=== PATIENT | male | born 1965 | race Caucasian/White ===

== ENCOUNTER → 2016-12-04 | Outpatient (CLI) | payer OTHER ==
[~2016-12-04] MED LIST: ADVA100A INH; ALBUAER3 INH; CIPR-9 PO; METR-1 PO; PERC5TAB12 PO
[2016-12-04 12:06] LABS: AUTOMATED NEUTROPHIL # 15.4 TH/MM3 (1.8-7.7); BASOPHIL % 0.2 % (0.0-2.0); EOSINOPHIL # 0.1 TH/MM3 (0-0.4); EOSINOPHIL % 0.8 % (0.0-4.0); HEMATOCRIT 45.1 % (39.0-51.0); HEMO FLAGS DIFF FINAL; LYMPH % 9.8 % (9.0-44.0); LYMPHOCYTE # 1.9 TH/MM3 (1.0-4.8); MEAN CELL VOLUME 95.3 FL (80.0-100.0); MEAN CORPUSCULAR HEMOGLOBIN 31.6 PG (27.0-34.0); MEAN CORPUSCULAR HGB CONC 33.1 % (32.0-36.0); MONO % 9.5 % (0.0-8.0); NEUT % 79.7 % (16.0-70.0); PLATELET COUNT 210 TH/MM3 (150-450); RED BLOOD COUNT 4.73 MIL/MM3 (4.50-5.90); RED CELL DISTRIBUTION WIDTH 13.2 % (11.6-17.2); WHITE BLOOD COUNT 19.3 TH/MM3 (4.0-11.0)
[2016-12-04 12:26] LABS: ALT (GPT) 22 U/L (12-78); ANION GAP 8 MEQ/L (5-15); AST (GOT) 12 U/L (15-37); BICARBONATE 26.6 MEQ/L (21.0-32.0); BLOOD UREA NITROGEN 10 MG/DL (7-18); CHLORIDE 103 MEQ/L (98-107); GLOMERULAR FILTRATION RATE 75 ML/MIN (>89); GLUCOSE,FASTING 88 MG/DL (74-99); POTASSIUM 4.5 MEQ/L (3.5-5.1); SODIUM (NA) 138 MEQ/L (136-145)
[2016-12-04 12:36] LABS: ALKALINE PHOSPHATASE 85 U/L (45-117); HDL CHOLESTEROL 53.9 MG/DL (40.0-60.0); LDL CHOLESTEROL 110 MG/DL (0-99); TOTAL BILIRUBIN ADULT 1.2 MG/DL (0.2-1.0)
== END ==
LOC: CLAB 11:47
PROVIDERS: ATTEND Family Medicine
DX: J45.909 Unspecified asthma, uncomplicated (principal); R10.30 Lower abdominal pain, unspecified
CPT/HCPCS: 36415; 80053; 80061; 84443; 85025

== ENCOUNTER → 2016-12-04 | Outpatient (CLI) | payer OTHER ==
--- NOTE | 2016-12-04 12:50 | RADRPT ---
EXAM DATE/TIME: 12/04/2016 12:18 [facility] COMPARISON: CHEST PA & LAT, July 28, 2015, 21:42. INDICATIONS : Pain all over abdomen, especially on left side for several months, some nausea and diarrhea, family h istory of diverticulosis, no abdominal surgery MEDICAL HISTORY : None. SURGICAL HISTORY : None. ENCOUNTER: Initial ACUITY: 3 months PAIN SCORE: 5/10 LOCATION: Bilateral abdomen FINDINGS: Supine and upright views of the abdomen were performed. The abdominal bowel gas pattern is normal. No air fluid levels are seen. No abnormal masses, calcifications, or organomegaly is seen. The visu alized lower lungs are clear. No evidence of free intraperitoneal gas. There is some compression of the T12 vertebral body. This was present on a prior chest x-ray from 07/28/15. There is some degenera tive change in the lower lumbar spine. CONCLUSION: Negative abdominal series. Abdiaziz Hope MD on December 04, 2016 at 12:42 Board Certified Radiologist. This report was verified electronically.
== END ==
LOC: HRAD 12:07
PROVIDERS: ATTEND Family Medicine
DX: J45.909 Unspecified asthma, uncomplicated (principal); R10.30 Lower abdominal pain, unspecified
CPT/HCPCS: 74020

== ENCOUNTER 2017-01-11 17:24 | Inpatient (IN) | payer OTHER ==
[~2017-01-11] VITALS: Ht 175.3 cm; Wt 85.0 kg
[~2017-01-11 17:24] MED LIST changes: -CIPR-9 PO; -METR-1 PO; -PERC5TAB12 PO
[2017-01-11 17:25] VITALS: BP 130/84; PULSE 97; RESP 20; TEMP 98.5; O2SAT 97
[2017-01-11] MEDS ORDERED: SODIUM CHLORIDE 0.9% FLUSH 10 ML FLUSH IV FLUSH PRN ×2 (17:45→22:45)
--- NOTE | 2017-01-11 18:05 | PD ---
HPI Chief Complaint: GI Complaint Time Seen by Provider: 18:03 Travel History International Travel<30 days: No Contact w/Intl Traveler<30days: No Traveled to known affect area: No History of Present Illness HPI Patient 51-year-old male presents to emergency department for what feels like a "blockage" in his abdomen. Patient states he's never had an obstruction before. He states his been having nausea for the past few days has been unable tolerate by mouth liquids. Denies any fevers. He states he started to feel very weak because he can't get any nutrients into his system. He also states she's been having some nonbloody diarrhea. States his abdomen may be a little bit more distended than previous. Denies any dysuria denies any heavy alcohol use in the past. PFSH Past Medical History Asthma: Yes Blood Disorders: No Cancer: No Cardiovascular Problems: No Endocrine: No Genitourinary: No Immune Disorder: No Musculoskeletal: Yes Neurologic: No Psychiatric: No Reproductive: No Respiratory: Yes (ASTHMA) Past Surgical History Body Medical Devices: ROBSON LEFT LEG Other Surgery: Yes Social History Alcohol Use: No Tobacco Use: No Substance Use: No Allergies-Medications (Allergen,Severity, Reaction): Coded Allergies: No Known Allergies (Unverified , 01/11/17) Reported Meds & Prescriptions Reported Meds & Active Scripts Active Advair Diskus Inh (Fluticasone-Salmeterol Inh) 100-50 Mcg/Blist Aer 1 Puff INH BID Rinse mouth after use. Proair Hfa 8.5 GM Inh (Albuterol Sulfate) 90 Mcg/Act Aer 2 Puff INH Q6H PRN 108 mcg/actuation Review of Systems Except as stated in HPI: all other systems reviewed are Neg Physical Exam Narrative GENERAL: [Well-developed well-nourished, appears minimally uncomfortable. SKIN: Focused skin assessment warm/dry. HEAD: Atraumatic. Normocephalic. EYES: Pupils equal and round. No scleral icterus. No injection or drainage. ENT: No nasal bleeding or discharge. Mucous membranes pink and moist. NECK: Trachea midline. No JVD. CARDIOVASCULAR: Regular rate and rhythm. No murmur appreciated. RESPIRATORY: No accessory muscle use. Clear to auscultation. Breath sounds equal bilaterally. GASTROINTESTINAL: Abdomen soft, non-tender, possibly minimally distended. Hepatic and splenic margins not palpable. Bowel sounds are hypoactive. Diffusely minimally tender without any rebound or percussive tenderness. MUSCULOSKELETAL: No obvious deformities. No clubbing. No cyanosis. No edema. NEUROLOGICAL: Awake and alert. No obvious cranial nerve deficits. Motor grossly within normal limits. Normal speech. PSYCHIATRIC: Appropriate mood and affect; insight and judgment normal. Data Data Last Documented VS Vital Signs Date Time Temp Pulse Resp B/P Pulse Ox O2 Delivery O2 Flow Rate FiO2 01/11/17 18:13 Room Air 01/11/17 17:25 98.5 97 20 130/84 97 Orders Complete Blood Count With Diff (01/11/17 17:41) Comprehensive Metabolic Panel (01/11/17 17:41) Lipase (01/11/17 17:41) Urinalysis - C+S If Indicated (01/11/17 17:41) Iv Access Insert/Monitor (01/11/17 17:41) Ecg Monitoring (01/11/17 17:41) Oximetry (01/11/17 17:41) Sodium Chloride 0.9% Flush (Ns Flush) (01/11/17 17:45) Ct Abd/Pel W Iv Contrast(Rout) (01/11/17 ) Iohexol 350 Inj (Omnipaque 350 Inj) (01/11/17 18:54) NPO (01/11/17 19:18) Insert Ng Tube (01/11/17 19:18) Lactic Acid (01/11/17 19:18) Blood Culture (01/11/17 19:23) Ampicillin-Sulbactam Inj (Unasyn Inj) (01/11/17 19:30) Consult General Surgery (01/11/17 ) (Hub Use Only)Inp Phy Cons/Ref (01/11/17 ) Consult Donovan Nfs (01/11/17 ) Lorazepam Inj (Ativan Inj) (01/11/17 21:15) Lidocaine 2% Jelly (Xylocaine 2% Jelly) (01/11/17 21:15) Sodium Chlor 0.9% 1000 Ml Inj (Ns 1000 M (01/11/17 21:30) Diet Npo (01/12/17 Breakfast) Admit Order (Ed Use Only) (01/11/17 ) Labs Laboratory Tests Test 01/11/17 01/11/1701/11/17 18:10 18:25 18:49 White Blood Count 28.4 TH/MM3 Red Blood Count 5.17 MIL/MM3 Hemoglobin 16.2 GM/DL Hematocrit 49.5 % Mean Corpuscular Volume 95.9 FL Mean Corpuscular Hemoglobin 31.4 PG Mean Corpuscular Hemoglobin 32.7 % Concent Red Cell Distribution Width 13.9 % Platelet Count 243 TH/MM3 Mean Platelet Volume 11.4 FL Neutrophils (%) (Auto) 90.5 % Lymphocytes (%) (Auto) 3.2 % Monocytes (%) (Auto) 6.1 % Eosinophils (%) (Auto) 0.0 % Basophils (%) (Auto) 0.2 % Neutrophils # (Auto) 25.7 TH/MM3 Lymphocytes # (Auto) 0.9 TH/MM3 Monocytes # (Auto) 1.7 TH/MM3 Eosinophils # (Auto) 0.0 TH/MM3 Basophils # (Auto) 0.0 TH/MM3 CBC Comment DIFF FINAL Differential Comment Sodium Level 135 MEQ/L Potassium Level 4.1 MEQ/L Chloride Level 97 MEQ/L Carbon Dioxide Level 27.6 MEQ/L Anion Gap 10 MEQ/L Blood Urea Nitrogen 19 MG/DL Creatinine 1.17 MG/DL Estimat Glomerular Filtration 66 ML/MIN Rate Random Glucose 118 MG/DL Calcium Level 9.6 MG/DL Total Bilirubin 0.6 MG/DL Aspartate Amino Transf 13 U/L (AST/SGOT) Alanine Aminotransferase 17 U/L (ALT/SGPT) Alkaline Phosphatase 98 U/L Total Protein 8.6 GM/DL Albumin 3.4 GM/DL Lipase 67 U/L Urine Color YELLOW Urine Turbidity HAZY Urine pH 6.0 Urine Specific [place] 1.043 Urine Protein 300 mg/dL Urine Glucose (UA) NEG mg/dL Urine Ketones 40 mg/dL Urine Occult Blood MOD Urine Nitrite NEG Urine Bilirubin NEG Urine Urobilinogen 2.0 MG/DL Urine Leukocyte Esterase NEG Urine RBC 3 /hpf Urine WBC 5 /hpf Urine Squamous Epithelial 1 /hpf Cells Urine Mucus MANY /lpf Microscopic Urinalysis Comment CULT NOT INDICATED Lactic Acid Level 1.6 mmol/L MDM Medical Decision Making Medical Screen Exam Complete: Yes Emergency Medical Condition: Yes Differential Diagnosis Small bowel obstruction, diverticular abscess, acute abdomen, electro-light abnormality, sepsis. Narrative Course Patient roomed in the emergency department, does have a distended abdomen and my concern is for obstruction versus ileus. CAT scan was indicated and does show that the patient apparently has small bowel obstruction with an intra- abdominal abscess. At 2044 Dr. Serrano is at the bedside to examine patient. He was started on Unasyn and a fluid bolus was given. His vital signs are stable at this time. The remainder of the patient's labs do not indicate severe sepsis or septic shock. Dr. Serrano has requested medicine admission for management of sepsis and he will follow for surgical options. An NG tube was ultimately placed after Dr. Serrano remained recommendation and confirmed by KUB. Dose of Ativan was ordered prior to placement of NG tube. Report was given to who will admit. Critical Care Narrative Aggregate critical care time was 35 minutes. Time to perform other separately billable procedures was not included in the critical care time. My time did not include minutes spent treating any other patients simultaneously or on activities that did not directly contribute to the patient's treatment. The services I provided to this patient were to treat and/or prevent clinically significant deterioration that could result in: , Disability, organ failure, need for surgery, bowel perforation. I provided critical care services requiring my management, as noted below: Chart data review, documentation time, medication orders and management, vital sign assessments/reviewing monitor data, ordering and reviewing lab tests, ordering and interpreting/reviewing x-rays and diagnostic studies, care of the patient and discussion of the patient with the admitting physicians. Extensive time spent counseling patient about the need for admission and NG tube Diagnosis Primary Impression: Small bowel obstruction Additional Impressions: Intestinal diverticular abscess Sepsis Qualified Code: A41.9 - Sepsis, due to unspecified organism Admitting Information Admitting Physician Requests: Admit Condition: Stable Jett Garcia MD Jan 11, 2017 18:05
[2017-01-11 18:38] LABS: AUTOMATED NEUTROPHIL # 25.7 TH/MM3 (1.8-7.7); BASOPHIL % 0.2 % (0.0-2.0); HEMATOCRIT 49.5 % (39.0-51.0); HEMO FLAGS DIFF FINAL; LYMPH % 3.2 % (9.0-44.0); LYMPHOCYTE # 0.9 TH/MM3 (1.0-4.8); MEAN CELL VOLUME 95.9 FL (80.0-100.0); MEAN CORPUSCULAR HEMOGLOBIN 31.4 PG (27.0-34.0); MEAN CORPUSCULAR HGB CONC 32.7 % (32.0-36.0); MONO % 6.1 % (0.0-8.0); NEUT % 90.5 % (16.0-70.0); PLATELET COUNT 243 TH/MM3 (150-450); RED BLOOD COUNT 5.17 MIL/MM3 (4.50-5.90); RED CELL DISTRIBUTION WIDTH 13.9 % (11.6-17.2); WHITE BLOOD COUNT 28.4 TH/MM3 (4.0-11.0)
[2017-01-11 18:43] LABS: BLOOD, URINE MOD (NEG); COMMENT (UR) CULT NOT INDICATED; CULTURE IF INDICATED CULT NOT INDICATED; GLUCOSE,URINE NEG (NEG); KETONE, URINE 40 mg/dL (NEG); MUCUS URINE MANY /lpf (OCC); NITRITE,URINE NEG (NEG); SQUAMOUS EPITHELIAL CELL URINE 1 /hpf (0-5); URINE COLOR YELLOW (YELLW/STRAW)
[2017-01-11] MEDS ORDERED: IOHEXOL 350 MG/ML 10 ML VIAL (for RAD DIAG) IV ONE (18:54)
--- NOTE | 2017-01-11 19:18 | RADRPT ---
EXAM DATE/TIME: 01/11/2017 18:32 [facility] COMPARISON: ABDOMEN FLAT & UPRIGHT, December 04, 2016, 12:18. INDICATIONS : Diffuse abdomen pain with nausea, vomiting and diarrhea for four days. IV CONTRAST: 90 cc Omnipaque 350 (iohexol) IV ORAL CONTRAST: No oral contrast ingested. RADIATION DOSE: 9.96 CTDIvol (mGy) MEDICAL HISTORY : None SURGICAL HISTORY : None. ENCOUNTER: Initial ACUITY: 4 - 6 days PAIN SCALE: 6/10 LOCATION: Bilateral abdomen TECHNIQUE: Volumetric scanning of the abdomen and pelvis was performed. Using automated exposure control and ad justment of the mA and/or kV according to patient size, radiation dose was kept as low as reasonably achievable to obtain optimal diagnostic quality images. FINDINGS: The examination is abnormal demonstrating multiple dilated loops of small bowel with air fluid levels and small bowel loops measuring up to 4 cm in diameter. There is a transition point which is seen i n the lower midline abdomen, best seen on image #51. At this transition point there is a thin-walled lesion with air-fluid level that measures 3.8 cm. A portion of the sigmoid colon is present close t o this area and there is induration of of the fat between the sigmoid colon and this air-fluid level. There also multiple small diverticula throughout the sigmoid colon. No evidence of free fluid in t he pelvis. The liver, gallbladder, spleen, kidneys, adrenal glands, aorta, and pancreas are normal in appearance . The intra-abdominal wall is intact. No evidence of inguinal hernia. Urinary bladder has smooth m argins. There is some thickening along the inferior pulmonary ligament on the left side with possibl e air bronchograms suggesting a small infiltrate or atelectasis. No evidence of pleural effusion. T he right lower lung is clear. Osseous structures are intact. CONCLUSION: Small bowel obstruction with a transition point in the lower midline abdomen and with some induration of the fat about what appears to be a thin-walled abscess, possibly related to mid sigmoid diverticu litis. Filemon Ladd MD on January 11, 2017 at 19:08 Board Certified Radiologist. This report was verified electronically.
[2017-01-11 19:26] LABS: ALKALINE PHOSPHATASE 98 U/L (45-117); ALT (GPT) 17 U/L (12-78); ANION GAP 10 MEQ/L (5-15); AST (GOT) 13 U/L (15-37); BICARBONATE 27.6 MEQ/L (21.0-32.0); BLOOD UREA NITROGEN 19 MG/DL (7-18); CHLORIDE 97 MEQ/L (98-107); GLOMERULAR FILTRATION RATE 66 ML/MIN (>89); POTASSIUM 4.1 MEQ/L (3.5-5.1); SODIUM (NA) 135 MEQ/L (136-145); TOTAL BILIRUBIN ADULT 0.6 MG/DL (0.2-1.0)
[2017-01-11] MEDS ORDERED: AMPICILLIN-SULBACTAM INJ 3 GM in SODIUM CHLORIDE 0.9% INJ 100 ML IV ONE (19:30)
[2017-01-11] MEDS ORDERED: LORazepam 2 MG/ML VIAL IV PUSH ONE (21:15)
[2017-01-11] MEDS ORDERED: LIDOCAINE 2% JELLY 30 ML TUBE TOPICAL ONE (21:15)
[2017-01-11] MEDS ORDERED: SODIUM CHLOR 0.9% 1000 ML INJ 1,000 ML IV ONE (21:30)
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
[2017-01-11 22:43] VITALS: BP 145/77; PULSE 100; RESP 20; O2SAT 96
[2017-01-11] MEDS ORDERED: ACETAMINOPHEN 325 MG TAB PO PRN ×2 (22:45)
[2017-01-11] MEDS ORDERED: NALOXONE HCL 0.4 MG/ML AMP IV PRN (22:45)
[2017-01-11] MEDS ORDERED: RESP: ALBUTEROL 2.5 MG/IPRATROPIUM 0.5 MG NEB (PRN) NEB (22:45)
--- NOTE | 2017-01-11 22:55 | HHI.HP ---
[facility] Adela Todd MD Admission Diagnosis SEPSIS, abdominal abscess, SBO. Diagnoses: (1) Intestinal diverticular abscess (2) Sepsis (3) Small bowel obstruction (4) COPD (chronic obstructive pulmonary disease) (5) Perforated diverticulum (6) Leukocytosis (7) Asthma Chief Complaint: Abdominal pain Travel History International Travel<30 Days: No Contact w/Intl Traveler <30 Da: No Traveled to Known Affected Are: No Sepsis Criteria SIRS Criteria (2 or more): Heart rate over 90, WBC > 51103, < 4000 or > 10% bands Sepsis Criteria (SIRS+source): Infect source susp/known Criteria Outcome: Meets sepsis criteria History of Present Illness 51-year-old male with a history of asthma presented to the ED for evaluation of worsening symptoms abdominal pain 4 days rated and 8/10 in intensity associated with emesis and nausea. The pain is sharp and patient denies any traumatic event, prior surgical history. He reports, the pain to have started as an acute and sudden onset without any warning. He has had significant decrease by mouth intake CT abdomen in ED revealed perforated diverticulitis along with small bowel obstruction with WBC of 28,000. He reports some shortness of breath however no chest pain or GI bleed Review of Systems Other 12 systems reviewed and are negative except for the one mentioned in history of present illness Past Family Social History Past Medical History Asthma: Yes Past Surgical History ROBSON LEFT LEG Reported Medications Advair Diskus Inh (Fluticasone-Salmeterol Inh) 100-50 Mcg/Blist Aer 1 Puff INH BID Rinse mouth after use. Proair Hfa 8.5 GM Inh (Albuterol Sulfate) 90 Mcg/Act Aer 2 Puff INH Q6H PRN 108 mcg/actuation Allergies: Coded Allergies: No Known Allergies (Unverified , 01/11/17) Family History Family history positive for diverticular disease Father had a history of asthma, CAD Social History Alcohol Use: No Tobacco Use: No Substance Use: No Physical Exam Vital Signs Vital Signs Date Time Temp Pulse Resp B/P Pulse Ox O2 Delivery O2 Flow Rate FiO2 01/11/17 22:43 100 20 145/77 96 Room Air 01/11/17 18:13 Room Air 01/11/17 17:25 98.5 97 20 130/84 97 Room Air Physical Exam GENERAL: This is a well-nourished, well-developed patient, in no apparent distress. SKIN: No rashes, ecchymoses or lesions. Cool and dry. HEAD: Atraumatic. Normocephalic. No temporal or scalp tenderness. EYES: Pupils equal round and reactive. Extraocular motions intact. No scleral icterus. No injection or drainage. ENT: Nose without bleeding, purulent drainage or septal hematoma. Throat without erythema, tonsillar hypertrophy or exudate. Uvula midline. Airway patent. NECK: Trachea midline. No JVD or lymphadenopathy. Supple, nontender, no meningeal signs. CARDIOVASCULAR: Regular rate and rhythm without murmurs, gallops, or rubs. RESPIRATORY: Clear to auscultation. Breath sounds equal bilaterally. No wheezes , rales, or rhonchi. GASTROINTESTINAL: Abdomen soft, mildly tender, nondistended. No hepato- splenomegaly, or palpable masses. Hypoactive bowel sounds MUSCULOSKELETAL: Extremities without clubbing, cyanosis, or edema. No joint tenderness, effusion, or edema noted. No calf tenderness. Negative Homans sign bilaterally. NEUROLOGICAL: Awake and alert. Cranial nerves II through XII intact. Motor and sensory grossly within normal limits. Five out of 5 muscle strength in all muscle groups. Normal speech. Laboratory Laboratory Tests Test 01/11/17 01/11/17 01/11/17 18:10 18:25 18:49 White Blood Count 28.4 Red Blood Count 5.17 Hemoglobin 16.2 Hematocrit 49.5 Mean Corpuscular Volume 95.9 Mean Corpuscular Hemoglobin 31.4 Mean Corpuscular Hemoglobin 32.7 Concent Red Cell Distribution Width 13.9 Platelet Count 243 Mean Platelet Volume 11.4 Neutrophils (%) (Auto) 90.5 Lymphocytes (%) (Auto) 3.2 Monocytes (%) (Auto) 6.1 Eosinophils (%) (Auto) 0.0 Basophils (%) (Auto) 0.2 Neutrophils # (Auto) 25.7 Lymphocytes # (Auto) 0.9 Monocytes # (Auto) 1.7 Eosinophils # (Auto) 0.0 Basophils # (Auto) 0.0 CBC Comment DIFF FINAL Differential Comment Sodium Level 135 Potassium Level 4.1 Chloride Level 97 Carbon Dioxide Level 27.6 Anion Gap 10 Blood Urea Nitrogen 19 Creatinine 1.17 Estimat Glomerular Filtration 66 Rate Random Glucose 118 Calcium Level 9.6 Total Bilirubin 0.6 Aspartate Amino Transf 13 (AST/SGOT) Alanine Aminotransferase 17 (ALT/SGPT) Alkaline Phosphatase 98 Total Protein 8.6 Albumin 3.4 Lipase 67 Urine Color YELLOW Urine Turbidity HAZY Urine pH 6.0 Urine Specific [place] 1.043 Urine Protein 300 Urine Glucose (UA) NEG Urine Ketones 40 Urine Occult Blood MOD Urine Nitrite NEG Urine Bilirubin NEG Urine Urobilinogen 2.0 Urine Leukocyte Esterase NEG Urine RBC 3 Urine WBC 5 Urine Squamous Epithelial 1 Cells Urine Mucus MANY Microscopic Urinalysis Comment CULT NOT INDICATED Lactic Acid Level 1.6 Date/Time Procedure Status Source Growth 01/11/17 19:40 Aerobic Blood Culture Received Blood Peripheral Pending 01/11/17 19:40 Anaerobic Blood Culture Received Blood Peripheral Pending Result Diagram: 01/11/17 1810 01/11/17 1810 Imaging Last Impressions Abdomen/Pelvis CT 01/11/17 0000 Signed Impressions: Service Date/Time: Wednesday, January 11, 2017 18:32 - CONCLUSION: Small bowel obstruction with a transition point in the lower midline abdomen and with some induration of the fat about what appears to be a thin-walled abscess, possibly related to mid sigmoid diverticulitis. Filemon Ladd MD Assessment and Plan Problem List: (1) Sepsis ICD Code: A41.9 Status: Acute (2) Intestinal diverticular abscess ICD Code: K63.0 Status: Acute (3) Small bowel obstruction ICD Code: K56.69 Status: Acute (4) COPD (chronic obstructive pulmonary disease) ICD Code: J44.9 Status: Acute (5) Asthma ICD Code: J45.909 Status: Acute (6) Leukocytosis ICD Code: D72.829 Status: Acute (7) Perforated diverticulum ICD Code: K57.80 Status: Acute Assessment and Plan 51-year-old man with Sepsis : Meets sepsis criteria; Heart rate over 90, WBC > 91189, < 4000 or > 10 % bands, Infect source susp/known (abdominal wall abscess/diverticulitis), treatment with Unasyn IV in ED 1, however will start Rocephin 1 g IV every 24 and Flagyl 500 mg IV every 8H pending culture Abdominal wall abscess/sigmoid diverticulitis Perforated diverticulitis -CT abdomen noted and review by me with finding of Small bowel obstruction with a transition point in the lower midline abdomen and with some induration of the fat about what appears to be a thin-walled abscess, possibly related to mid sigmoid diverticulitis -Treatment with Rocephin 1 g IV every 24 hours and Flagyl 500 mg every 8 hour pending culture report -Consult interventional radiology for evaluation for possible drainage of abscess Small Bowel obstruction Appreciate input from general surgery Continue with above antibiotics Nothing by mouth, NG tube placement, IV fluid hydration , pain management accordingly Asthma/COPD No exacerbation DuoNeb when necessary DVT prophylaxis: Bilateral SCDs GI prophylaxis: PPI Code Status Full code Discussed Condition With Patient, mother, ED physician, Physician Certification 2 Midnight Certification Type: Admission for Inpatient Services Order for Inpatient Services The services are ordered in accordance with Medicare regulations or non- Medicare payer requirements, as applicable. In the case of services not specified as inpatient-only, they are appropriately provided as inpatient services in accordance with the 2-midnight benchmark. Estimated LOS (days): 2 days is the estimated time the patient will need to remain in the hospital, assuming treatment plan goals are met and no additional complications. Post-Hospital Plan: Not yet determined Juan Pablo Hawkins MD Jan 11, 2017 22:55
[2017-01-11 23:25] VITALS: BP 138/78; PULSE 81; RESP 17; TEMP 97.9; O2SAT 96
[2017-01-11] MEDS: SODIUM CHLOR 0.9% 1000 ML INJ 1,000 ML IV SCH (23:28)
[2017-01-12] MEDS: MORPHINE SULFATE 4 MG/ML INJ IV PRN ×2 (00:04→05:27)
[2017-01-12] MEDS ORDERED: PATIENT OWN MEDICATION INH SCH (00:45)
[2017-01-12] MEDS: PHENOL 1.4% SOLN 180 ML BTL OROPHARYNG PRN ×2 (00:53→05:28)
--- NOTE | 2017-01-12 00:57 | RADRPT ---
EXAM DATE/TIME: 01/12/2017 00:34 [facility] COMPARISON: ABDOMEN FLAT & UPRIGHT, December 04, 2016, 12:18. CT ABDOMEN & PELVIS W CONTRAST, January 11, 2017, 18:32 . INDICATIONS : NG tube placement. MEDICAL HISTORY : None. SURGICAL HISTORY : None. ENCOUNTER: Subsequent ACUITY: 2 days PAIN SCORE: 0/10 LOCATION: upper quadrant abdomen FINDINGS: There is an NG tube in the stomach. There continues to be dilated loops of small bowel in the midabdo men. CONCLUSION: NG tube in the stomach. Timbo He MD on January 12, 2017 at 0:54 Board Certified Radiologist. This report was verified electronically.
[2017-01-12 06:24] LABS: AUTOMATED NEUTROPHIL # 18.8 TH/MM3 (1.8-7.7); BASOPHIL % 0.2 % (0.0-2.0); EOSINOPHIL % 0.1 % (0.0-4.0); HEMATOCRIT 44.2 % (39.0-51.0); HEMO FLAGS DIFF FINAL; LYMPH % 6.6 % (9.0-44.0); LYMPHOCYTE # 1.5 TH/MM3 (1.0-4.8); MEAN CELL VOLUME 95.6 FL (80.0-100.0); MEAN CORPUSCULAR HEMOGLOBIN 31.3 PG (27.0-34.0); MEAN CORPUSCULAR HGB CONC 32.7 % (32.0-36.0); NEUT % 84.1 % (16.0-70.0); PLATELET COUNT 223 TH/MM3 (150-450); RED BLOOD COUNT 4.62 MIL/MM3 (4.50-5.90); RED CELL DISTRIBUTION WIDTH 13.8 % (11.6-17.2); WHITE BLOOD COUNT 22.3 TH/MM3 (4.0-11.0)
[2017-01-12 06:58] LABS: ALKALINE PHOSPHATASE 77 U/L (45-117); ALT (GPT) 12 U/L (12-78); ANION GAP 8 MEQ/L (5-15); AST (GOT) 9 U/L (15-37); BICARBONATE 28.5 MEQ/L (21.0-32.0); BLOOD UREA NITROGEN 17 MG/DL (7-18); CHLORIDE 106 MEQ/L (98-107); GLOMERULAR FILTRATION RATE 81 ML/MIN (>89); POTASSIUM 4.2 MEQ/L (3.5-5.1); SODIUM (NA) 142 MEQ/L (136-145); TOTAL BILIRUBIN ADULT 0.6 MG/DL (0.2-1.0)
[2017-01-12 08:00] VITALS: BP 138/78; PULSE 68; RESP 18; TEMP 97; O2SAT 95
[2017-01-12] MEDS: PANTOPRAZOLE SODIUM 40 MG VIAL IV PUSH SCH (08:27)
[2017-01-12] MEDS: SODIUM CHLOR 0.9% 1000 ML INJ 1,000 ML IV SCH ×2 (08:34→19:57)
[2017-01-12] MEDS: BUDESONIDE-FORMOTEROL 80/4.5 MCG INHALER INH SCH ×2 (09:00→19:57)
[2017-01-12] MEDS: SODIUM CHLORIDE 0.9% FLUSH 10 ML FLUSH IV FLUSH SCH ×2 (09:00→19:57)
[2017-01-12] MEDS ORDERED: INFLUENZA VIRUS VACCINE (QUADRIVALENT) 0.5 ML SYR IM ONE (09:00)
[2017-01-12] MEDS ORDERED: PNEUMOCOCCAL POLYVALENT INJ 25 MCG/0.5 ML SYR IM ONE (09:00)
--- NOTE | 2017-01-12 09:47 | RADRPT ---
EXAM DATE/TIME: 01/12/2017 00:00 [facility] COMPARISON: CT ABDOMEN & PELVIS W CONTRAST, January 11, 2017, 18:32. INDICATIONS : Diverticular abscess. FINDINGS: Abscess noted centrally. Multiple dilated bowel loops surrounding this small abscess. CONCLUSION: Abscess seen centrally is not amenable to percutaneous CT-guided drainage. Juan Pablo Pearl MD on January 12, 2017 at 9:43 Board Certified Radiologist. This report was verified electronically.
[2017-01-12 12:00] VITALS: BP 137/75; PULSE 73; RESP 17; TEMP 98.1; O2SAT 95
--- NOTE | 2017-01-12 14:34 | HHI.PR ---
Subjective Remarks Follow up SBO and abscess. Patient seen and examined while laying in bed. NGT noted to drain 800cc so far. He denies any severe pain, but states he is having less discomfort in his abdomen with the NGT in place. Still not passing any gas. IR was consulted for but they stated the abscess is centrally located and can not be drained. Explained this to the patient and told him we will wait for surgery to decide the next course of action. He has no other complaints at this time. Objective Vitals Vital Signs Date Time Temp Pulse Resp B/P Pulse Ox O2 Delivery O2 Flow Rate FiO2 01/12/17 12:00 98.1 73 17 137/75 95 01/12/17 08:00 97.0 68 18 138/78 95 01/11/17 23:25 97.9 81 17 138/78 96 01/11/17 22:43 100 20 145/77 96 Room Air 01/11/17 18:13 Room Air 01/11/17 17:25 98.5 97 20 130/84 97 Room Air I/O 01/11/17 01/11/17 01/11/17 01/12/17 01/12/17 01/12/17 07:00 15:00 23:00 07:00 15:00 23:00 Intake Total 585 ml Output Total 800 ml Balance -215 ml Intake Oral 0 ml IV Total 585 ml Output Urine Total 600 ml Gastric Drainage Total 200 ml Result Diagram: 01/12/17 0522 01/12/17 0522 Imaging Last Impressions Consultation 01/12/17 0000 Signed Impressions: Service Date/Time: Thursday, January 12, 2017 00:00 - CONCLUSION: Abscess seen centrally is not amenable to percutaneous CT-guided drainage. Juan Pablo Pearl MD Abdomen X-Ray 01/12/17 0000 Signed Impressions: Service Date/Time: Thursday, January 12, 2017 00:34 - CONCLUSION: NG tube in the stomach. Timbo He MD Abdomen/Pelvis CT 01/11/17 0000 Signed Impressions: Service Date/Time: Wednesday, January 11, 2017 18:32 - CONCLUSION: Small bowel obstruction with a transition point in the lower midline abdomen and with some induration of the fat about what appears to be a thin-walled abscess, possibly related to mid sigmoid diverticulitis. Filemon Ladd MD Objective Remarks GENERAL: This is a well-nourished, well-developed patient, in no apparent distress. SKIN: No rashes, ecchymoses or lesions. Cool and dry. HEAD: Atraumatic. Normocephalic. ENT: Nose without bleeding, purulent drainage or septal hematoma. Airway patent. NGT in place NECK: Trachea midline. No JVD or lymphadenopathy. CARDIOVASCULAR: Regular rate and rhythm without murmurs, gallops, or rubs. RESPIRATORY: Clear to auscultation. Breath sounds equal bilaterally. No wheezes , rales, or rhonchi. GASTROINTESTINAL: Abdomen soft, mildly tender with palpitation, distended but improving. No hepato-splenomegaly, or palpable masses. Hypoactive bowel sounds MUSCULOSKELETAL: Extremities without clubbing, cyanosis, or edema. No calf tenderness. NEUROLOGICAL: Awake and alert. Motor and sensory grossly within normal limits. Five out of 5 muscle strength in all muscle groups. Normal speech. Medications and IVs Current Medications Medications (Trade) Dose Ordered Sig/Cleve Route Start Time Stop Time Status Last Admin (NS 1000 ml Inj) 1,000 ml @ 100 mls/hr Q10H IV 01/11/17 22:34 01/11/17 23:28 (NS Flush) 2 ml UNSCH PRN IV FLUSH 01/11/17 22:45 (NS Flush) 2 ml BID IV FLUSH 01/12/17 09:00 (Tylenol) 650 mg Q4H PRN PO 01/11/17 22:45 (Zofran Inj) 4 mg Q6H PRN IVP 01/11/17 22:45 (Tylenol) 650 mg Q6H PRN PO 01/11/17 22:45 (Morphine Inj) 2 mg Q1H PRN IV 01/11/17 22:45 01/12/17 05:27 (Narcan Inj) 0.4 mg UNSCH PRN IV 01/11/17 22:45 (Protonix Inj) 40 mg Q24H IV PUSH 01/12/17 09:00 01/12/17 08:27 (Chloraseptic [place]) 2 spray Q2H PRN OROPHARYNG 01/12/17 00:30 01/12/17 05:28 (Symbicort 80-4.5 Mcg Inh) 2 puff BID INH 01/12/17 09:00 A/P Problem List: (1) Sepsis ICD Code: A41.9 Status: Acute (2) Intestinal diverticular abscess ICD Code: K63.0 Status: Acute (3) Small bowel obstruction ICD Code: K56.69 Status: Acute (4) COPD (chronic obstructive pulmonary disease) ICD Code: J44.9 Status: Acute (5) Asthma ICD Code: J45.909 Status: Acute (6) Leukocytosis ICD Code: D72.829 Status: Acute (7) Perforated diverticulum ICD Code: K57.80 Status: Acute Assessment and Plan 51-year-old man with Sepsis,Meets sepsis criteria; Heart rate over 90, WBC > 87828, < 4000 or > 10% bands, Infect source susp/known (abdominal wall abscess/diverticulitis), treatment with Unasyn IV in ED 1. -Cont Rocephin 1 g IV every 24 and Flagyl 500 mg IV every 8H -Blood culture pending, no growth in 1 day Abdominal wall abscess/sigmoid diverticulitis Perforated diverticulitis -CT abdomen noted . Small bowel obstruction with a transition point in the lower midline abdomen and with some induration of the fat about what appears to be a thin-walled abscess, possibly related to mid sigmoid diverticulitis -Treatment with Rocephin 1 g IV every 24 hours and Flagyl 500 mg every 8 hour pending culture report -Consult interventional radiology, who states they are unable to drain it. Awaiting surgery recommendations. Small Bowel obstruction -General surgery consult, who recommends IV hydration and npo at this time -Cont NGT -NPO with IV hydration Asthma/COPD, chronic -DuoNeb when necessary DVT prophylaxis: Bilateral SCDs GI prophylaxis: PPI Written by ERIKA Castellanos acting as scribe for Dr. Haji] on 01/12/17 at 12:40. This note was transcribed by scribe [ERIKA Castellanos]. I, Dr. Lauryn Paiz personally performed the history, physical exam, and medical decision making; and confirmed the accuracy of the information in the transcribed note. Authenticated by Dr. Lauryn Paiz on 01/12/17 at 1300. Michela Villareal Jan 12, 2017 14:34 Lauryn Paiz MD Jan 12, 2017 14:40
[2017-01-12 16:00] VITALS: BP 127/69; PULSE 73; RESP 17; TEMP 96.4; O2SAT 96
[2017-01-12] MEDS ORDERED: metroNIDAZOLE 500 MG INJ 100 ML IV SCH (17:00)
--- NOTE | 2017-01-12 17:20 | HHI.PR ---
Subjective Subjective Notes Resting in bed Asking for ice chips Family at bedside Objective Vitals/I&O Vital Signs Date Time Temp Pulse Resp B/P Pulse Ox O2 Delivery O2 Flow Rate FiO2 01/12/17 16:00 96.4 73 17 127/69 96 01/11/17 22:43 Room Air Labs Laboratory Tests Test 01/11/17 01/11/17 01/11/17 01/12/17 18:10 18:25 18:49 05:22 White Blood Count 28.4 22.3 Red Blood Count 5.17 4.62 Hemoglobin 16.2 14.4 Hematocrit 49.5 44.2 Mean Corpuscular Volume 95.9 95.6 Mean Corpuscular Hemoglobin 31.4 31.3 Mean Corpuscular Hemoglobin 32.7 32.7 Concent Red Cell Distribution Width 13.9 13.8 Platelet Count 243 223 Mean Platelet Volume 11.4 11.4 Neutrophils (%) (Auto) 90.5 84.1 Lymphocytes (%) (Auto) 3.2 6.6 Monocytes (%) (Auto) 6.1 9.0 Eosinophils (%) (Auto) 0.0 0.1 Basophils (%) (Auto) 0.2 0.2 Neutrophils # (Auto) 25.7 18.8 Lymphocytes # (Auto) 0.9 1.5 Monocytes # (Auto) 1.7 2.0 Eosinophils # (Auto) 0.0 0.0 Basophils # (Auto) 0.0 0.0 CBC Comment DIFF FINAL DIFF FINAL Differential Comment Sodium Level 135 142 Potassium Level 4.1 4.2 Chloride Level 97 106 Carbon Dioxide Level 27.6 28.5 Anion Gap 10 8 Blood Urea Nitrogen 19 17 Creatinine 1.17 0.98 Estimat Glomerular Filtration 66 81 Rate Random Glucose 118 92 Calcium Level 9.6 8.9 Total Bilirubin 0.6 0.6 Aspartate Amino Transf 13 9 (AST/SGOT) Alanine Aminotransferase 17 12 (ALT/SGPT) Alkaline Phosphatase 98 77 Total Protein 8.6 7.1 Albumin 3.4 3.0 Lipase 67 Urine Color YELLOW Urine Turbidity HAZY Urine pH 6.0 Urine Specific [place] 1.043 Urine Protein 300 Urine Glucose (UA) NEG Urine Ketones 40 Urine Occult Blood MOD Urine Nitrite NEG Urine Bilirubin NEG Urine Urobilinogen 2.0 Urine Leukocyte Esterase NEG Urine RBC 3 Urine WBC 5 Urine Squamous Epithelial 1 Cells Urine Mucus MANY Microscopic Urinalysis Comment CULT NOT INDICATED Lactic Acid Level 1.6 Date/Time Procedure Status Source Growth 01/11/17 19:40 Aerobic Blood Culture - Preliminary Resulted Blood Peripheral NO GROWTH IN 1 DAY 01/11/17 19:40 Anaerobic Blood Culture - Preliminary Resulted Blood Peripheral NO GROWTH IN 1 DAY Cardiovascular: Regular Lungs: Clear Abdomen: Other (mildly distended; mildly tender ) Extremities: No edema Narrative Exam NGT in place A/P Assessment and Plan 51 year old male with acute diverticulitis with perforation -Increase IVF to 125 cc/hr -Cipro/Flagyl -NPO---okay for a few ice chips -Okay to clamp NGT while OOB -Encouraged mobilization -IR unable to place drain Attending Statement patient seen at bedside clamp ng increase ivf Attestation The exam, history, and the medical decision-making described in the above note were completed with the assistance of the mid-level provider. I reviewed and agree with the findings presented. I attest that I had a [id number] encounter with the patient on the same day, and personally performed and documented my assessment and findings in the medical record. Sandra Null Jan 12, 2017 17:20 Jam Serrano MD January 25, 2017 23:55
[2017-01-12] MEDS: CIPROFLOXACIN 400 MG PREMIX 200 ML IV SCH (19:56)
[2017-01-12 20:06] VITALS: BP 140/81; PULSE 69; RESP 17; TEMP 99.3; O2SAT 99
[2017-01-12] MEDS ORDERED: diphenhydrAMINE HCL 50 MG/ML VIAL IV PUSH ONE (21:00)
[2017-01-13 00:09] VITALS: BP 146/82; PULSE 60; RESP 17; TEMP 98.6; O2SAT 96
[2017-01-13] MEDS: metroNIDAZOLE 500 MG INJ 100 ML IV SCH ×4 (01:09→22:30)
[2017-01-13] MEDS: SODIUM CHLOR 0.9% 1000 ML INJ 1,000 ML IV SCH ×2 (02:19→07:43)
[2017-01-13 05:22] LABS: HEMATOCRIT 41.6 % (39.0-51.0); MEAN CELL VOLUME 93.8 FL (80.0-100.0); MEAN CORPUSCULAR HEMOGLOBIN 31.7 PG (27.0-34.0); MEAN CORPUSCULAR HGB CONC 33.7 % (32.0-36.0); PLATELET COUNT 231 TH/MM3 (150-450); RED BLOOD COUNT 4.43 MIL/MM3 (4.50-5.90); RED CELL DISTRIBUTION WIDTH 13.8 % (11.6-17.2); REVIEW FLAG FINAL; WHITE BLOOD COUNT 13.8 TH/MM3 (4.0-11.0)
[2017-01-13 05:34] LABS: BICARBONATE 26.6 MEQ/L (21.0-32.0); POTASSIUM 3.4 MEQ/L (3.5-5.1)
[2017-01-13] MEDS: CIPROFLOXACIN 400 MG PREMIX 200 ML IV SCH ×2 (07:39→19:18)
[2017-01-13] MEDS: SODIUM CHLORIDE 0.9% FLUSH 10 ML FLUSH IV FLUSH SCH ×2 (07:39→19:17)
[2017-01-13] MEDS: BUDESONIDE-FORMOTEROL 80/4.5 MCG INHALER INH SCH ×2 (07:39→19:18)
[2017-01-13] MEDS: PANTOPRAZOLE SODIUM 40 MG VIAL IV PUSH SCH (07:40)
[2017-01-13 08:00] VITALS: BP 153/78; PULSE 58; RESP 17; TEMP 98.9; O2SAT 94
[2017-01-13] MEDS: ONDANSETRON HCL 4 MG/2 ML VIAL IVP PRN (08:17)
--- NOTE | 2017-01-13 08:51 | RADRPT ---
EXAM DATE/TIME: 01/13/2017 08:01 [facility] COMPARISON: CT ABDOMEN & PELVIS W CONTRAST, January 11, 2017, 18:32. ABDOMEN SINGLE VIEW, January 12, 2017, 0:34. INDICATIONS : Nausea. MEDICAL HISTORY : None. SURGICAL HISTORY : None. ENCOUNTER: Subsequent ACUITY: 3 days PAIN SCORE: 0/10 LOCATION: Bilateral abdomen FINDINGS: 2 supine frontal views of the abdomen demonstrate abnormally dilated small bowel in the central abdom en measuring up to 5.5 cm in diameter. There is increased dilatation and number of air-filled dilated loops of small bowel since yesterday's examination. The nasogastric tube is looped in the stomach. T here is no definite colon or rectal gas visualized. No organomegaly or abnormal calcifications are se en. There are degenerative changes of the lumbar spine. CONCLUSION: Abnormally dilated small bowel, increased from the prior examination. Findings are suspicious for sma ll bowel obstruction. Abdiaziz Bailey MD on January 13, 2017 at 8:47 Board Certified Radiologist. This report was verified electronically.
--- NOTE | 2017-01-13 09:42 | HHI.PR ---
Subjective Remarks Patient reports he feels a little better today. KUB this morning is worse with suspicion of small bowel obstruction. Had nausea this morning. NG tube in place and draining. Not passing gas below. Abdominal pain is controlled with the pain medication. Objective Vitals Vital Signs Date Time Temp Pulse Resp B/P Pulse Ox O2 Delivery O2 Flow Rate FiO2 01/13/17 08:00 98.9 58 17 153/78 94 01/13/17 00:09 98.6 60 17 146/82 96 01/12/17 20:06 99.3 69 17 140/81 99 01/12/17 16:00 96.4 73 17 127/69 96 01/12/17 12:00 98.1 73 17 137/75 95 I/O 01/12/17 01/12/17 01/12/17 01/13/17 01/13/17 01/13/17 06:59 14:59 22:59 06:59 14:59 22:59 Intake Total 585 ml 1084 ml 439 ml 1107 ml Output Total 800 ml 400 ml 735 ml 1400 ml Balance -215 ml 684 ml -296 ml -293 ml Intake Oral 0 ml 0 ml IV Total 585 ml 1084 ml 439 ml 1107 ml Output Urine Total 600 ml 200 ml 360 ml 300 ml Gastric Drainage Total 200 ml 200 ml 375 ml 1100 ml # Bowel Movements 0 Result Diagram: 01/13/1741901/13/17419 Objective Remarks GENERAL: This is a well-nourished, well-developed patient, in no acute distress. SKIN: No rashes, ecchymoses or lesions. Cool and dry. HEAD: Atraumatic. Normocephalic. ENT: Nose without bleeding, purulent drainage or septal hematoma. Airway patent. NGT in place NECK: Trachea midline. No JVD or lymphadenopathy. CARDIOVASCULAR: Regular rate and rhythm without murmurs, gallops, or rubs. RESPIRATORY: Clear to auscultation. Breath sounds equal bilaterally. No wheezes , rales, or rhonchi. GASTROINTESTINAL: Abdomen soft, mildly tender with palpitation, distended. Hypoactive bowel sounds. MUSCULOSKELETAL: Extremities without clubbing, cyanosis, or edema. No calf tenderness. NEUROLOGICAL: Awake and alert. Motor and sensory grossly within normal limits. Five out of 5 muscle strength in all muscle groups. Normal speech. A/P Problem List: (1) Sepsis ICD Code: A41.9 Status: Acute (2) Intestinal diverticular abscess ICD Code: K63.0 Status: Acute (3) Small bowel obstruction ICD Code: K56.69 Status: Acute (4) COPD (chronic obstructive pulmonary disease) ICD Code: J44.9 Status: Acute (5) Asthma ICD Code: J45.909 Status: Acute (6) Leukocytosis ICD Code: D72.829 Status: Acute (7) Perforated diverticulum ICD Code: K57.80 Status: Acute Assessment and Plan 51-year-old man with Sepsis,Meets sepsis criteria on admission: Heart rate over 90, WBC > 56281, < 4000 or > 10% bands, Infect source susp/known (abdominal wall abscess/ diverticulitis), treatment with Unasyn IV in ED 1. -Cont Rocephin 1 g IV every 24 and Flagyl 500 mg IV every 8H -Blood culture pending, no growth to date Abdominal wall abscess/sigmoid diverticulitis Perforated diverticulitis -CT abdomen noted . Small bowel obstruction with a transition point in the lower midline abdomen and with some induration of the fat about what appears to be a thin-walled abscess, possibly related to mid sigmoid diverticulitis -Treatment with Rocephin 1 g IV every 24 hours and Flagyl 500 mg every 8 hour pending culture report - Interventional radiology unable to drain it. Awaiting surgery recommendations. Small Bowel obstruction -General surgery following, who recommends continuing conservative management with IV hydration and npo at this time -Cont NGT -NPO with IV hydration Hypokalemia: - Replace and monitor. Add K to IVF Asthma/COPD, chronic -DuoNeb when necessary DVT prophylaxis: Bilateral SCDs GI prophylaxis: PPI Discussed with general surgery, Dr. Serrano. Lauryn Paiz MD Jan 13, 2017 09:42
[2017-01-13] MEDS: D5-1/2 NS + KCL 20 MEQ INJ 1,000 ML IV SCH ×2 (11:00→14:43)
[2017-01-13 12:00] VITALS: BP 130/73; PULSE 55; RESP 16; TEMP 98.6; O2SAT 97
--- NOTE | 2017-01-13 13:58 | HHI.PR ---
Subjective Subjective Notes increased output from NG still soft distended, pain is the same, no flatus no bm Objective Vitals/I&O Vital Signs Date Time Temp Pulse Resp B/P Pulse Ox O2 Delivery O2 Flow Rate FiO2 01/13/17 12:00 98.6 55 16 130/73 97 01/11/17 22:43 Room Air Labs Laboratory Tests Test 01/13/17 04:20 White Blood Count 13.8 Red Blood Count 4.43 Hemoglobin 14.0 Hematocrit 41.6 Mean Corpuscular Volume 93.8 Mean Corpuscular Hemoglobin 31.7 Mean Corpuscular Hemoglobin 33.7 Concent Red Cell Distribution Width 13.8 Platelet Count 231 Mean Platelet Volume 11.2 Sodium Level 144 Potassium Level 3.4 Chloride Level 108 Carbon Dioxide Level 26.6 Anion Gap 9 Blood Urea Nitrogen 14 Creatinine 0.84 Estimat Glomerular Filtration 96 Rate Random Glucose 90 Calcium Level 8.4 Date/Time Procedure Status Source Growth 01/11/17 19:40 Aerobic Blood Culture - Preliminary Resulted Blood Peripheral NO GROWTH IN 2 DAYS 01/11/17 19:40 Anaerobic Blood Culture - Preliminary Resulted Blood Peripheral NO GROWTH IN 2 DAYS Cardiovascular: Regular Lungs: Clear Abdomen: Other (soft, +ttp mild, mild distension) A/P Assessment and Plan perforated diverticulitis SBO- AXR shows persistent obstruction, IR unable to drain abscess PLAN NG sxn abd exams IV abx continue attempt at non operative tx dvt ppx Jam Serrano MD Jan 13, 2017 13:58
[2017-01-13] MEDS: ENOXAPARIN SODIUM 40 MG/0.4 ML SYRINGE SQ SCH (14:43)
[2017-01-13 16:00] VITALS: BP 139/82; PULSE 68; RESP 18; TEMP 98.4; O2SAT 95
[2017-01-13 19:52] VITALS: BP 144/78; PULSE 76; RESP 17; TEMP 98.4; O2SAT 93
[2017-01-13] MEDS ORDERED: diphenhydrAMINE HCL 50 MG/ML VIAL IV PUSH ONE (20:00)
[2017-01-13 23:47] VITALS: BP 138/81; PULSE 59; RESP 17; TEMP 98.6; O2SAT 95
[2017-01-14 05:37] LABS: HEMATOCRIT 38.4 % (39.0-51.0); MEAN CELL VOLUME 94.2 FL (80.0-100.0); MEAN CORPUSCULAR HEMOGLOBIN 32.5 PG (27.0-34.0); MEAN CORPUSCULAR HGB CONC 34.5 % (32.0-36.0); PLATELET COUNT 226 TH/MM3 (150-450); RED BLOOD COUNT 4.08 MIL/MM3 (4.50-5.90); RED CELL DISTRIBUTION WIDTH 13.6 % (11.6-17.2); REVIEW FLAG FINAL; WHITE BLOOD COUNT 14.4 TH/MM3 (4.0-11.0)
[2017-01-14 05:52] LABS: BICARBONATE 29.7 MEQ/L (21.0-32.0); POTASSIUM 3.4 MEQ/L (3.5-5.1)
[2017-01-14] MEDS: metroNIDAZOLE 500 MG INJ 100 ML IV SCH ×3 (06:24→21:07)
[2017-01-14] MEDS: D5-1/2 NS + KCL 20 MEQ INJ 1,000 ML IV SCH ×3 (06:24→17:40)
[2017-01-14 08:00] VITALS: BP 134/70; PULSE 51; RESP 12; TEMP 99.3; O2SAT 93
[2017-01-14] MEDS: MORPHINE SULFATE 4 MG/ML INJ IV PRN (09:33)
[2017-01-14] MEDS: CIPROFLOXACIN 400 MG PREMIX 200 ML IV SCH ×2 (09:33→21:07)
[2017-01-14] MEDS: BUDESONIDE-FORMOTEROL 80/4.5 MCG INHALER INH SCH ×2 (09:34→21:09)
[2017-01-14] MEDS: SODIUM CHLORIDE 0.9% FLUSH 10 ML FLUSH IV FLUSH SCH ×2 (09:34→21:00)
[2017-01-14] MEDS: PANTOPRAZOLE SODIUM 40 MG VIAL IV PUSH SCH (09:34)
--- NOTE | 2017-01-14 09:42 | HHI.PR ---
Subjective Remarks Patient states that he feels slightly better today, however he states he is not passing gas, feels distended and queasy. Denies chest pain or shortness of breath. Afebrile Still having large output from NG tube. Objective Vitals Vital Signs Date Time Temp Pulse Resp B/P Pulse Ox O2 Delivery O2 Flow Rate FiO2 01/14/17 08:00 99.3 51 12 134/70 93 01/13/17 23:47 98.6 59 17 138/81 95 01/13/17 19:52 98.4 76 17 144/78 93 01/13/17 16:00 98.4 68 18 139/82 95 01/13/17 12:00 98.6 55 16 130/73 97 I/O 01/13/17 01/13/17 01/13/17 01/14/17 01/14/17 01/14/17 07:00 15:00 23:00 07:00 15:00 23:00 Intake Total 1107 ml 715 ml 530 ml Output Total 1400 ml 1050 ml 1280 ml 1150 ml Balance -293 ml -335 ml -750 ml -1150 ml Intake Oral 0 ml IV Total 1107 ml 715 ml 530 ml Output Urine Total 300 ml 250 ml 280 ml 400 ml Gastric Drainage Total 1100 ml 800 ml 1000 ml 750 ml # Bowel Movements 0 Result Diagram: 01/14/17 0459 01/14/17 0459 Imaging Last Impressions Abdomen X-Ray 01/13/17 0600 Signed Impressions: Service Date/Time: Friday, January 13, 2017 08:01 - CONCLUSION: Abnormally dilated small bowel, increased from the prior examination. Findings are suspicious for small bowel obstruction. Abdiaziz Bailey MD Consultation 01/12/17 0000 Signed Impressions: Service Date/Time: Thursday, January 12, 2017 00:00 - CONCLUSION: Abscess seen centrally is not amenable to percutaneous CT-guided drainage. Juan Pablo Pearl MD Abdomen/Pelvis CT 01/11/17 0000 Signed Impressions: Service Date/Time: Wednesday, January 11, 2017 18:32 - CONCLUSION: Small bowel obstruction with a transition point in the lower midline abdomen and with some induration of the fat about what appears to be a thin-walled abscess, possibly related to mid sigmoid diverticulitis. Filemon Ladd MD Objective Remarks GENERAL: This is a well-nourished, well-developed patient, in no acute distress. SKIN: No rashes, ecchymoses or lesions. Cool and dry. HEAD: Atraumatic. Normocephalic. ENT: Nose without bleeding, purulent drainage or septal hematoma. Airway patent. NGT in place NECK: Trachea midline. No JVD or lymphadenopathy. CARDIOVASCULAR: Regular rate and rhythm without murmurs, gallops, or rubs. RESPIRATORY: Clear to auscultation. Breath sounds equal bilaterally. No wheezes , rales, or rhonchi. GASTROINTESTINAL: Abdomen soft, mildly tender with palpitation, distended. Hypoactive bowel sounds. MUSCULOSKELETAL: Extremities without clubbing, cyanosis, or edema. No calf tenderness. NEUROLOGICAL: Awake and alert. Motor and sensory grossly within normal limits. Five out of 5 muscle strength in all muscle groups. Normal speech. Procedures None Medications and IVs Current Medications Medications (Trade) Dose Ordered Sig/Cleve Route Start Time Stop Time Status Last Admin (NS Flush) 2 ml UNSCH PRN IV FLUSH 01/11/17 22:45 (NS Flush) 2 ml BID IV FLUSH 01/12/17 09:00 01/14/17 09:34 (Tylenol) 650 mg Q4H PRN PO 01/11/17 22:45 (Zofran Inj) 4 mg Q6H PRN IVP 01/11/17 22:45 01/13/17 08:17 (Tylenol) 650 mg Q6H PRN PO 01/11/17 22:45 (Morphine Inj) 2 mg Q1H PRN IV 01/11/17 22:45 01/14/17 09:33 (Narcan Inj) 0.4 mg UNSCH PRN IV 01/11/17 22:45 (Protonix Inj) 40 mg Q24H IV PUSH 01/12/17 09:00 01/14/17 09:34 (Chloraseptic [place]) 2 spray Q2H PRN OROPHARYNG 01/12/17 00:30 01/12/17 05:28 Budesonide/ Formoterol Fumarate 2 puff 2 puff BID INH 01/12/17 09:00 01/14/17 09:34 Ciprofloxacin/ Dextrose 200 ml @ 200 mls/hr Q12HR IV 01/12/17 21:00 01/14/17 09:33 Metronidazole 100 ml @ 100 mls/hr Q8HR IV 01/13/17 01:00 01/14/17 06:24 (D5-1/2 NS + KCl 20 Meq Inj) 1,000 ml @ 125 mls/hr Q8H IV 01/13/17 10:00 01/14/17 06:24 Enoxaparin Sodium 40 mg 40 mg Q24H SQ 01/13/17 14:00 01/13/17 14:43 (KCl 20 Meq Premix Inj) 100 ml @ 50 mls/hr Q2H IV 01/14/17 10:00 01/14/17 13:59 Urinary Catheter: No Vascular Central Line Catheter: No A/P Problem List: (1) Sepsis ICD Code: A41.9 Status: Acute Plan: Present on admission. Patient been treated with IV antibiotics. Currently on IV ciprofloxacin and IV Flagyl. Blood cultures no growth to date. Continue IV fluids WBC still elevated at 14k (2) Intestinal diverticular abscess ICD Code: K63.0 Status: Acute Plan: CT abdomen and pelvis showed some small bowel obstruction with a transition point in the lower midline abdomen with some induration of the fat about what appears to be a thin walled abscess, possibly related to mid sigmoid diverticulitis. Interventional radiology and as per documentation not amenable to percutaneous CT guided drainage. Continue IV antibiotics as above. (3) Small bowel obstruction ICD Code: K56.69 Status: Acute Plan: General surgery consulted on following. General surgery recommends continuation of conservative management with IV hydration and continue the patient nothing by mouth at this time. Continue NG tube and IV fluids. Continue to follow general surgery recommendations. (4) COPD (chronic obstructive pulmonary disease) ICD Code: J44.9 Status: Chronic Plan: Seems to be stable. Tinea DuoNeb's as needed. (5) Asthma ICD Code: J45.909 Status: Chronic Plan: As above. (6) Leukocytosis ICD Code: D72.829 Status: Acute Plan: UVC still elevated. Likely secondary to sepsis. Continue to monitor CBC with differential. (7) Perforated diverticulum ICD Code: K57.80 Status: Acute Plan: Continue management as per general surgery recommendations. Assessment and Plan GI prophylaxis: Continue PPI. DVT plexus: Continue Lovenox subcutaneously. Problem Qualifiers (1) Sepsis: Qualified Code: A41.9 - Sepsis, due to unspecified organism (2) COPD (chronic obstructive pulmonary disease): Qualified Code: J42 - Chronic bronchitis, unspecified chronic bronchitis type Antonio Plummer MD Jan 14, 2017 09:42
[2017-01-14] MEDS ORDERED: POTASSIUM CHLORIDE 10 MEQ CONTROLLED RELEASE TAB PO ONE (09:45)
[2017-01-14 12:00] VITALS: BP 137/84; PULSE 62; RESP 12; TEMP 96.5; O2SAT 93
[2017-01-14] MEDS: POTASSIUM CHLOR 20 MEQ PREMIX 100 ML IV SCH ×2 (12:00→14:22)
[2017-01-14] MEDS: ENOXAPARIN SODIUM 40 MG/0.4 ML SYRINGE SQ SCH (14:22)
[2017-01-14 16:00] VITALS: BP 129/72; PULSE 56; RESP 12; TEMP 97.9; O2SAT 94
--- NOTE | 2017-01-14 16:04 | HHI.PR ---
Subjective Subjective Notes Resting in bed Reports not passing gas Feels less bloated Objective Vitals/I&O Vital Signs Date Time Temp Pulse Resp B/P Pulse Ox O2 Delivery O2 Flow Rate FiO2 01/14/17 12:00 96.5 62 12 137/84 93 01/11/17 22:43 Room Air Labs Laboratory Tests Test 01/14/17 04:59 White Blood Count 14.4 Red Blood Count 4.08 Hemoglobin 13.2 Hematocrit 38.4 Mean Corpuscular Volume 94.2 Mean Corpuscular Hemoglobin 32.5 Mean Corpuscular Hemoglobin 34.5 Concent Red Cell Distribution Width 13.6 Platelet Count 226 Mean Platelet Volume 10.5 Sodium Level 143 Potassium Level 3.4 Chloride Level 106 Carbon Dioxide Level 29.7 Anion Gap 7 Blood Urea Nitrogen 10 Creatinine 0.94 Estimat Glomerular Filtration 85 Rate Random Glucose 117 Calcium Level 8.7 Date/Time Procedure Status Source Growth 01/11/17 19:40 Aerobic Blood Culture - Preliminary Resulted Blood Peripheral NO GROWTH IN 3 DAYS 01/11/17 19:40 Anaerobic Blood Culture - Preliminary Resulted Blood Peripheral NO GROWTH IN 3 DAYS Cardiovascular: Regular Lungs: Clear Abdomen: Non-distended, Other (tender to palpation; mildly distended ) Extremities: No edema Narrative Exam NGT in place A/P Assessment and Plan 51 year old male with acute diverticulitis with perforation -Continue IVF -Cipro/Flagyl -NPO---okay for a few ice chips -Okay to clamp NGT while OOB -Encouraged mobilization -IR unable to place drain Attending Statement patient seen at bedside sbo with perf diverticuli surgical planning ir unable to drain Attestation The exam, history, and the medical decision-making described in the above note were completed with the assistance of the mid-level provider. I reviewed and agree with the findings presented. I attest that I had a [id number] encounter with the patient on the same day, and personally performed and documented my assessment and findings in the medical record. Sandra Null Jan 14, 2017 16:04 Jam Serrano MD January 27, 2017 13:23
[2017-01-14 16:45] VITALS: BP 93/67
[2017-01-14 20:00] VITALS: BP 146/81; PULSE 62; RESP 20; TEMP 98; O2SAT 96
[2017-01-15] VITALS: BP 141/78; PULSE 72; RESP 20; TEMP 97.6; O2SAT 95
[2017-01-15 04:00] VITALS: BP 133/68; PULSE 71; RESP 20; TEMP 97.8; O2SAT 95
[2017-01-15] MEDS: D5-1/2 NS + KCL 20 MEQ INJ 1,000 ML IV SCH ×3 (04:14→17:00)
[2017-01-15] MEDS: metroNIDAZOLE 500 MG INJ 100 ML IV SCH ×4 (05:18→23:32)
[2017-01-15 05:30] LABS: AUTOMATED NEUTROPHIL # 12.6 TH/MM3 (1.8-7.7); BASOPHIL % 0.3 % (0.0-2.0); EOSINOPHIL # 0.2 TH/MM3 (0-0.4); EOSINOPHIL % 1.2 % (0.0-4.0); HEMATOCRIT 41.3 % (39.0-51.0); HEMO FLAGS DIFF FINAL; LYMPH % 11.1 % (9.0-44.0); LYMPHOCYTE # 1.8 TH/MM3 (1.0-4.8); MEAN CELL VOLUME 95.7 FL (80.0-100.0); MEAN CORPUSCULAR HEMOGLOBIN 31.9 PG (27.0-34.0); MEAN CORPUSCULAR HGB CONC 33.3 % (32.0-36.0); MONO % 9.1 % (0.0-8.0); NEUT % 78.3 % (16.0-70.0); PLATELET COUNT 201 TH/MM3 (150-450); RED BLOOD COUNT 4.32 MIL/MM3 (4.50-5.90); RED CELL DISTRIBUTION WIDTH 13.6 % (11.6-17.2); WHITE BLOOD COUNT 16.1 TH/MM3 (4.0-11.0)
[2017-01-15 05:35] LABS: BICARBONATE 23.7 MEQ/L (21.0-32.0); POTASSIUM 3.7 MEQ/L (3.5-5.1)
--- NOTE | 2017-01-15 05:36 | RADRPT ---
EXAM DATE/TIME: 01/15/2017 04:36 [facility] COMPARISON: ABDOMEN KUB ONLY, January 13, 2017, 8:01. INDICATIONS : Obstruction. MEDICAL HISTORY : None. SURGICAL HISTORY : None. ENCOUNTER: Subsequent ACUITY: 4 - 6 days PAIN SCORE: Non-responsive. LOCATION: Bilateral chest FINDINGS: There is an NG tube in the stomach. There continue to be multiple dilated loops of small bowel mid ab domen. However the distention and number of bowel loops appears to be mildly improved compared to the prior study. No other significant changes are demonstrated. The colon remains non-dilated. CONCLUSION: Mild improvement in the bowel gas pattern compared to the prior study. There continue to be multiple dilated loops of small bowel mid abdomen. Timbo He MD on January 15, 2017 at 5:34 Board Certified Radiologist. This report was verified electronically.
[2017-01-15 08:00] VITALS: BP 148/74; PULSE 60; RESP 16; TEMP 98.1; O2SAT 95
[2017-01-15] MEDS: CIPROFLOXACIN 400 MG PREMIX 200 ML IV SCH ×2 (08:06→22:15)
[2017-01-15] MEDS: PANTOPRAZOLE SODIUM 40 MG VIAL IV PUSH SCH (08:06)
[2017-01-15] MEDS: SODIUM CHLORIDE 0.9% FLUSH 10 ML FLUSH IV FLUSH SCH ×2 (08:06→22:16)
[2017-01-15] MEDS: BUDESONIDE-FORMOTEROL 80/4.5 MCG INHALER INH SCH ×2 (08:13→22:15)
[2017-01-15] MEDS ORDERED: IOHEXOL 350 MG/ML 10 ML VIAL (for RAD DIAG) IV ONE (09:18)
--- NOTE | 2017-01-15 09:27 | RADRPT ---
EXAM DATE/TIME: 01/15/2017 09:06 [place] COMPARISON: CT ABDOMEN & PELVIS W CONTRAST, January 11, 2017, 18:32. INDICATIONS : Bowel obstruction, diffuse abdomen pain. Followup abscess. IV CONTRAST: 95 cc Omnipaque 350 (iohexol) IV ORAL CONTRAST: No oral contrast ingested. RADIATION DOSE: 12.60 CTDIvol (mGy) MEDICAL HISTORY : None SURGICAL HISTORY : None. ENCOUNTER: Initial ACUITY: 3 days PAIN SCALE: 4/10 LOCATION: diffuse abdomen pain TECHNIQUE: Volumetric scanning of the abdomen and pelvis was performed. Using automated exposure control and ad justment of the mA and/or kV according to patient size, radiation dose was kept as low as reasonably achievable to obtain optimal diagnostic quality images. FINDINGS: LOWER LUNGS: Atelectasis and/or scarring is noted in both lung bases. LIVER: Homogeneous density without lesion. There is no dilation of the biliary tree. No calcified gallston es. SPLEEN: Normal size without lesion. PANCREAS: Within normal limits. KIDNEYS: Normal in size and shape. There is no mass, stone or hydronephrosis. ADRENAL GLANDS: Within normal limits. VASCULAR: There is no aortic aneurysm. BOWEL/MESENTERY: There has been interval placement of a nasogastric tube which is coiled in the stomach with the tip a t the level of the distal stomach and pylorus. The stomach is decompressed. There are multiple loops of dilated small bowel again noted with air-fluid levels. Several these are slightly more prominent. There is a transition point again noted in the upper central abdomen with surrounding inflammatory ch ailin. The distal small bowel is decompressed as is the colon. There are scattered diverticuli. The fo esdras abscess in the posterior central abdomen has increased in size and now measures approximate 5.2 x 4.4 cm in greatest transverse and AP diameter. On the prior study this measured 3.8 x 2.8 cm. An air -fluid level is again noted. There is no free air. ABDOMINAL WALL: Within normal limits. RETROPERITONEUM: There is no lymphadenopathy. BLADDER: No wall thickening or mass. REPRODUCTIVE: Within normal limits. INGUINAL: There is no lymphadenopathy or hernia. MUSCULOSKELETAL: Within normal limits for patient age. CONCLUSION: 1. Interval increase in the size of the abscess in the upper pelvis. There is surrounding inflammator y change. 2. Findings consistent with a small bowel obstruction with transition point in the pelvis. The distal small bowel is decompressed. Several loops are slightly more prominent. There is no free air. 3. Interval placement of a nasogastric tube with the tip in the distal stomach or pylorus. Valentino Davis MD on January 15, 2017 at 9:18 Board Certified Radiologist. This report was verified electronically.
[2017-01-15] MEDS ORDERED: MIDAZOLAM HCL 2 MG/2 ML VIAL ONE (11:23)
[2017-01-15] MEDS ORDERED: FAMOTIDINE 20 MG/2 ML VIAL ONE (11:24)
[2017-01-15] MEDS ORDERED: BUPIVACAINE/EPINEPHRINE 0.25% PF 30 ML VIAL ONE (11:42)
[2017-01-15] MEDS ORDERED: PROPOFOL 200 MG/20 ML AMP IV ONE (12:00)
[2017-01-15] MEDS ORDERED: DEXTROSE 5% IN WATE 500 ML INJ 500 ML IV ONE (12:00)
[2017-01-15] MEDS ORDERED: ONDANSETRON HCL 4 MG/2 ML VIAL IV PUSH ONE (12:00)
[2017-01-15] MEDS ORDERED: LACTATED RINGER'S 1000 ML INJ 2,000 ML IV ONE (12:00)
[2017-01-15] MEDS ORDERED: DO NOT ADM ANY ANTICOAGULANT DRUGS PRN (13:44)
--- NOTE | 2017-01-15 13:46 | EKG ---
Date Performed: 01/15/2017 Time Performed: 11:28:57 PTAGE: 51 years EKG: Sinus rhythm NORMAL ECG COMPARED TO PRIOR ELECTROCARDIOGRAM, [place] has rotated leftward. PREVIOUS TRACING : 07/28/2015 21.58 DOCTOR: Rodolfo Walsh Interpretating Date/Time 01/15/2017 13:42:30
[2017-01-15] MEDS: ENOXAPARIN SODIUM 40 MG/0.4 ML SYRINGE SQ SCH (14:00)
[2017-01-15] MEDS ORDERED: fentaNYL CITRATE 250 MCG/5 ML AMP ONE (14:03)
--- NOTE | 2017-01-15 14:37 | HHI.PR ---
Immediate Post Op Note Procedure Date: Jan 15, 2017 Pre Op Diagnosis: intraabdominal abscess, possible perforated appendicitis vs diverticular disease , small bowel obstruction Post Op Diagnosis: same Surgeon: Jam Serrano MD Lunchroom Attendant(s): see or sheet Procedure: diagnostic laparoscopy, lap appy, laparoscopic drainage of abscess Findings: large intraabdominal abscess, inflamed distal appendix, diverticular disease of colon Complications: none Specimen(s) removed: abscess, appendix Estimated blood loss: 15cc Anesthesia: General Drains: MEG IVF (3000) Patient to: PACU Patient Condition: Good Jam Serrano MD Jan 15, 2017 14:37
[2017-01-15] MEDS: MORPHINE SULFATE 4 MG/ML INJ IV PRN ×3 (15:24→22:17)
[2017-01-15 16:00] VITALS: BP 126/69; PULSE 78; RESP 16; TEMP 96.5; O2SAT 93
--- NOTE | 2017-01-15 17:22 | HHI.PR ---
Subjective Remarks patient c/o abdominal pain not passing gas c/o abdominal distension. sp laparospopic exploration Objective Vitals Vital Signs Date Time Temp Pulse Resp B/P Pulse Ox O2 Delivery O2 Flow Rate FiO2 01/15/17 16:00 96.5 78 16 126/69 93 01/15/17 14:30 75 13 150/85 94 Nasal Cannula 4 01/15/17 14:15 80 16 153/86 94 Nasal Cannula 4 01/15/17 14:00 80 20 153/81 94 Nasal Cannula 4 01/15/17 13:45 98.1 89 20 172/90 99 Nasal Cannula 4 01/15/17 08:00 98.1 60 16 148/74 95 01/15/17 04:00 97.8 71 20 133/68 95 01/15/17 00:00 97.6 72 20 141/78 95 01/14/17 20:00 98.0 62 20 146/81 96 I/O 01/14/17 01/14/17 01/14/17 01/15/17 01/15/17 01/15/17 07:00 15:00 23:00 07:00 15:00 23:00 Intake Total 1336 ml 1000 ml 1000 ml 3300 ml Output Total 1150 ml 725 ml 1250 ml 400 ml 490 ml 90 ml Balance -1150 ml 611 ml -250 ml 600 ml 2810 ml -90 ml Intake Oral 0 ml 0 ml IV Total 1336 ml 1000 ml 1000 ml Other 3300 ml Output Urine Total 400 ml 325 ml 300 ml 100 ml 200 ml Gastric Drainage Total 750 ml 400 ml 950 ml 300 ml 275 ml Drainage Total 90 ml Estimated Blood Loss 15 ml # Voids 1 2 # Bowel Movements 0 0 0 Result Diagram: 01/15/17 0422 01/15/17 0422 Imaging Last Impressions Abdomen/Pelvis CT 01/15/17 0000 Signed Impressions: Service Date/Time: December 09:06 - CONCLUSION: 1. Interval increase in the size of the abscess in the upper pelvis. There is surrounding inflammatory change. 2. Findings consistent with a small bowel obstruction with transition point in the pelvis. The distal small bowel is decompressed. Several loops are slightly more prominent. There is no free air. 3. Interval placement of a nasogastric tube with the tip in the distal stomach or pylorus. Valentino Davis MD Abdomen X-Ray 01/15/17 0000 Signed Impressions: Service Date/Time: December 04:36 - CONCLUSION: Mild improvement in the bowel gas pattern compared to the prior study. There continue to be multiple dilated loops of small bowel mid abdomen. Timbo He MD Consultation 01/12/17 0000 Signed Impressions: Service Date/Time: Thursday, January 12, 2017 00:00 - CONCLUSION: Abscess seen centrally is not amenable to percutaneous CT-guided drainage. Juan Pablo Pearl MD Objective Remarks GENERAL: This is a well-nourished, well-developed patient, in no acute distress. SKIN: No rashes, ecchymoses or lesions. Cool and dry. HEAD: Atraumatic. Normocephalic. ENT: Nose without bleeding, purulent drainage or septal hematoma. Airway patent. NGT in place NECK: Trachea midline. No JVD or lymphadenopathy. CARDIOVASCULAR: Regular rate and rhythm without murmurs, gallops, or rubs. RESPIRATORY: Clear to auscultation. Breath sounds equal bilaterally. No wheezes , rales, or rhonchi. GASTROINTESTINAL: Abdomen soft, mildly tender with palpitation, distended. Hypoactive bowel sounds. MUSCULOSKELETAL: Extremities without clubbing, cyanosis, or edema. No calf tenderness. NEUROLOGICAL: Awake and alert. Motor and sensory grossly within normal limits. Five out of 5 muscle strength in all muscle groups. Normal speech. Medications and IVs Current Medications Medications (Trade) Dose Ordered Sig/Cleve Route Start Time Stop Time Status Last Admin (NS Flush) 2 ml UNSCH PRN IV FLUSH 01/11/17 22:45 (NS Flush) 2 ml BID IV FLUSH 01/12/17 09:00 01/15/17 22:16 (Tylenol) 650 mg Q4H PRN PO 01/11/17 22:45 (Zofran Inj) 4 mg Q6H PRN IVP 01/11/17 22:45 01/15/17 22:28 (Tylenol) 650 mg Q6H PRN PO 01/11/17 22:45 (Morphine Inj) 2 mg Q1H PRN IV 01/11/17 22:45 01/15/17 22:17 (Narcan Inj) 0.4 mg UNSCH PRN IV 01/11/17 22:45 (Protonix Inj) 40 mg Q24H IV PUSH 01/12/17 09:00 01/15/17 08:06 (Chloraseptic [place]) 2 spray Q2H PRN OROPHARYNG 01/12/17 00:30 01/12/17 05:28 Budesonide/ Formoterol Fumarate 2 puff 2 puff BID INH 01/12/17 09:00 01/15/17 22:15 Ciprofloxacin/ Dextrose 200 ml @ 200 mls/hr Q12HR IV 01/12/17 21:00 01/15/17 22:15 Metronidazole 100 ml @ 100 mls/hr Q8HR IV 01/13/17 01:00 01/15/17 23:32 (D5-1/2 NS + KCl 20 Meq Inj) 1,000 ml @ 125 mls/hr Q8H IV 01/13/17 10:00 01/15/17 17:00 (Lovenox Inj) 40 mg Q24H SQ 01/13/17 14:00 Hold 01/14/17 14:22 Miscellaneous Information ALL NURSING DEPARTME... UNSCH PRN .XX 01/15/17 13:44 01/16/17 13:43 A/P Problem List: (1) Sepsis ICD Code: A41.9 Status: Acute Plan: Present on admission. Patient been treated with IV antibiotics. Currently on IV ciprofloxacin and IV Flagyl. Blood cultures no growth to date. Continue IV fluids WBC still elevated at 16k (2) Intestinal diverticular abscess ICD Code: K63.0 Status: Acute Plan: CT abdomen and pelvis showed some small bowel obstruction with a transition point in the lower midline abdomen with some induration of the fat about what appears to be a thin walled abscess, possibly related to mid sigmoid diverticulitis. Interventional radiology and as per documentation not amenable to percutaneous CT guided drainage. 01/15 Likely abscess due to perforated appendix. Patient is sp diagnostic laparoscopy with appendectomy. Mnagement as per surgery. Continue Iv antibiotics as per ID. (3) Small bowel obstruction ICD Code: K56.69 Status: Acute Plan: General surgery consulted on following. GS initially recommended medical mangement, patient is sp diagnostic laparoscopy with appendectomy. Continue NG tube and IV fluids. Continue to follow general surgery recommendations. (4) COPD (chronic obstructive pulmonary disease) ICD Code: J44.9 Status: Chronic Plan: Seems to be stable. Tinea DuoNeb's as needed. (5) Asthma ICD Code: J45.909 Status: Chronic Plan: As above. (6) Leukocytosis ICD Code: D72.829 Status: Acute Plan: UVC still elevated. Likely secondary to sepsis. Continue to monitor CBC with differential. (7) Intra-abdominal abscess ICD Code: K65.1 Status: Acute Plan: Due to diverticular disease vs perforated appendicitis. Sp laparoscopy and drainage/appendectomy by GS Continue IV antibiotics, npo, Iv fluids, pain control, NG tube Assessment and Plan GI prophylaxis: Continue PPI. DVT plexus: Continue Lovenox subcutaneously. Problem Qualifiers (1) Sepsis: Qualified Code: A41.9 - Sepsis, due to unspecified organism (2) COPD (chronic obstructive pulmonary disease): Qualified Code: J42 - Chronic bronchitis, unspecified chronic bronchitis type Antonio Plummer MD Jan 15, 2017 17:22
[2017-01-15 18:05] VITALS: BP 119/74; PULSE 82; RESP 18; TEMP 99.9; O2SAT 93
[2017-01-15] MEDS: ONDANSETRON HCL 4 MG/2 ML VIAL IVP PRN (22:28)
[2017-01-16] VITALS: BP 126/72; PULSE 76; RESP 18; TEMP 97.6; O2SAT 94
[2017-01-16] MEDS: MORPHINE SULFATE 4 MG/ML INJ IV PRN ×3 (01:15→21:05)
[2017-01-16] MEDS: ONDANSETRON HCL 4 MG/2 ML VIAL IVP PRN ×2 (04:19→20:02)
[2017-01-16] MEDS: D5-1/2 NS + KCL 20 MEQ INJ 1,000 ML IV SCH ×3 (04:22→16:47)
[2017-01-16 05:04] LABS: AUTOMATED NEUTROPHIL # 12.2 TH/MM3 (1.8-7.7); BASOPHIL % 0.2 % (0.0-2.0); EOSINOPHIL # 0.1 TH/MM3 (0-0.4); EOSINOPHIL % 0.7 % (0.0-4.0); HEMATOCRIT 41.7 % (39.0-51.0); HEMO FLAGS DIFF FINAL; LYMPH % 9.3 % (9.0-44.0); LYMPHOCYTE # 1.4 TH/MM3 (1.0-4.8); MEAN CELL VOLUME 94.1 FL (80.0-100.0); MEAN CORPUSCULAR HEMOGLOBIN 31.2 PG (27.0-34.0); MEAN CORPUSCULAR HGB CONC 33.1 % (32.0-36.0); MONO % 7.7 % (0.0-8.0); NEUT % 82.1 % (16.0-70.0); PLATELET COUNT 242 TH/MM3 (150-450); RED BLOOD COUNT 4.43 MIL/MM3 (4.50-5.90); RED CELL DISTRIBUTION WIDTH 13.5 % (11.6-17.2); WHITE BLOOD COUNT 14.9 TH/MM3 (4.0-11.0)
[2017-01-16 05:11] LABS: BICARBONATE 27.7 MEQ/L (21.0-32.0); MAGNESIUM 1.7 MG/DL (1.5-2.5); POTASSIUM 3.9 MEQ/L (3.5-5.1)
[2017-01-16] MEDS: metroNIDAZOLE 500 MG INJ 100 ML IV SCH ×3 (05:27→23:12)
--- NOTE | 2017-01-16 05:31 | HHI.PR ---
Subjective Subjective Notes no acute issues, feels a little better, no fevers Objective Vitals/I&O Vital Signs Date Time Temp Pulse Resp B/P Pulse Ox O2 Delivery O2 Flow Rate FiO2 01/16/17 00:00 97.6 76 18 126/72 94 01/15/17 22:15 Nasal Cannula 2.00 Labs Laboratory Tests Test 01/16/17 04:04 White Blood Count 14.9 Red Blood Count 4.43 Hemoglobin 13.8 Hematocrit 41.7 Mean Corpuscular Volume 94.1 Mean Corpuscular Hemoglobin 31.2 Mean Corpuscular Hemoglobin 33.1 Concent Red Cell Distribution Width 13.5 Platelet Count 242 Mean Platelet Volume 10.6 Neutrophils (%) (Auto) 82.1 Lymphocytes (%) (Auto) 9.3 Monocytes (%) (Auto) 7.7 Eosinophils (%) (Auto) 0.7 Basophils (%) (Auto) 0.2 Neutrophils # (Auto) 12.2 Lymphocytes # (Auto) 1.4 Monocytes # (Auto) 1.2 Eosinophils # (Auto) 0.1 Basophils # (Auto) 0.0 CBC Comment DIFF FINAL Differential Comment Sodium Level 136 Potassium Level 3.9 Chloride Level 102 Carbon Dioxide Level 27.7 Anion Gap 6 Blood Urea Nitrogen 5 Creatinine 0.87 Estimat Glomerular Filtration 93 Rate Random Glucose 124 Calcium Level 7.7 Phosphorus Level 2.4 Magnesium Level 1.7 Date/Time Procedure Status Source Growth 01/15/17 12:20 Gram Stain Received Abscess Abdomen Pending 01/15/17 12:20 Wound Culture Received Abscess Abdomen Pending 01/15/17 12:20 Fungal Smear Received Abscess Abdomen Pending 01/15/17 12:20 Fungal Culture Received Abscess Abdomen Pending 01/15/17 12:20 Acid Fast Stain Received Abscess Abdomen Pending 01/15/17 12:20 Mycobacterial Culture Received Abscess Abdomen Pending 01/11/17 19:40 Aerobic Blood Culture - Preliminary Resulted Blood Peripheral NO GROWTH IN 4 DAYS 01/11/17 19:40 Anaerobic Blood Culture - Preliminary Resulted Blood Peripheral NO GROWTH IN 4 DAYS Cardiovascular: Regular Lungs: Clear Abdomen: Other (soft distended, incisions scant dry blood, rodolfo serous) A/P Assessment and Plan perforated diverticulitis vs acute perforated appy SBO, IR unable to drain abscess POD 1 Dx lap appy, drainage of abscess PLAN NG sxn, keep one more day abd exams IV abx dvt ppx, ok for lovenox Jam Garcia MD Jan 16, 2017 05:31
[2017-01-16 08:00] VITALS: BP 121/78; PULSE 70; RESP 16; TEMP 98.1; O2SAT 93
[2017-01-16] MEDS: PANTOPRAZOLE SODIUM 40 MG VIAL IV PUSH SCH (08:51)
[2017-01-16] MEDS: SODIUM CHLORIDE 0.9% FLUSH 10 ML FLUSH IV FLUSH SCH ×2 (08:51→20:10)
[2017-01-16] MEDS: CIPROFLOXACIN 400 MG PREMIX 200 ML IV SCH ×2 (08:51→23:01)
[2017-01-16] MEDS: BUDESONIDE-FORMOTEROL 80/4.5 MCG INHALER INH SCH ×2 (08:52→20:10)
[2017-01-16 12:00] VITALS: BP 146/97; PULSE 68; RESP 20; TEMP 97.8; O2SAT 95
[2017-01-16] MEDS: ENOXAPARIN SODIUM 40 MG/0.4 ML SYRINGE SQ SCH (14:10)
[2017-01-16 16:00] VITALS: BP 123/69; PULSE 79; RESP 16; TEMP 98; O2SAT 93
--- NOTE | 2017-01-16 17:14 | HHI.PR ---
Subjective Remarks c/o of abdominal pain on right side of abdomen mostly denies fevers/chills vital signs stable not passing gas ng tube still with large output Objective Vitals Vital Signs Date Time Temp Pulse Resp B/P Pulse Ox O2 Delivery O2 Flow Rate FiO2 01/16/17 12:00 97.8 68 20 146/97 95 01/16/17 08:00 98.1 70 16 121/78 93 01/16/17 00:00 97.6 76 18 126/72 94 01/15/17 22:15 Nasal Cannula 2.00 01/15/17 18:05 99.9 82 18 119/74 93 I/O 01/15/17 01/15/17 01/15/17 01/16/17 01/16/17 01/16/17 07:00 15:00 23:00 07:00 15:00 23:00 Intake Total 1000 ml 3300 ml 1256 ml 707 ml 1182 ml Output Total 400 ml 810 ml 1490 ml 215 ml 390 ml Balance 600 ml 2490 ml -234 ml 707 ml -215 ml 792 ml Intake Oral 0 ml 360 ml IV Total 1000 ml 896 ml 707 ml 1182 ml Other 3300 ml Output Urine Total 100 ml 350 ml 1250 ml Gastric Drainage Total 300 ml 275 ml 100 ml 125 ml 200 ml Drainage Total 170 ml 140 ml 90 ml 190 ml Estimated Blood Loss 15 ml # Voids 2 # Bowel Movements 0 0 1 Result Diagram: 01/16/17 0404 01/16/17 0404 Imaging Last Impressions Abdomen/Pelvis CT 01/15/17 0000 Signed Impressions: Service Date/Time: December 09:06 - CONCLUSION: 1. Interval increase in the size of the abscess in the upper pelvis. There is surrounding inflammatory change. 2. Findings consistent with a small bowel obstruction with transition point in the pelvis. The distal small bowel is decompressed. Several loops are slightly more prominent. There is no free air. 3. Interval placement of a nasogastric tube with the tip in the distal stomach or pylorus. Valentino Davis MD Abdomen X-Ray 01/15/17 0000 Signed Impressions: Service Date/Time: December 04:36 - CONCLUSION: Mild improvement in the bowel gas pattern compared to the prior study. There continue to be multiple dilated loops of small bowel mid abdomen. Timbo J. Siragusa, MD Consultation 01/12/17 0000 Signed Impressions: Service Date/Time: Thursday, January 12, 2017 00:00 - CONCLUSION: Abscess seen centrally is not amenable to percutaneous CT-guided drainage. Juan Pablo Pearl MD Objective Remarks GENERAL: This is a well-nourished, well-developed patient, in no acute distress. SKIN: No rashes, ecchymoses or lesions. Cool and dry. HEAD: Atraumatic. Normocephalic. ENT: Nose without bleeding, purulent drainage or septal hematoma. Airway patent. NGT in place NECK: Trachea midline. No JVD or lymphadenopathy. CARDIOVASCULAR: Regular rate and rhythm without murmurs, gallops, or rubs. RESPIRATORY: Clear to auscultation. Breath sounds equal bilaterally. No wheezes , rales, or rhonchi. GASTROINTESTINAL: Abdomen soft, mildly tender with palpitation, moderately distended. Sluggish bowel sounds MUSCULOSKELETAL: Extremities without clubbing, cyanosis, or edema. No calf tenderness. NEUROLOGICAL: Awake and alert. Motor and sensory grossly within normal limits. Five out of 5 muscle strength in all muscle groups. Normal speech. Procedures Diagnostic laparoscopy, Laparoscopic appendectomy on 01/15/2017 Medications and IVs Current Medications Medications (Trade) Dose Ordered Sig/Cleve Route Start Time Stop Time Status Last Admin (NS Flush) 2 ml UNSCH PRN IV FLUSH 01/11/17 22:45 (NS Flush) 2 ml BID IV FLUSH 01/12/17 09:00 01/15/17 22:16 (Tylenol) 650 mg Q4H PRN PO 01/11/17 22:45 (Zofran Inj) 4 mg Q6H PRN IVP 01/11/17 22:45 01/16/17 04:19 (Tylenol) 650 mg Q6H PRN PO 01/11/17 22:45 (Morphine Inj) 2 mg Q1H PRN IV 01/11/17 22:45 01/16/17 04:19 (Narcan Inj) 0.4 mg UNSCH PRN IV 01/11/17 22:45 (Protonix Inj) 40 mg Q24H IV PUSH 01/12/17 09:00 01/16/17 08:51 (Chloraseptic [place]) 2 spray Q2H PRN OROPHARYNG 4/24/17 00:30 01/12/17 05:28 Budesonide/ Formoterol Fumarate 2 puff 2 puff BID INH 01/12/17 09:00 01/16/17 08:52 Ciprofloxacin/ Dextrose 200 ml @ 200 mls/hr Q12HR IV 01/12/17 21:00 01/16/17 08:51 Metronidazole 100 ml @ 100 mls/hr Q8HR IV 01/13/17 01:00 01/16/17 14:10 (D5-1/2 NS + KCl 20 Meq Inj) 1,000 ml @ 125 mls/hr Q8H IV 01/13/17 10:00 01/16/17 16:47 (Lovenox Inj) 40 mg Q24H SQ 01/13/17 14:00 01/16/17 14:10 Urinary Catheter: No Vascular Central Line Catheter: No A/P Problem List: (1) Sepsis ICD Code: A41.9 Status: Acute Plan: Present on admission. Patient been treated with IV antibiotics. Currently on IV ciprofloxacin and IV Flagyl. Blood cultures no growth to date. Continue IV fluids WBC trending down to 14k (2) Intestinal diverticular abscess ICD Code: K63.0 Status: Acute Plan: CT abdomen and pelvis showed some small bowel obstruction with a transition point in the lower midline abdomen with some induration of the fat about what appears to be a thin walled abscess, possibly related to mid sigmoid diverticulitis. Interventional radiology and as per documentation not amenable to percutaneous CT guided drainage. 01/15 Likely abscess due to perforated appendix. Patient is sp diagnostic laparoscopy with appendectomy. Management as per surgery. Continue Iv antibiotics as per ID. (3) Small bowel obstruction ICD Code: K56.69 Status: Acute Plan: General surgery consulted on following. GS initially recommended medical mangement, patient is sp diagnostic laparoscopy with appendectomy. Continue NG tube and IV fluids. Continue to follow general surgery recommendations. Continue to keep NPO. (4) COPD (chronic obstructive pulmonary disease) ICD Code: J44.9 Status: Chronic Plan: Seems to be stable. Continue DuoNeb's as needed. (5) Asthma ICD Code: J45.909 Status: Chronic Plan: As above. (6) Leukocytosis ICD Code: D72.829 Status: Acute Plan: Likely secondary to sepsis. WBC trending down. Continue to monitor CBC with differential. (7) Intra-abdominal abscess ICD Code: K65.1 Status: Acute Plan: Due to diverticular disease vs perforated appendicitis. Sp laparoscopy and drainage/appendectomy by GS Continue IV antibiotics, npo, Iv fluids, pain control, NG tube Assessment and Plan GI prophylaxis: Continue PPI. DVT plexus: Continue Lovenox subcutaneously. Discharge Planning Continue to monitor in the medical floor. Problem Qualifiers (1) Sepsis: Qualified Code: A41.9 - Sepsis, due to unspecified organism (2) COPD (chronic obstructive pulmonary disease): Qualified Code: J42 - Chronic bronchitis, unspecified chronic bronchitis type (3) Leukocytosis: Qualified Code: D72.829 - Leukocytosis, unspecified type Antonio Plummer MD Jan 16, 2017 17:14
[2017-01-16] MEDS ORDERED: MAGNESIUM SULFATE 1 GM PREMIX 100 ML IV SCH ×2 (17:15→21:00)
[2017-01-16] MEDS ORDERED: SODIUM PHOSPHATE INJ 15 MMOL in SODIUM CHLORIDE 0.9% INJ 150 ML IV ONE (18:00)
[2017-01-16 20:00] VITALS: BP 124/75; PULSE 74; RESP 17; TEMP 98.7; O2SAT 94
[2017-01-17 00:54] VITALS: BP 116/72; PULSE 72; RESP 17; TEMP 97; O2SAT 97
[2017-01-17] MEDS: D5-1/2 NS + KCL 20 MEQ INJ 1,000 ML IV SCH ×4 (02:25→21:36)
[2017-01-17] MEDS: metroNIDAZOLE 500 MG INJ 100 ML IV SCH ×3 (05:15→21:36)
[2017-01-17 07:04] LABS: BASOPHIL % 0.1 % (0.0-2.0); EOSINOPHIL # 0.2 TH/MM3 (0-0.4); EOSINOPHIL % 1.1 % (0.0-4.0); HEMATOCRIT 40.7 % (39.0-51.0); HEMO FLAGS DIFF FINAL; LYMPH % 9.6 % (9.0-44.0); LYMPHOCYTE # 1.5 TH/MM3 (1.0-4.8); MEAN CELL VOLUME 93.6 FL (80.0-100.0); MEAN CORPUSCULAR HEMOGLOBIN 31.6 PG (27.0-34.0); MEAN CORPUSCULAR HGB CONC 33.7 % (32.0-36.0); MONO % 10.1 % (0.0-8.0); NEUT % 79.1 % (16.0-70.0); PLATELET COUNT 254 TH/MM3 (150-450); RED BLOOD COUNT 4.35 MIL/MM3 (4.50-5.90); RED CELL DISTRIBUTION WIDTH 13.5 % (11.6-17.2); WHITE BLOOD COUNT 15.2 TH/MM3 (4.0-11.0)
[2017-01-17 07:25] LABS: ALKALINE PHOSPHATASE 62 U/L (45-117); ALT (GPT) 10 U/L (12-78); ANION GAP 7 MEQ/L (5-15); AST (GOT) 9 U/L (15-37); BICARBONATE 26.4 MEQ/L (21.0-32.0); BLOOD UREA NITROGEN 6 MG/DL (7-18); CHLORIDE 104 MEQ/L (98-107); GLOMERULAR FILTRATION RATE 96 ML/MIN (>89); MAGNESIUM 2.3 MG/DL (1.5-2.5); POTASSIUM 3.6 MEQ/L (3.5-5.1); SODIUM (NA) 137 MEQ/L (136-145); TOTAL BILIRUBIN ADULT 0.4 MG/DL (0.2-1.0)
--- NOTE | 2017-01-17 07:40 | HHI.PR ---
Subjective Subjective Notes no new c/o large NG output overnight Objective Vitals/I&O Vital Signs Date Time Temp Pulse Resp B/P Pulse Ox O2 Delivery O2 Flow Rate FiO2 01/17/17 00:54 97.0 72 17 116/72 97 01/15/17 22:15 Nasal Cannula 2.00 Labs Laboratory Tests Test 01/17/17 05:53 White Blood Count 15.2 Red Blood Count 4.35 Hemoglobin 13.7 Hematocrit 40.7 Mean Corpuscular Volume 93.6 Mean Corpuscular Hemoglobin 31.6 Mean Corpuscular Hemoglobin 33.7 Concent Red Cell Distribution Width 13.5 Platelet Count 254 Mean Platelet Volume 10.1 Neutrophils (%) (Auto) 79.1 Lymphocytes (%) (Auto) 9.6 Monocytes (%) (Auto) 10.1 Eosinophils (%) (Auto) 1.1 Basophils (%) (Auto) 0.1 Neutrophils # (Auto) 12.0 Lymphocytes # (Auto) 1.5 Monocytes # (Auto) 1.5 Eosinophils # (Auto) 0.2 Basophils # (Auto) 0.0 CBC Comment DIFF FINAL Differential Comment Sodium Level 137 Potassium Level 3.6 Chloride Level 104 Carbon Dioxide Level 26.4 Anion Gap 7 Blood Urea Nitrogen 6 Creatinine 0.84 Estimat Glomerular Filtration 96 Rate Random Glucose 100 Calcium Level 8.1 Phosphorus Level 2.0 Magnesium Level 2.3 Total Bilirubin 0.4 Aspartate Amino Transf 9 (AST/SGOT) Alanine Aminotransferase 10 (ALT/SGPT) Alkaline Phosphatase 62 Total Protein 5.7 Albumin 2.1 Date/Time Procedure Status Source Growth 01/15/17 12:20 Gram Stain - Final Resulted Abscess Abdomen 01/15/17 12:20 Wound Culture - Preliminary Resulted Gram Negative [place] 01/15/17 12:20 Fungal Smear - Final Resulted Abscess Abdomen NO FUNGAL ELEMENTS SEEN. 01/15/17 12:20 Fungal Culture Resulted Abscess Abdomen Pending 01/15/17 12:20 Acid Fast Stain - Final Resulted Abscess Abdomen NO ACID FAST BACILLI SEEN 01/15/17 12:20 Mycobacterial Culture Resulted Abscess Abdomen Pending Cardiovascular: Regular Lungs: Clear Abdomen: Non-distended Extremities: No edema, Perfused, SCD's on Narrative Exam rlq tenderness A/P Assessment and Plan 51yo male s/p complicated appendicitis, stable. still with ileus, leukocytosis, will likely need repeat CT scan next week, continue abx NG tube, may need TPN if cannot tolerate PO Mansoor Arriaza MD Jan 17, 2017 07:40
[2017-01-17 08:00] VITALS: BP 130/75; PULSE 76; RESP 17; TEMP 96.1; O2SAT 93
[2017-01-17] MEDS: SODIUM CHLORIDE 0.9% FLUSH 10 ML FLUSH IV FLUSH SCH ×2 (08:33→20:18)
[2017-01-17] MEDS: CIPROFLOXACIN 400 MG PREMIX 200 ML IV SCH ×2 (08:33→20:17)
[2017-01-17] MEDS: PANTOPRAZOLE SODIUM 40 MG VIAL IV PUSH SCH (08:33)
[2017-01-17] MEDS: BUDESONIDE-FORMOTEROL 80/4.5 MCG INHALER INH SCH ×2 (08:38→20:18)
[2017-01-17] MEDS ORDERED: SODIUM PHOSPHATE INJ 15 MMOL in SODIUM CHLORIDE 0.9% INJ 150 ML IV ONE (10:00)
[2017-01-17 12:00] VITALS: BP 102/64; PULSE 80; RESP 17; TEMP 96.8; O2SAT 94
[2017-01-17] MEDS: ENOXAPARIN SODIUM 40 MG/0.4 ML SYRINGE SQ SCH (14:08)
[2017-01-17] MEDS: MORPHINE SULFATE 4 MG/ML INJ IV PRN (17:00)
--- NOTE | 2017-01-17 18:14 | HHI.PR ---
Subjective Remarks Deferred entry - patient seen at 12:45 pm vital signs stable wbc slightly elevated compared to prior day patient states abdominal pain is improving denies nausea Had large ng tube output last night denies fevers/chills Objective Vitals Vital Signs Date Time Temp Pulse Resp B/P Pulse Ox O2 Delivery O2 Flow Rate FiO2 01/17/17 12:00 96.8 80 17 102/64 94 01/17/17 08:00 96.1 76 17 130/75 93 01/17/17 00:54 97.0 72 17 116/72 97 01/16/17 20:00 98.7 74 17 124/75 94 I/O 01/16/17 01/16/17 01/16/17 01/17/17 01/17/17 01/17/17 07:00 15:00 23:00 07:00 15:00 23:00 Intake Total 707 ml 1182 ml 2760 ml Output Total 1565 ml 830 ml 1450 ml 510 ml Balance 707 ml -1565 ml 352 ml -1450 ml 2250 ml Intake Oral 0 ml IV Total 707 ml 1182 ml 2760 ml Output Urine Total 1350 ml 400 ml 950 ml 350 ml Gastric Drainage Total 125 ml 200 ml 450 ml 100 ml Drainage Total 90 ml 230 ml 50 ml 60 ml # Bowel Movements 0 0 Result Diagram: 01/17/17 0553 01/17/17 0553 Imaging Last Impressions Abdomen/Pelvis CT 01/15/17 0000 Signed Impressions: Service Date/Time: December 09:06 - CONCLUSION: 1. Interval increase in the size of the abscess in the upper pelvis. There is surrounding inflammatory change. 2. Findings consistent with a small bowel obstruction with transition point in the pelvis. The distal small bowel is decompressed. Several loops are slightly more prominent. There is no free air. 3. Interval placement of a nasogastric tube with the tip in the distal stomach or pylorus. Valentino Davis MD Abdomen X-Ray 01/15/17 0000 Signed Impressions: Service Date/Time: December 04:36 - CONCLUSION: Mild improvement in the bowel gas pattern compared to the prior study. There continue to be multiple dilated loops of small bowel mid abdomen. Timbo He MD Consultation 01/12/17 0000 Signed Impressions: Service Date/Time: Thursday, January 12, 2017 00:00 - CONCLUSION: Abscess seen centrally is not amenable to percutaneous CT-guided drainage. Juan Pablo Pearl MD Objective Remarks GENERAL: This is a well-nourished, well-developed patient, in no acute distress. SKIN: No rashes, ecchymoses or lesions. Cool and dry. HEAD: Atraumatic. Normocephalic. ENT: Nose without bleeding, purulent drainage or septal hematoma. Airway patent. NGT in place NECK: Trachea midline. No JVD or lymphadenopathy. CARDIOVASCULAR: Regular rate and rhythm without murmurs, gallops, or rubs. RESPIRATORY: Clear to auscultation. Breath sounds equal bilaterally. No wheezes , rales, or rhonchi. GASTROINTESTINAL: Abdomen soft, mildly tender with palpitation, moderately distended. Bowel sounds absent. MUSCULOSKELETAL: Extremities without clubbing, cyanosis, or edema. No calf tenderness. NEUROLOGICAL: Awake and alert. Motor and sensory grossly within normal limits. Five out of 5 muscle strength in all muscle groups. Normal speech. Procedures Diagnostic laparoscopy, Laparoscopic appendectomy on 01/15/2017 Medications and IVs Current Medications Medications (Trade) Dose Ordered Sig/Cleve Route Start Time Stop Time Status Last Admin (NS Flush) 2 ml UNSCH PRN IV FLUSH 01/11/17 22:45 (NS Flush) 2 ml BID IV FLUSH 01/12/17 09:00 01/17/17 08:33 (Tylenol) 650 mg Q4H PRN PO 01/11/17 22:45 (Zofran Inj) 4 mg Q6H PRN IVP 01/11/17 22:45 01/16/17 20:02 (Tylenol) 650 mg Q6H PRN PO 01/11/17 22:45 (Morphine Inj) 2 mg Q1H PRN IV 01/11/17 22:45 01/16/17 21:05 (Narcan Inj) 0.4 mg UNSCH PRN IV 01/11/17 22:45 (Protonix Inj) 40 mg Q24H IV PUSH 01/12/17 09:00 01/17/17 08:33 (Chloraseptic [place]) 2 spray Q2H PRN OROPHARYNG 01/12/17 00:30 01/12/17 05:28 Budesonide/ Formoterol Fumarate 2 puff 2 puff BID INH 01/12/17 09:00 01/17/17 08:38 Ciprofloxacin/ Dextrose 200 ml @ 200 mls/hr Q12HR IV 01/12/17 21:00 01/17/17 08:33 Metronidazole 100 ml @ 100 mls/hr Q8HR IV 01/13/17 01:00 01/17/17 14:08 (D5-1/2 NS + KCl 20 Meq Inj) 1,000 ml @ 125 mls/hr Q8H IV 01/13/17 10:00 01/17/17 14:09 (Lovenox Inj) 40 mg Q24H SQ 01/13/17 14:00 01/17/17 14:08 Urinary Catheter: No Vascular Central Line Catheter: No A/P Problem List: (1) Sepsis ICD Code: A41.9 Status: Acute Plan: Present on admission. Patient been treated with IV antibiotics. Currently on IV ciprofloxacin and IV Flagyl. Blood cultures no growth to date. Continue IV fluids WBC persistently elevated - consult infectious disease (2) Intestinal diverticular abscess ICD Code: K63.0 Status: Acute Plan: CT abdomen and pelvis showed some small bowel obstruction with a transition point in the lower midline abdomen with some induration of the fat about what appears to be a thin walled abscess, possibly related to mid sigmoid diverticulitis. Interventional radiology and as per documentation not amenable to percutaneous CT guided drainage. 01/15 Likely abscess due to perforated appendix. Patient is sp diagnostic laparoscopy with appendectomy. Management as per surgery. Continue Iv antibiotics as per ID. (3) Small bowel obstruction ICD Code: K56.69 Status: Acute Plan: General surgery consulted on following. GS initially recommended medical mangement, patient is sp diagnostic laparoscopy with appendectomy. Continue NG tube and IV fluids. Continue to follow general surgery recommendations. Continue to keep NPO. (4) COPD (chronic obstructive pulmonary disease) ICD Code: J44.9 Status: Chronic Plan: Seems to be stable. Continue DuoNeb's as needed. (5) Asthma ICD Code: J45.909 Status: Chronic Plan: As above. (6) Leukocytosis ICD Code: D72.829 Status: Acute Plan: Likely secondary to sepsis. WBC trending down. Continue to monitor CBC with differential. (7) Intra-abdominal abscess ICD Code: K65.1 Status: Acute Plan: Due to diverticular disease vs perforated appendicitis. Sp laparoscopy and drainage/appendectomy by GS Continue IV antibiotics, npo, Iv fluids, pain control, NG tube (8) Ileus ICD Code: K56.7 Status: Acute Plan: Continue NPO, IV Fluids, Iv antibiotics (9) Hypophosphatemia ICD Code: E83.39 Status: Acute Plan: Due to nutritional deficiency. Replace with IV Sodium phosphate and continue to monitor. Assessment and Plan GI prophylaxis: Continue PPI. DVT plexus: Continue Lovenox subcutaneously. Discharge Planning Continue to monitor in the medical floor. Problem Qualifiers (1) Sepsis: Qualified Code: A41.9 - Sepsis, due to unspecified organism (2) COPD (chronic obstructive pulmonary disease): Qualified Code: J42 - Chronic bronchitis, unspecified chronic bronchitis type (3) Leukocytosis: Qualified Code: D72.829 - Leukocytosis, unspecified type Antonio Plummer MD Jan 17, 2017 18:14
[2017-01-17 20:00] VITALS: BP 111/71; PULSE 79; RESP 18; TEMP 98.2; O2SAT 97
[2017-01-17] MEDS: ONDANSETRON HCL 4 MG/2 ML VIAL IVP PRN (20:25)
[2017-01-18] VITALS: BP 126/69; PULSE 79; RESP 18; TEMP 98.3; O2SAT 98
[2017-01-18] MEDS: metroNIDAZOLE 500 MG INJ 100 ML IV SCH ×3 (05:07→23:12)
[2017-01-18 05:43] LABS: BASOPHIL % 0.1 % (0.0-2.0); EOSINOPHIL # 0.2 TH/MM3 (0-0.4); EOSINOPHIL % 1.2 % (0.0-4.0); LYMPH % 10.7 % (9.0-44.0); LYMPHOCYTE # 1.7 TH/MM3 (1.0-4.8); MEAN CELL VOLUME 94.2 FL (80.0-100.0); MEAN CORPUSCULAR HGB CONC 32.9 % (32.0-36.0); MONO % 10.7 % (0.0-8.0); NEUT % 77.3 % (16.0-70.0); PLATELET COUNT 306 TH/MM3 (150-450); RED BLOOD COUNT 4.36 MIL/MM3 (4.50-5.90); RED CELL DISTRIBUTION WIDTH 13.7 % (11.6-17.2); WHITE BLOOD COUNT 15.4 TH/MM3 (4.0-11.0)
[2017-01-18 05:53] LABS: HEMO FLAGS AUTO DIFF
[2017-01-18 05:57] LABS: ALKALINE PHOSPHATASE 62 U/L (45-117); ALT (GPT) 11 U/L (12-78); ANION GAP 8 MEQ/L (5-15); AST (GOT) 13 U/L (15-37); BICARBONATE 23.9 MEQ/L (21.0-32.0); BLOOD UREA NITROGEN 6 MG/DL (7-18); CHLORIDE 105 MEQ/L (98-107); GLOMERULAR FILTRATION RATE 100 ML/MIN (>89); POTASSIUM 3.9 MEQ/L (3.5-5.1); SODIUM (NA) 137 MEQ/L (136-145); TOTAL BILIRUBIN ADULT 0.3 MG/DL (0.2-1.0)
--- NOTE | 2017-01-18 07:41 | MP ---
cc: LYUBOV SERRANO MD DATE OF SURGERY: 01/15/2017 PREOPERATIVE DIAGNOSIS Intra-abdominal abscess, possible ruptured appendicitis, possible perforated diverticulitis. POSTOPERATIVE DIAGNOSIS Intra-abdominal abscess, possible ruptured appendicitis, possible perforated diverticulitis. PROCEDURE PERFORMED 1. Diagnostic laparoscopy 2. Laparoscopic drainage of intra-abdominal abscess. 3. Laparoscopic appendectomy. SURGEON Dr. Lyubov Serrano [employer] See OR sheet ANESTHESIA GETA. IV FLUIDS 3000 cc ESTIMATED BLOOD LOSS 15 cc DRAINS 19 Lao Gianfranco drain placed in left mid pelvis by abscess. FINDINGS Indurated inflamed distal appendix, large purulent abscess, mid pelvis, left side. Irritated inflamed edematous small bowel with dilated proximal loops and small bowel obstruction. INDICATIONS The patient is a 51-year-old male who presented with complaints of abdominal pain. He came to the emergency department with WBC count of 28,000. CT scan showing 3.0 cm abscess, multiple diverticuli in colon. The patient was admitted. Also appendix noted to be near abscess fluid collection. The patient also noted to have significant bowel obstruction, likely result of intra-abdominal abscess process. NG tube placed. The patient remained on the floor. IV antibiotics, bowel rest, pain control. Repeat CT scan showed worsening larger abscess fluid collection. The patient was unable to undergo interventional radiology drainage. Therefore, decision was made for diagnostic laparoscopy, possible exploratory laparoscopy, possible bowel resection, possible drain, possible appropriately. Discussed with the patient in detail. SPECIMEN Appendix. Purulent fluid. WOUND CLASSIFICATION Contaminated. DETAILS OF PROCEDURE The patient was taken to the operating suite, placed in supine position. He was prepped and draped in the usual sterile fashion after induction of general endotracheal anesthesia. Brief time-out done stating correct patient, procedure, and surgical site. Attention first directed to the umbilicus, stab rachele incision made after injection of local anesthetic. Veress needle placed intra-abdominally confirmed with saline drop test. Abdomen insufflated to 50 mmHg pneumoperitoneum. A 5-mm scope obtained, cursory inspection no evidence of injury noted to be multiple dilated bowel loops. Two other 5 mm ports were placed left lower quadrant and suprapubic. The right lower quadrant was explored and followed to the mid pelvis. There is noted be a large significant amount of purulent material. This was suctioned, drained, and some of this was sent off for cultures. Irrigation used. The abdominal adhesions were mobilized and there was noted to be a significant abscess cavity down the pelvis. Dissection from right lower quadrant medially noted the appendiceal base was clean without infection. However, the distal tip was noted to be right in the vicinity of the abscess. There is no obvious perforation yash, however, the tip was very indurated, edematous and fibrosed. Therefore, appendix was mobilized. Small windows made at the base of the appendix. A 35 Endo-CHRISTIN stapler was used to transect the base of the appendix. Adhesions continued mobilized and the mesoappendix was transected as well. The appendix was placed in an EndoCatch bag and removed. Further exploration of the abdomen was noted be of transition point where there was proximal dilated small bowel loops and distal decompressed loops right where the inflammation had been from the abscess. On examination of portion of the colon and sigmoid, there was noted to be some diverticula but the colon, what was visible, looked relatively clean and healthy. After thorough suction irrigation and washout of the abscess, there was noted to be just minimal leaking from the small bowel. This was reinforced with a 2-0 Polysorb Endo Stitch. Next, 19-Lao Gianfranco drain was placed intra-abdominally brought through the suprapubic 5 mm port, secured with 2-0 nylon. The distal portion of the drain placed in the abscess cavity. Next the abdomen was desufflated, 0 Vicryl [id number] was used to close the fascia. 4-0 Monocryl was used for subcuticular suture to the skin. Sterile dressings placed including Mastisol, Steri-Strips. The patient tolerated the procedure well. All lap and instrument counts were correct at the end of the procedure. No intraoperative complication. The patient was extubated, taken to the PACU. MD JEZ Marie/TRACEY /4:38 PM /6:43 AM
[2017-01-18 08:00] VITALS: BP 135/76; PULSE 76; RESP 16; TEMP 98.2; O2SAT 93
[2017-01-18] MEDS: SODIUM CHLORIDE 0.9% FLUSH 10 ML FLUSH IV FLUSH SCH ×2 (08:00→21:00)
[2017-01-18] MEDS: CIPROFLOXACIN 400 MG PREMIX 200 ML IV SCH ×2 (08:04→22:08)
[2017-01-18] MEDS: D5-1/2 NS + KCL 20 MEQ INJ 1,000 ML IV SCH ×2 (08:04→17:48)
[2017-01-18] MEDS: PANTOPRAZOLE SODIUM 40 MG VIAL IV PUSH SCH (08:04)
[2017-01-18] MEDS: ONDANSETRON HCL 4 MG/2 ML VIAL IVP PRN (08:04)
[2017-01-18] MEDS: BUDESONIDE-FORMOTEROL 80/4.5 MCG INHALER INH SCH ×2 (08:13→22:09)
--- NOTE | 2017-01-18 09:31 | HHI.PR ---
Subjective Remarks Patient states passed gas one time still has abdominal pain c/o nausea denies fevers/chills still has large ng output vital signs stable states abdominal pain gets much worst when he gets up and ambulates ambulated yesterday. Objective Vitals Vital Signs Date Time Temp Pulse Resp B/P Pulse Ox O2 Delivery O2 Flow Rate FiO2 01/18/17 08:00 98.2 76 16 135/76 93 01/18/17 00:00 98.3 79 18 126/69 98 01/17/17 20:00 98.2 79 18 111/71 97 01/17/17 12:00 96.8 80 17 102/64 94 I/O 01/17/17 01/17/17 01/17/17 01/18/17 01/18/17 01/18/17 07:00 15:00 23:00 07:00 15:00 23:00 Intake Total 2760 ml 750 ml 1061 ml Output Total 1450 ml 510 ml 610 ml 1355 ml Balance -1450 ml 2250 ml 140 ml -294 ml Intake Oral 0 ml IV Total 2760 ml 750 ml 1061 ml Output Urine Total 950 ml 350 ml 600 ml 1025 ml Gastric Drainage Total 450 ml 100 ml 0 ml 300 ml Drainage Total 50 ml 60 ml 10 ml 30 ml # Bowel Movements 0 Result Diagram: 01/18/17 0336 01/18/17 0336 Imaging Last Impressions Abdomen/Pelvis CT 01/15/17 0000 Signed Impressions: Service Date/Time: December 09:06 - CONCLUSION: 1. Interval increase in the size of the abscess in the upper pelvis. There is surrounding inflammatory change. 2. Findings consistent with a small bowel obstruction with transition point in the pelvis. The distal small bowel is decompressed. Several loops are slightly more prominent. There is no free air. 3. Interval placement of a nasogastric tube with the tip in the distal stomach or pylorus. Valentino Davis MD Abdomen X-Ray 01/15/17 0000 Signed Impressions: Service Date/Time: December 04:36 - CONCLUSION: Mild improvement in the bowel gas pattern compared to the prior study. There continue to be multiple dilated loops of small bowel mid abdomen. Timbo He MD Consultation 01/12/17 0000 Signed Impressions: Service Date/Time: Thursday, January 12, 2017 00:00 - CONCLUSION: Abscess seen centrally is not amenable to percutaneous CT-guided drainage. Juan Pablo Pearl MD Objective Remarks GENERAL: This is a well-nourished, well-developed patient, in no acute distress. SKIN: No rashes, ecchymoses or lesions. Cool and dry. HEAD: Atraumatic. Normocephalic. ENT: Nose without bleeding, purulent drainage or septal hematoma. Airway patent. NGT in place NECK: Trachea midline. No JVD or lymphadenopathy. CARDIOVASCULAR: Regular rate and rhythm without murmurs, gallops, or rubs. RESPIRATORY: Clear to auscultation. Breath sounds equal bilaterally. No wheezes , rales, or rhonchi. GASTROINTESTINAL: Abdomen soft, mildly tender with palpitation, moderately distended. Bowel sounds absent. MUSCULOSKELETAL: Extremities without clubbing, cyanosis, or edema. No calf tenderness. NEUROLOGICAL: Awake and alert. Motor and sensory grossly within normal limits. Five out of 5 muscle strength in all muscle groups. Normal speech. Procedures Diagnostic laparoscopy, Laparoscopic appendectomy on 01/15/2017 Medications and IVs Current Medications Medications (Trade) Dose Ordered Sig/Cleve Route Start Time Stop Time Status Last Admin (NS Flush) 2 ml UNSCH PRN IV FLUSH 01/11/17 22:45 (NS Flush) 2 ml BID IV FLUSH 01/12/17 09:00 01/17/17 20:18 (Tylenol) 650 mg Q4H PRN PO 01/11/17 22:45 (Zofran Inj) 4 mg Q6H PRN IVP 01/11/17 22:45 01/18/17 08:04 (Tylenol) 650 mg Q6H PRN PO 01/11/17 22:45 (Morphine Inj) 2 mg Q1H PRN IV 01/11/17 22:45 01/17/17 17:00 (Narcan Inj) 0.4 mg UNSCH PRN IV 01/11/17 22:45 (Protonix Inj) 40 mg Q24H IV PUSH 01/12/17 09:00 01/18/17 08:04 (Chloraseptic [place]) 2 spray Q2H PRN OROPHARYNG 01/12/17 00:30 01/12/17 05:28 Budesonide/ Formoterol Fumarate 2 puff 2 puff BID INH 01/12/17 09:00 01/18/17 08:13 Ciprofloxacin/ Dextrose 200 ml @ 200 mls/hr Q12HR IV 01/12/17 21:00 01/18/17 08:04 Metronidazole 100 ml @ 100 mls/hr Q8HR IV 01/13/17 01:00 01/18/17 05:07 (D5-1/2 NS + KCl 20 Meq Inj) 1,000 ml @ 125 mls/hr Q8H IV 01/13/17 10:00 01/18/17 08:04 (Lovenox Inj) 40 mg Q24H SQ 01/13/17 14:00 01/17/17 14:08 Urinary Catheter: No Vascular Central Line Catheter: No A/P Problem List: (1) Sepsis ICD Code: A41.9 Status: Acute Plan: Present on admission. Patient been treated with IV antibiotics. Currently on IV ciprofloxacin and IV Flagyl. Blood cultures no growth to date. Continue IV fluids WBC persistently elevated - consult infectious disease (2) Intestinal diverticular abscess ICD Code: K63.0 Status: Acute Plan: CT abdomen and pelvis showed some small bowel obstruction with a transition point in the lower midline abdomen with some induration of the fat about what appears to be a thin walled abscess, possibly related to mid sigmoid diverticulitis. Interventional radiology and as per documentation not amenable to percutaneous CT guided drainage. 01/15 Likely abscess due to perforated appendix. Patient is sp diagnostic laparoscopy with appendectomy. Management as per surgery. Continue Iv antibiotics as per ID. (3) Small bowel obstruction ICD Code: K56.69 Status: Acute Plan: General surgery consulted on following. GS initially recommended medical mangement, patient is sp diagnostic laparoscopy with appendectomy. Continue NG tube and IV fluids. Continue to follow general surgery recommendations. Continue to keep NPO. (4) COPD (chronic obstructive pulmonary disease) ICD Code: J44.9 Status: Chronic Plan: Seems to be stable. Continue DuoNeb's as needed. (5) Asthma ICD Code: J45.909 Status: Chronic Plan: As above. (6) Leukocytosis ICD Code: D72.829 Status: Acute Plan: Likely secondary to sepsis. WBC stable at 15 k. Continue to monitor CBC with differential. (7) Intra-abdominal abscess ICD Code: K65.1 Status: Acute Plan: Due to diverticular disease vs perforated appendicitis. Sp laparoscopy and drainage/appendectomy by GS Continue IV antibiotics, npo, Iv fluids, pain control, NG tube (8) Ileus ICD Code: K56.7 Status: Acute Plan: Continue NPO, IV Fluids, Iv antibiotics (9) Hypophosphatemia ICD Code: E83.39 Status: Acute Plan: Due to nutritional deficiency. Replace with IV Sodium phosphate and continue to monitor. Assessment and Plan GI prophylaxis: Continue PPI. DVT plexus: Continue Lovenox subcutaneously. Discharge Planning Continue to monitor in the medical floor. Problem Qualifiers (1) Sepsis: Qualified Code: A41.9 - Sepsis, due to unspecified organism (2) COPD (chronic obstructive pulmonary disease): Qualified Code: J42 - Chronic bronchitis, unspecified chronic bronchitis type (3) Leukocytosis: Qualified Code: D72.829 - Leukocytosis, unspecified type Antonio Plummer MD Jan 18, 2017 09:31
[2017-01-18] MEDS: MORPHINE SULFATE 4 MG/ML INJ IV PRN ×3 (10:50→22:10)
--- NOTE | 2017-01-18 11:42 | HHI.PR ---
Subjective Subjective Notes No BM and just a little flatus. Uncomfortable still Objective Vitals/I&O Vital Signs Date Time Temp Pulse Resp B/P Pulse Ox O2 Delivery O2 Flow Rate FiO2 01/18/17 08:00 98.2 76 16 135/76 93 01/15/17 22:15 Nasal Cannula 2.00 Labs Laboratory Tests Test 01/18/17 03:36 White Blood Count 15.4 Red Blood Count 4.36 Hemoglobin 13.5 Hematocrit 41.0 Mean Corpuscular Volume 94.2 Mean Corpuscular Hemoglobin 31.0 Mean Corpuscular Hemoglobin 32.9 Concent Red Cell Distribution Width 13.7 Platelet Count 306 Mean Platelet Volume 10.5 Neutrophils (%) (Auto) 77.3 Lymphocytes (%) (Auto) 10.7 Monocytes (%) (Auto) 10.7 Eosinophils (%) (Auto) 1.2 Basophils (%) (Auto) 0.1 Neutrophils # (Auto) 12.0 Lymphocytes # (Auto) 1.7 Monocytes # (Auto) 1.6 Eosinophils # (Auto) 0.2 Basophils # (Auto) 0.0 CBC Comment AUTO DIFF Sodium Level 137 Potassium Level 3.9 Chloride Level 105 Carbon Dioxide Level 23.9 Anion Gap 8 Blood Urea Nitrogen 6 Creatinine 0.81 Estimat Glomerular Filtration 100 Rate Random Glucose 104 Calcium Level 8.0 Total Bilirubin 0.3 Aspartate Amino Transf 13 (AST/SGOT) Alanine Aminotransferase 11 (ALT/SGPT) Alkaline Phosphatase 62 Total Protein 5.7 Albumin 2.1 Date/Time Procedure Status Source Growth 01/15/17 12:20 Gram Stain - Final Complete Abscess Abdomen 01/15/17 12:20 Wound Culture - Final Complete Escherichia Coli 01/15/17 12:20 Fungal Smear - Final Resulted Abscess Abdomen NO FUNGAL ELEMENTS SEEN. 01/15/17 12:20 Fungal Culture Resulted Abscess Abdomen Pending 01/15/17 12:20 Acid Fast Stain - Final Resulted Abscess Abdomen NO ACID FAST BACILLI SEEN 01/15/17 12:20 Mycobacterial Culture Resulted Abscess Abdomen Pending Lungs: Clear Abdomen: Other (Distended, with moderate tenderness to palpation) Narrative Exam MEG output 120 ml yesterday; 30 ml so far today NG output 100 ml overnight A/P Assessment and Plan Assessment and Plan 51yo male s/p lap appy for complicated appendicitis, stable. No fevers WBC's 15.4 Path showed process likely external to appendix; inflammatory process may be related to diverticulits Plan: still with ileus, leukocytosis, will likely need repeat CT scan next week if no improvement, continue abx Keep NG tube for now Valentino Winter MD Jan 18, 2017 11:42
[2017-01-18 11:58] LABS: SCAN/DIFF AUTO DIFF CONFIRMED
[2017-01-18 12:00] VITALS: BP 129/79; PULSE 76; RESP 18; TEMP 97.1; O2SAT 94
[2017-01-18] MEDS: ENOXAPARIN SODIUM 40 MG/0.4 ML SYRINGE SQ SCH (13:58)
[2017-01-18 16:00] VITALS: BP 117/76; PULSE 77; RESP 17; TEMP 96.5; O2SAT 96
[2017-01-18 20:00] VITALS: BP 114/68; PULSE 73; RESP 18; TEMP 98.2; O2SAT 94
--- NOTE | 2017-01-18 23:23 | PD.ID.CON ---
History of Present Illness Service ID Consult Requested By Dr Adames Reason for Consult intraabdominal abscess related to perforated appendix, leukocytosis Primary Care Physician No Primary Care Physician Diagnoses: History of Present Illness 51yo male s/p lap appy for complicated appendicitis, He presente d 1 wk ago with 4 days of abd pain, nausea, vomiting and significaint leukocytosis of [address] from 01/15 showed Interval increase in the size of the abscess in the upper pelvis with surrounding inflammatory change and a small bowel obstruction with transition point in the pelvis. He underwent laparoscopic drainage of the abscess and laparoscopic appendctomy Path showed process likely external to appendix; inflammatory process may be related to diverticulits Co daiarrea earlier today Review of Systems Gastrointestinal: COMPLAINS OF: Abdominal pain, Diarrhea Except as stated in HPI: all other systems reviewed are Neg Past Family Social History Allergies: Coded Allergies: No Known Allergies (Unverified , 01/11/17) Past Medical History asthma COPD Past Surgical History bl LE ORIF Active Ordered Medications Medications where reviewed in EMR Antibiotics Include: cipro flagl Family History Non-Contributory. Social History No Tobacco. occ ETOH. occ THC Physical Exam Vital Signs Vital Signs Date Time Temp Pulse Resp B/P Pulse Ox O2 Delivery O2 Flow Rate FiO2 01/18/17 20:00 98.2 73 18 114/68 94 01/18/17 16:00 96.5 77 17 117/76 96 01/18/17 12:00 97.1 76 18 129/79 94 01/18/17 08:15 Room Air 01/18/17 08:00 98.2 76 16 135/76 93 01/18/17 00:00 98.3 79 18 126/69 98 Physical Exam CONSTITUTIONAL/GENERAL: This is an adequately nourished patient, in no apparent distress. TUBES/LINES/DRAINS: SKIN: No jaundice, rashes, or lesions. Skin temperature appropriate. Not diaphoretic. HEAD: Atraumatic. Normocephalic. EYES: Pupils equal and round and reactive. Extraocular motions intact. No scleral icterus. No injection or drainage. Fundi not examined. ENT: Hearing grossly normal. Nose without bleeding or purulent drainage. Oral mucosae without visible erythema, exudates, masses, or lesions. NG in place with reddish drainage NECK: Trachea midline. Supple, nontender. No palpable thyroid enlargement or nodularity. CARDIOVASCULAR: Regular rate and rhythm without murmurs, gallops, or rubs. No JVD. Peripheral pulses symmetric. RESPIRATORY/CHEST: Symmetric, unlabored respirations. Clear to auscultation. Breath sounds equal bilaterally. No wheezes, rales, or rhonchi. GASTROINTESTINAL: Abdomen soft, moderately tender, quite distended. Drain in place in inferior abd with serosag dc No hepato-splenomegaly, or palpable masses. No guarding. Bowel sounds markedly decreased GENITOURINARY: Without palpable bladder distension. MUSCULOSKELETAL: Extremities without clubbing, cyanosis, or edema. No joint tenderness or effusion noted. No calf tenderness. No mottling or clubbing. LYMPHATICS: No palpable cervical or supraclavicular adenopathy. NEUROLOGICAL: Awake and alert. Motor and sensory grossly within normal limits. Follows commands. Cognitively sharp. Moves all extremities. PSYCHIATRIC: No obvious anxiety/depression. no apparent hallucinations or other psychotic thought process. Laboratory Laboratory Tests Test 01/18/17 03:36 White Blood Count 15.4 Red Blood Count 4.36 Hemoglobin 13.5 Hematocrit 41.0 Mean Corpuscular Volume 94.2 Mean Corpuscular Hemoglobin 31.0 Mean Corpuscular Hemoglobin 32.9 Concent Red Cell Distribution Width 13.7 Platelet Count 306 Mean Platelet Volume 10.5 Neutrophils (%) (Auto) 77.3 Lymphocytes (%) (Auto) 10.7 Monocytes (%) (Auto) 10.7 Eosinophils (%) (Auto) 1.2 Basophils (%) (Auto) 0.1 Neutrophils # (Auto) 12.0 Lymphocytes # (Auto) 1.7 Monocytes # (Auto) 1.6 Eosinophils # (Auto) 0.2 Basophils # (Auto) 0.0 CBC Comment AUTO DIFF Differential Comment AUTO DIFF CONFIRMED Sodium Level 137 Potassium Level 3.9 Chloride Level 105 Carbon Dioxide Level 23.9 Anion Gap 8 Blood Urea Nitrogen 6 Creatinine 0.81 Estimat Glomerular Filtration 100 Rate Random Glucose 104 Calcium Level 8.0 Total Bilirubin 0.3 Aspartate Amino Transf 13 (AST/SGOT) Alanine Aminotransferase 11 (ALT/SGPT) Alkaline Phosphatase 62 Total Protein 5.7 Albumin 2.1 Date/Time Procedure Status Source Growth 01/15/17 12:20 Gram Stain - Final Complete Abscess Abdomen 01/15/17 12:20 Wound Culture - Final Complete Escherichia Coli 01/15/17 12:20 Fungal Smear - Final Resulted Abscess Abdomen NO FUNGAL ELEMENTS SEEN. 01/15/17 12:20 Fungal Culture Resulted Abscess Abdomen Pending 01/15/17 12:20 Acid Fast Stain - Final Resulted Abscess Abdomen NO ACID FAST BACILLI SEEN 01/15/17 12:20 Mycobacterial Culture Resulted Abscess Abdomen Pending Result Diagram: 01/18/17 0336 01/18/17 0336 Imaging Last Impressions Abdomen/Pelvis CT 01/15/17 0000 Signed Impressions: Service Date/Time: December 09:06 - CONCLUSION: 1. Interval increase in the size of the abscess in the upper pelvis. There is surrounding inflammatory change. 2. Findings consistent with a small bowel obstruction with transition point in the pelvis. The distal small bowel is decompressed. Several loops are slightly more prominent. There is no free air. 3. Interval placement of a nasogastric tube with the tip in the distal stomach or pylorus. Valentino Davis MD Abdomen X-Ray 01/15/17 0000 Signed Impressions: Service Date/Time: December 04:36 - CONCLUSION: Mild improvement in the bowel gas pattern compared to the prior study. There continue to be multiple dilated loops of small bowel mid abdomen. Timbo He MD Consultation 01/12/17 0000 Signed Impressions: Service Date/Time: Thursday, January 12, 2017 00:00 - CONCLUSION: Abscess seen centrally is not amenable to percutaneous CT-guided drainage. Juan Pablo Pearl MD Assessment and Plan Assessment and Plan Perforated diverticula, intraabdominal abscess - growing vo S E.coli Diarrhea still NPO Persistent leukocytosis - cont cipro, flagyl IV monitor clincially - will chk stool for c.diff Bebe Hannah MD Jan 18, 2017 23:23
[2017-01-19 00:10] VITALS: BP 118/72; PULSE 68; RESP 17; TEMP 96; O2SAT 96
[2017-01-19] MEDS: D5-1/2 NS + KCL 20 MEQ INJ 1,000 ML IV SCH ×3 (03:41→11:23)
[2017-01-19] MEDS: ZOLPIDEM TARTRATE 10 MG TAB PO PRN (03:42)
[2017-01-19] MEDS: metroNIDAZOLE 500 MG INJ 100 ML IV SCH ×3 (05:52→23:13)
[2017-01-19 08:00] VITALS: BP 119/77; PULSE 72; RESP 17; TEMP 97.6; O2SAT 96
--- NOTE | 2017-01-19 08:36 | HHI.PR ---
Subjective Remarks in no acute distress. NG tube in place. abdominal pain is minimal to mild. no nausea,vomiting. afebrile. Objective Vitals Vital Signs Date Time Temp Pulse Resp B/P Pulse Ox O2 Delivery O2 Flow Rate FiO2 01/19/17 00:10 96.0 68 17 118/72 96 01/18/17 20:00 98.2 73 18 114/68 94 01/18/17 16:00 96.5 77 17 117/76 96 01/18/17 12:00 97.1 76 18 129/79 94 I/O 01/18/17 01/18/17 01/18/17 01/19/17 01/19/17 01/19/17 07:00 15:00 23:00 07:00 15:00 23:00 Intake Total 1061 ml 949 ml 1320 ml 814 ml Output Total 1355 ml 190 ml 1350 ml 960 ml Balance -294 ml 759 ml -30 ml -146 ml Intake Oral 0 ml 118 ml IV Total 1061 ml 949 ml 1202 ml 814 ml Output Urine Total 1025 ml 1050 ml 600 ml Gastric Drainage Total 300 ml 150 ml 300 ml 300 ml Drainage Total 30 ml 40 ml 60 ml # Voids 2 # Bowel Movements 1 Result Diagram: 01/18/17 0336 01/18/17 0336 Imaging Last Impressions Abdomen/Pelvis CT 01/15/17 0000 Signed Impressions: Service Date/Time: December 09:06 - CONCLUSION: 1. Interval increase in the size of the abscess in the upper pelvis. There is surrounding inflammatory change. 2. Findings consistent with a small bowel obstruction with transition point in the pelvis. The distal small bowel is decompressed. Several loops are slightly more prominent. There is no free air. 3. Interval placement of a nasogastric tube with the tip in the distal stomach or pylorus. Valentino Davis MD Abdomen X-Ray 01/15/17 0000 Signed Impressions: Service Date/Time: December 04:36 - CONCLUSION: Mild improvement in the bowel gas pattern compared to the prior study. There continue to be multiple dilated loops of small bowel mid abdomen. Timbo He MD Consultation 01/12/17 0000 Signed Impressions: Service Date/Time: Thursday, January 12, 2017 00:00 - CONCLUSION: Abscess seen centrally is not amenable to percutaneous CT-guided drainage. Juan Pablo Pearl MD Objective Remarks GENERAL: This is a well-nourished, well-developed patient, in no apparent distress with NG tube in place. CARDIOVASCULAR: Regular rate and regular rhythm without murmurs, gallops, or rubs. RESPIRATORY: Clear to auscultation. Breath sounds equal bilaterally. No wheezes , rales, or rhonchi. GASTROINTESTINAL: Abdomen soft, non-tender, nondistended. drain in place. MUSCULOSKELETAL: Extremities without clubbing, cyanosis, or edema. NEURO: Alert & Oriented x4 to person, place, time, situation. Moves all ext x4 Procedures Diagnostic laparoscopy, Laparoscopic appendectomy on 01/15/2017 Medications and IVs Current Medications Sodium Chloride (NS Flush) 2 ml UNSCH PRN IV FLUSH FLUSH AFTER USING IV ACCESS ; Start 01/11/17 at 17:45; Stop 01/11/17 at 22:42; Status DC Iohexol 90 ml 90 ml STK-MED ONCE IV Last administered on 01/11/17 18:54; Start 01/11/17 at 18:54; Stop 01/11/17 at 18:55; Status DC Ampicillin Sodium/ Sulbactam Sodium/ Sodium Chloride (Unasyn Inj/NS Inj) 100 ml @ 200 mls/hr ONCE ONCE IV Last administered on 01/11/17 19:51; Start at 19:30; Stop 01/11/17 at 19:59; Status DC Lorazepam (Ativan Inj) 1 mg ONCE ONCE IV PUSH Last administered on 01/11/17 21:15; Start 01/11/17 at 21:15; Stop 01/11/17 at 21:16; Status DC Lidocaine HCl 1 applic 1 applic ONCE ONCE TOPICAL Last administered on 21:15; Start 01/11/17 at 21:15; Stop 01/11/17 at 21:16; Status DC Sodium Chloride 1,000 ml @ 999 mls/hr BOLUS ONCE IV Last administered on 01/11 21:30; Start 01/11/17 at 21:30; Stop 01/11/17 at 22:32; Status DC Sodium Chloride (NS 1000 ml Inj) 1,000 ml @ 125 mls/hr Q8H IV Last administered on 01/13/17 07:43; Start 01/11/17 at 22:34; Stop 01/13/17 at 09:58 ; Status DC Sodium Chloride (NS Flush) 2 ml UNSCH PRN IV FLUSH FLUSH AFTER USING IV ACCESS ; Start 01/11/17 at 22:45 Sodium Chloride (NS Flush) 2 ml BID IV FLUSH Last administered on 01/17/17 20: 18; Start 01/12/17 at 09:00 Acetaminophen (Tylenol) 650 mg Q4H PRN PO TEMP > 100.4; Start 01/11/17 at 22:45 Ondansetron HCl (Zofran Inj) 4 mg Q6H PRN IVP NAUSEA OR VOMITING Last administered on 01/18/17 08:04; Start 01/11/17 at 22:45 Acetaminophen (Tylenol) 650 mg Q6H PRN PO PAIN SCALE 1 TO 2; Start 01/11/17 at 22:45 Morphine Sulfate (Morphine Inj) 2 mg Q1H PRN IV PAIN SCALE 1-10 (INTRACTABLE) Last administered on 01/18/17 22:10; Start 01/11/17 at 22:45 Naloxone HCl (Narcan Inj) 0.4 mg UNSCH PRN IV SEE LABEL COMMENTS; Start at 22:45 Pantoprazole Sodium (Protonix Inj) 40 mg Q24H IV PUSH Last administered on 01/18 08:04; Start 01/12/17 at 09:00 Albuterol/ Ipratropium (Duoneb Neb) 1 ampule Q2HR NEB PRN NEB SOB/WHEEZING; Start 01/11/17 at 22:45 Phenol (Chloraseptic [place]) 2 spray Q2H PRN OROPHARYNG ngt pain Last administered on 01/12/17 05:28; Start 01/12/17 at 00:30 Patient Own Medication Advair 100-50 mcg one p... BID INH ; Start 01/12/17 at 00 :45; Status UNV Pneumococcal Polyvalent Vaccine (Pneumovax-23 Inj) 25 mcg ONCE ONCE IM ; Start 01/12/17 at 09:00; Stop 01/12/17 at 09:01; Status DC Influenza Virus Vaccine (Flu (Quadrivalent) Vaccine Inj) 0.5 ml ONCE ONCE IM ; Start 01/12/17 at 09:00; Stop 01/12/17 at 09:01; Status DC Budesonide/ Formoterol Fumarate 2 puff 2 puff BID INH Last administered on 01/18 22:09; Start 01/12/17 at 09:00 Ciprofloxacin/ Dextrose 200 ml @ 200 mls/hr Q12HR IV Last administered on 01/18 22:08; Start 01/12/17 at 21:00 Metronidazole (Flagyl 500 Mg Inj) 100 ml @ 100 mls/hr Q8HR IV Last administered on 01/12/17 17:44; Start 01/12/17 at 17:00; Stop 01/12/17 at 22:25 ; Status DC Diphenhydramine HCl 25 mg 25 mg ONCE ONCE IV PUSH Last administered on 22:04; Start 01/12/17 at 21:00; Stop 01/12/17 at 21:01; Status DC Metronidazole 100 ml @ 100 mls/hr Q8HR IV Last administered on 01/19/17 05:52 ; Start 01/13/17 at 01:00 Potassium Chloride/Dextrose/ Sod Cl (D5-1/2 NS + KCl 20 Meq Inj) 1,000 ml @ 125 mls/hr Q8H IV Last administered on 01/19/17 03:41; Start 01/13/17 at 10:00 Enoxaparin Sodium (Lovenox Inj) 40 mg Q24H SQ Last administered on 01/18/17 13 :58; Start 01/13/17 at 14:00 Diphenhydramine HCl (Benadryl Inj) 25 mg ONCE ONCE IV PUSH Last administered on 01/13/17 22:29; Start 01/13/17 at 20:00; Stop 01/13/17 at 20:01; Status DC Potassium Chloride 30 meq 30 meq ONCE ONCE PO ; Start 01/14/17 at 09:45; Stop 01/14/17 at 09:45; Status DC Potassium Chloride (KCl 20 Meq Premix Inj) 100 ml @ 50 mls/hr Q2H IV Last administered on 01/14/17 14:22; Start 01/14/17 at 10:00; Stop 01/14/17 at 13:59 ; Status DC Iohexol (Omnipaque 350 Inj) 95 ml STK-MED ONCE IV Last administered on 09:18; Start 01/15/17 at 09:18; Stop 01/15/17 at 09:19; Status DC Midazolam HCl (Versed Inj) 2 mg STK-MED ONCE .ROUTE Last administered on 11:27; Start 01/15/17 at 11:23; Stop 01/15/17 at 11:24; Status DC Famotidine (Pepcid Inj) 20 mg STK-MED ONCE .ROUTE Last administered on 11:25; Start 01/15/17 at 11:24; Stop 01/15/17 at 11:25; Status DC Bupivacaine HCl/ Epinephrine Bitart (Marcaine-Epi Pf 0.25% Inj) 30 ml STK-MED ONCE .ROUTE Last administered on 01/15/17 12:09; Start 01/15/17 at 11:42; Stop 01/15/17 at 11:43; Status DC Fentanyl Citrate (fentaNYL INJ) 250 mcg STK-MED ONCE .ROUTE ; Start 01/15/17 at 14:03; Stop 01/15/17 at 14:04; Status DC Fentanyl Citrate (fentaNYL INJ) 100 mcg STK-MED ONCE .ROUTE ; Start 01/15/17 at 14:03; Stop 01/15/17 at 14:04; Status DC Miscellaneous Information ALL NURSING DEPARTME... UNSCH PRN .XX SEE LABEL COMMENTS; Start 01/15/17 at 13:44; Stop 01/16/17 at 13:43; Status DC Magnesium Sulfate/ Dextrose 100 ml @ 100 mls/hr Q1H IV Last administered on 17:28; Start 01/16/17 at 17:15; Stop 01/16/17 at 18:31; Status DC Sodium Phosphate 15 mmol/Sodium Chloride 155 ml @ 38.75 mls/ hr ONCE ONCE IV Last administered on 01/16/17 18:16; Start 01/16/17 at 18:00; Stop 01/16/17 at 21:59; Status DC Magnesium Sulfate/ Dextrose 100 ml @ 100 mls/hr Q1H IV Last administered on 20:10; Start 01/16/17 at 21:00; Stop 01/16/17 at 21:59; Status DC Sodium Phosphate/ Sodium Chloride (Sodium Phosphate Inj/NS Inj) 155 ml @ 38.75 mls/ hr ONCE ONCE IV Last administered on 01/17/17 11:35; Start 01/17/17 at 10:00; Stop 01/17/17 at 13:59; Status DC Zolpidem Tartrate (Ambien) 10 mg HS PRN PO INSOMNIA Last administered on 03:42; Start 01/18/17 at 21:00 A/P Assessment and Plan A/P (1) Sepsis- due to intraabdominal abscess s/p laparoscopic drainage of the abscess- Blood cultures no growth to date/ fluid culture with e-coli continue IV ciprofloxacin and IV Flagyl. continue with pain control. ID and surgery following. (2) Small bowel obstruction General surgery consulted . GS initially recommended medical management, patient is sp diagnostic laparoscopy with appendectomy. Continue NG tube and IV fluids. Continue to follow general surgery recommendations. (3) COPD (chronic obstructive pulmonary disease)/ asthma Seems to be stable. Continue DuoNeb's as needed. (4) Hypophosphatemia Due to nutritional deficiency. replaced. DVT prophylaxis with Lovenox. Annie Franco MD January 19, 2017 08:36
[2017-01-19] MEDS: CIPROFLOXACIN 400 MG PREMIX 200 ML IV SCH ×2 (08:50→21:35)
[2017-01-19] MEDS: PANTOPRAZOLE SODIUM 40 MG VIAL IV PUSH SCH (08:50)
[2017-01-19] MEDS: BUDESONIDE-FORMOTEROL 80/4.5 MCG INHALER INH SCH ×2 (08:50→21:33)
[2017-01-19] MEDS: SODIUM CHLORIDE 0.9% FLUSH 10 ML FLUSH IV FLUSH SCH ×2 (08:51→21:35)
[2017-01-19] MEDS: MORPHINE SULFATE 4 MG/ML INJ IV PRN (11:22)
[2017-01-19 12:00] VITALS: BP 126/86; PULSE 100; RESP 18; TEMP 96; O2SAT 93
[2017-01-19 13:25] LABS: AUTOMATED NEUTROPHIL # 13.1 TH/MM3 (1.8-7.7); BASOPHIL % 0.3 % (0.0-2.0); EOSINOPHIL # 0.2 TH/MM3 (0-0.4); EOSINOPHIL % 1.1 % (0.0-4.0); HEMATOCRIT 41.8 % (39.0-51.0); HEMO FLAGS DIFF FINAL; LYMPHOCYTE # 1.3 TH/MM3 (1.0-4.8); MEAN CELL VOLUME 93.2 FL (80.0-100.0); MEAN CORPUSCULAR HEMOGLOBIN 31.8 PG (27.0-34.0); MEAN CORPUSCULAR HGB CONC 34.1 % (32.0-36.0); MONO % 7.1 % (0.0-8.0); NEUT % 83.5 % (16.0-70.0); PLATELET COUNT 327 TH/MM3 (150-450); RED BLOOD COUNT 4.49 MIL/MM3 (4.50-5.90); RED CELL DISTRIBUTION WIDTH 13.7 % (11.6-17.2); WHITE BLOOD COUNT 15.7 TH/MM3 (4.0-11.0)
[2017-01-19 13:52] LABS: BICARBONATE 23.2 MEQ/L (21.0-32.0)
[2017-01-19] MEDS: ENOXAPARIN SODIUM 40 MG/0.4 ML SYRINGE SQ SCH (14:58)
[2017-01-19 16:00] VITALS: BP 113/67; PULSE 75; RESP 18; TEMP 98.4; O2SAT 92
--- NOTE | 2017-01-19 17:06 | RADRPT ---
EXAM DATE/TIME: 01/19/2017 13:55 [facility] COMPARISON: CT ABDOMEN & PELVIS W CONTRAST, January 15, 2017, 9:06. INDICATIONS : Obstruction. MEDICAL HISTORY : None. SURGICAL HISTORY : Appendectomy. ENCOUNTER: Subsequent ACUITY: 1 week PAIN SCORE: 5/10 LOCATION: abdomen. FINDINGS: Nasogastric tube descends into the stomach. A drainage catheter some type overlies the right midabdom en. There is mild dilatation of multiple small bowel loops over the lower abdomen. CONCLUSION: Surgical drain present. NG tube in satisfactory position. Persistent gaseous dilatation of bowel whic h appears somewhat improved Abdiaziz Murphy MD on January 19, 2017 at 17:03 Board Certified Radiologist. This report was verified electronically.
[2017-01-19 20:16] VITALS: BP 129/76; PULSE 88; RESP 17; TEMP 98.1; O2SAT 95
[2017-01-19] MEDS: ONDANSETRON HCL 4 MG/2 ML VIAL IVP PRN (21:35)
--- NOTE | 2017-01-19 22:02 | HHI.PR ---
Subjective Subjective Notes no acute issues, ng fell out last night and replaced, diarrhea a few days ago, wbc elevated Objective Vitals/I&O Vital Signs Date Time Temp Pulse Resp B/P Pulse Ox O2 Delivery O2 Flow Rate FiO2 01/19/17 20:16 98.1 88 17 129/76 95 01/18/17 08:15 Room Air 01/15/17 22:15 2.00 Labs Laboratory Tests Test 01/19/17 12:40 White Blood Count 15.7 Red Blood Count 4.49 Hemoglobin 14.3 Hematocrit 41.8 Mean Corpuscular Volume 93.2 Mean Corpuscular Hemoglobin 31.8 Mean Corpuscular Hemoglobin 34.1 Concent Red Cell Distribution Width 13.7 Platelet Count 327 Mean Platelet Volume 9.9 Neutrophils (%) (Auto) 83.5 Lymphocytes (%) (Auto) 8.0 Monocytes (%) (Auto) 7.1 Eosinophils (%) (Auto) 1.1 Basophils (%) (Auto) 0.3 Neutrophils # (Auto) 13.1 Lymphocytes # (Auto) 1.3 Monocytes # (Auto) 1.1 Eosinophils # (Auto) 0.2 Basophils # (Auto) 0.0 CBC Comment DIFF FINAL Differential Comment Sodium Level 137 Potassium Level 4.0 Chloride Level 104 Carbon Dioxide Level 23.2 Anion Gap 10 Blood Urea Nitrogen 6 Creatinine 0.85 Estimat Glomerular Filtration 95 Rate Random Glucose 123 Calcium Level 8.8 Date/Time Procedure Status Source Growth 01/15/17 12:20 Gram Stain - Final Complete Abscess Abdomen 01/15/17 12:20 Wound Culture - Final Complete Escherichia Coli 01/15/17 12:20 Fungal Smear - Final Resulted Abscess Abdomen NO FUNGAL ELEMENTS SEEN. 01/15/17 12:20 Fungal Culture Resulted Abscess Abdomen Pending 01/15/17 12:20 Acid Fast Stain - Final Resulted Abscess Abdomen NO ACID FAST BACILLI SEEN 01/15/17 12:20 Mycobacterial Culture Resulted Abscess Abdomen Pending Cardiovascular: Regular Lungs: Clear Abdomen: Other (soft distension, rodolfo serous) A/P Assessment and Plan perforated diverticulitis vs acute perforated appy SBO, IR unable to drain abscess s/p Dx lap appy, drainage of abscess PLAN d/c NG if axr shows improvement abd exams IV abx dvt ppx, ok for lovenox oob ice chips Jam Serrano MD January 19, 2017 22:02
[2017-01-20 00:08] VITALS: BP 111/72; PULSE 75; RESP 18; TEMP 97.9; O2SAT 96
[2017-01-20] MEDS: ZOLPIDEM TARTRATE 10 MG TAB PO PRN (00:33)
[2017-01-20] MEDS: metroNIDAZOLE 500 MG INJ 100 ML IV SCH ×3 (05:24→21:54)
[2017-01-20 06:09] LABS: AUTOMATED NEUTROPHIL # 12.2 TH/MM3 (1.8-7.7); BASOPHIL % 0.1 % (0.0-2.0); EOSINOPHIL # 0.3 TH/MM3 (0-0.4); EOSINOPHIL % 1.6 % (0.0-4.0); HEMATOCRIT 39.5 % (39.0-51.0); HEMO FLAGS DIFF FINAL; LYMPHOCYTE # 1.7 TH/MM3 (1.0-4.8); MEAN CELL VOLUME 92.6 FL (80.0-100.0); MEAN CORPUSCULAR HEMOGLOBIN 31.9 PG (27.0-34.0); MEAN CORPUSCULAR HGB CONC 34.5 % (32.0-36.0); MONO % 9.2 % (0.0-8.0); NEUT % 78.1 % (16.0-70.0); PLATELET COUNT 307 TH/MM3 (150-450); RED BLOOD COUNT 4.27 MIL/MM3 (4.50-5.90); RED CELL DISTRIBUTION WIDTH 13.3 % (11.6-17.2); WHITE BLOOD COUNT 15.6 TH/MM3 (4.0-11.0)
[2017-01-20] MEDS: MORPHINE SULFATE 4 MG/ML INJ IV PRN (06:35)
[2017-01-20] MEDS: D5-1/2 NS + KCL 20 MEQ INJ 1,000 ML IV SCH ×3 (06:35→21:53)
[2017-01-20] MEDS: ONDANSETRON HCL 4 MG/2 ML VIAL IVP PRN ×2 (06:35→21:54)
[2017-01-20 06:38] LABS: BICARBONATE 25.8 MEQ/L (21.0-32.0); POTASSIUM 3.8 MEQ/L (3.5-5.1)
[2017-01-20 08:00] VITALS: BP 123/75; PULSE 88; RESP 18; TEMP 97.7; O2SAT 95
--- NOTE | 2017-01-20 08:20 | HHI.PR ---
Subjective Remarks looks and feels better today. abdominal pain is better. no nausea or vomiting. no fever. Objective Vitals Vital Signs Date Time Temp Pulse Resp B/P Pulse Ox O2 Delivery O2 Flow Rate FiO2 01/20/17 00:08 97.9 75 18 111/72 96 01/19/17 21:50 Room Air 01/19/17 20:16 98.1 88 17 129/76 95 01/19/17 16:00 98.4 75 18 113/67 92 01/19/17 12:00 96.0 100 18 126/86 93 I/O 01/19/17 01/19/17 01/19/17 01/20/17 01/20/17 01/20/17 07:00 15:00 23:00 07:00 15:00 23:00 Intake Total 814 ml 860 ml 803 ml 1008 ml Output Total 960 ml 1160 ml 1120 ml 1020 ml Balance -146 ml -300 ml -317 ml -12 ml Intake Oral 0 ml IV Total 814 ml 860 ml 803 ml 1008 ml Output Urine Total 600 ml 1110 ml 600 ml 800 ml Gastric Drainage Total 300 ml 20 ml 500 ml 200 ml Drainage Total 60 ml 30 ml 20 ml 20 ml # Voids 1 # Bowel Movements 0 1 Result Diagram: 01/20/17 0528 01/20/17 0528 Imaging Last Impressions Abdomen X-Ray 01/19/17 0000 Signed Impressions: Service Date/Time: Thursday, January 19, 2017 13:55 - CONCLUSION: Surgical drain present. NG tube in satisfactory position. Persistent gaseous dilatation of bowel which appears somewhat improved Abdiaziz Murphy MD Abdomen/Pelvis CT 01/15/17 0000 Signed Impressions: Service Date/Time: December 09:06 - CONCLUSION: 1. Interval increase in the size of the abscess in the upper pelvis. There is surrounding inflammatory change. 2. Findings consistent with a small bowel obstruction with transition point in the pelvis. The distal small bowel is decompressed. Several loops are slightly more prominent. There is no free air. 3. Interval placement of a nasogastric tube with the tip in the distal stomach or pylorus. Valentino Davis MD Consultation 01/12/17 0000 Signed Impressions: Service Date/Time: Thursday, January 12, 2017 00:00 - CONCLUSION: Abscess seen centrally is not amenable to percutaneous CT-guided drainage. Juan Pablo Pearl MD Objective Remarks GENERAL: This is a well-nourished, well-developed patient, in no apparent distress with NG tube in place. CARDIOVASCULAR: Regular rate and regular rhythm without murmurs, gallops, or rubs. RESPIRATORY: Clear to auscultation. Breath sounds equal bilaterally. No wheezes , rales, or rhonchi. GASTROINTESTINAL: Abdomen soft, non-tender, nondistended. drain in place. MUSCULOSKELETAL: Extremities without clubbing, cyanosis, or edema. NEURO: Alert & Oriented x4 to person, place, time, situation. Moves all ext x4 Procedures Diagnostic laparoscopy, Laparoscopic appendectomy on 01/15/2017 Medications and IVs Current Medications Sodium Chloride (NS Flush) 2 ml UNSCH PRN IV FLUSH FLUSH AFTER USING IV ACCESS ; Start 01/11/17 at 17:45; Stop 01/11/17 at 22:42; Status DC Iohexol 90 ml 90 ml STK-MED ONCE IV Last administered on 01/11/17 18:54; Start 01/11/17 at 18:54; Stop 01/11/17 at 18:55; Status DC Ampicillin Sodium/ Sulbactam Sodium/ Sodium Chloride (Unasyn Inj/NS Inj) 100 ml @ 200 mls/hr ONCE ONCE IV Last administered on 01/11/17 19:51; Start at 19:30; Stop 01/11/17 at 19:59; Status DC Lorazepam (Ativan Inj) 1 mg ONCE ONCE IV PUSH Last administered on 01/11/17 21:15; Start 01/11/17 at 21:15; Stop 01/11/17 at 21:16; Status DC Lidocaine HCl 1 applic 1 applic ONCE ONCE TOPICAL Last administered on 21:15; Start 01/11/17 at 21:15; Stop 01/11/17 at 21:16; Status DC Sodium Chloride 1,000 ml @ 999 mls/hr BOLUS ONCE IV Last administered on 01/11 21:30; Start 01/11/17 at 21:30; Stop 01/11/17 at 22:32; Status DC Sodium Chloride (NS 1000 ml Inj) 1,000 ml @ 125 mls/hr Q8H IV Last administered on 01/13/17 07:43; Start 01/11/17 at 22:34; Stop 01/13/17 at 09:58 ; Status DC Sodium Chloride (NS Flush) 2 ml UNSCH PRN IV FLUSH FLUSH AFTER USING IV ACCESS ; Start 01/11/17 at 22:45 Sodium Chloride (NS Flush) 2 ml BID IV FLUSH Last administered on 01/19/17 21: 35; Start 01/12/17 at 09:00 Acetaminophen (Tylenol) 650 mg Q4H PRN PO TEMP > 100.4; Start 01/11/17 at 22:45 Ondansetron HCl (Zofran Inj) 4 mg Q6H PRN IVP NAUSEA OR VOMITING Last administered on 01/20/17 06:35; Start 01/11/17 at 22:45 Acetaminophen (Tylenol) 650 mg Q6H PRN PO PAIN SCALE 1 TO 2; Start 01/11/17 at 22:45 Morphine Sulfate (Morphine Inj) 2 mg Q1H PRN IV PAIN SCALE 1-10 (INTRACTABLE) Last administered on 01/20/17 06:35; Start 01/11/17 at 22:45 Naloxone HCl (Narcan Inj) 0.4 mg UNSCH PRN IV SEE LABEL COMMENTS; Start at 22:45 Pantoprazole Sodium (Protonix Inj) 40 mg Q24H IV PUSH Last administered on 08:50; Start 01/12/17 at 09:00 Albuterol/ Ipratropium (Duoneb Neb) 1 ampule Q2HR NEB PRN NEB SOB/WHEEZING; Start 01/11/17 at 22:45 Phenol (Chloraseptic [place]) 2 spray Q2H PRN OROPHARYNG ngt pain Last administered on 01/12/17 05:28; Start 01/12/17 at 00:30 Patient Own Medication Advair 100-50 mcg one p... BID INH ; Start 01/12/17 at 00 :45; Status UNV Pneumococcal Polyvalent Vaccine (Pneumovax-23 Inj) 25 mcg ONCE ONCE IM ; Start 01/12/17 at 09:00; Stop 01/12/17 at 09:01; Status DC Influenza Virus Vaccine (Flu (Quadrivalent) Vaccine Inj) 0.5 ml ONCE ONCE IM ; Start 01/12/17 at 09:00; Stop 01/12/17 at 09:01; Status DC Budesonide/ Formoterol Fumarate 2 puff 2 puff BID INH Last administered on 21:33; Start 01/12/17 at 09:00 Ciprofloxacin/ Dextrose 200 ml @ 200 mls/hr Q12HR IV Last administered on 21:35; Start 01/12/17 at 21:00 Metronidazole (Flagyl 500 Mg Inj) 100 ml @ 100 mls/hr Q8HR IV Last administered on 01/12/17 17:44; Start 01/12/17 at 17:00; Stop 01/12/17 at 22:25 ; Status DC Diphenhydramine HCl 25 mg 25 mg ONCE ONCE IV PUSH Last administered on 22:04; Start 01/12/17 at 21:00; Stop 01/12/17 at 21:01; Status DC Metronidazole 100 ml @ 100 mls/hr Q8HR IV Last administered on 01/20/17 05:24 ; Start 01/13/17 at 01:00 Potassium Chloride/Dextrose/ Sod Cl (D5-1/2 NS + KCl 20 Meq Inj) 1,000 ml @ 125 mls/hr Q8H IV Last administered on 01/20/17 06:35; Start 01/13/17 at 10:00 Enoxaparin Sodium (Lovenox Inj) 40 mg Q24H SQ Last administered on 01/19/17 14: 58; Start 01/13/17 at 14:00 Diphenhydramine HCl (Benadryl Inj) 25 mg ONCE ONCE IV PUSH Last administered on 01/13/17 22:29; Start 01/13/17 at 20:00; Stop 01/13/17 at 20:01; Status DC Potassium Chloride 30 meq 30 meq ONCE ONCE PO ; Start 01/14/17 at 09:45; Stop 01/14/17 at 09:45; Status DC Potassium Chloride (KCl 20 Meq Premix Inj) 100 ml @ 50 mls/hr Q2H IV Last administered on 01/14/17 14:22; Start 01/14/17 at 10:00; Stop 01/14/17 at 13:59 ; Status DC Iohexol (Omnipaque 350 Inj) 95 ml STK-MED ONCE IV Last administered on 09:18; Start 01/15/17 at 09:18; Stop 01/15/17 at 09:19; Status DC Midazolam HCl (Versed Inj) 2 mg STK-MED ONCE .ROUTE Last administered on 11:27; Start 01/15/17 at 11:23; Stop 01/15/17 at 11:24; Status DC Famotidine (Pepcid Inj) 20 mg STK-MED ONCE .ROUTE Last administered on 11:25; Start 01/15/17 at 11:24; Stop 01/15/17 at 11:25; Status DC Bupivacaine HCl/ Epinephrine Bitart (Marcaine-Epi Pf 0.25% Inj) 30 ml STK-MED ONCE .ROUTE Last administered on 01/15/17 12:09; Start 01/15/17 at 11:42; Stop 01/15/17 at 11:43; Status DC Fentanyl Citrate (fentaNYL INJ) 250 mcg STK-MED ONCE .ROUTE ; Start 01/15/17 at 14:03; Stop 01/15/17 at 14:04; Status DC Fentanyl Citrate (fentaNYL INJ) 100 mcg STK-MED ONCE .ROUTE ; Start 01/15/17 at 14:03; Stop 01/15/17 at 14:04; Status DC Miscellaneous Information ALL NURSING DEPARTME... UNSCH PRN .XX SEE LABEL COMMENTS; Start 01/15/17 at 13:44; Stop 01/16/17 at 13:43; Status DC Magnesium Sulfate/ Dextrose 100 ml @ 100 mls/hr Q1H IV Last administered on 17:28; Start 01/16/17 at 17:15; Stop 01/16/17 at 18:31; Status DC Sodium Phosphate 15 mmol/Sodium Chloride 155 ml @ 38.75 mls/ hr ONCE ONCE IV Last administered on 01/16/17 18:16; Start 01/16/17 at 18:00; Stop 01/16/17 at 21:59; Status DC Magnesium Sulfate/ Dextrose 100 ml @ 100 mls/hr Q1H IV Last administered on 20:10; Start 01/16/17 at 21:00; Stop 01/16/17 at 21:59; Status DC Sodium Phosphate/ Sodium Chloride (Sodium Phosphate Inj/NS Inj) 155 ml @ 38.75 mls/ hr ONCE ONCE IV Last administered on 01/17/17 11:35; Start 01/17/17 at 10:00; Stop 01/17/17 at 13:59; Status DC Zolpidem Tartrate (Ambien) 10 mg HS PRN PO INSOMNIA Last administered on 00:33; Start 01/18/17 at 21:00 A/P Assessment and Plan A/P (1) Sepsis- due to intraabdominal abscess s/p laparoscopic drainage of the abscess- Blood cultures no growth to date/ fluid culture with e-coli continue IV ciprofloxacin and IV Flagyl. continue with pain control. ID and surgery following. (2) Small bowel obstruction General surgery consulted . GS initially recommended medical management, patient is sp diagnostic laparoscopy with appendectomy. Continue IV fluids. Continue to follow general surgery recommendations. (3) COPD (chronic obstructive pulmonary disease)/ asthma Seems to be stable. Continue DuoNeb's as needed. (4) Hypophosphatemia Due to nutritional deficiency. replaced. DVT prophylaxis with Lovenox. Annie Franco MD January 20, 2017 08:20
[2017-01-20] MEDS: CIPROFLOXACIN 400 MG PREMIX 200 ML IV SCH ×2 (08:46→21:54)
[2017-01-20] MEDS: SODIUM CHLORIDE 0.9% FLUSH 10 ML FLUSH IV FLUSH SCH ×2 (08:46→21:54)
[2017-01-20] MEDS: PANTOPRAZOLE SODIUM 40 MG VIAL IV PUSH SCH (08:46)
--- NOTE | 2017-01-20 11:31 | HHI.PR ---
Subjective Subjective Notes Resting in bed Feels better now that NGT out Objective Vitals/I&O Vital Signs Date Time Temp Pulse Resp B/P Pulse Ox O2 Delivery O2 Flow Rate FiO2 01/20/17 08:00 97.7 88 18 123/75 95 01/19/17 21:50 Room Air Labs Laboratory Tests Test 01/19/17 01/20/17 12:40 05:28 White Blood Count 15.7 15.6 Red Blood Count 4.49 4.27 Hemoglobin 14.3 13.6 Hematocrit 41.8 39.5 Mean Corpuscular Volume 93.2 92.6 Mean Corpuscular Hemoglobin 31.8 31.9 Mean Corpuscular Hemoglobin 34.1 34.5 Concent Red Cell Distribution Width 13.7 13.3 Platelet Count 327 307 Mean Platelet Volume 9.9 9.4 Neutrophils (%) (Auto) 83.5 78.1 Lymphocytes (%) (Auto) 8.0 11.0 Monocytes (%) (Auto) 7.1 9.2 Eosinophils (%) (Auto) 1.1 1.6 Basophils (%) (Auto) 0.3 0.1 Neutrophils # (Auto) 13.1 12.2 Lymphocytes # (Auto) 1.3 1.7 Monocytes # (Auto) 1.1 1.4 Eosinophils # (Auto) 0.2 0.3 Basophils # (Auto) 0.0 0.0 CBC Comment DIFF FINAL DIFF FINAL Differential Comment Sodium Level 137 138 Potassium Level 4.0 3.8 Chloride Level 104 104 Carbon Dioxide Level 23.2 25.8 Anion Gap 10 8 Blood Urea Nitrogen 6 6 Creatinine 0.85 0.84 Estimat Glomerular Filtration 95 96 Rate Random Glucose 123 110 Calcium Level 8.8 8.4 Phosphorus Level 2.6 Date/Time Procedure Status Source Growth 01/15/17 12:20 Gram Stain - Final Complete Abscess Abdomen 01/15/17 12:20 Wound Culture - Final Complete Escherichia Coli 01/15/17 12:20 Fungal Smear - Final Resulted Abscess Abdomen NO FUNGAL ELEMENTS SEEN. 01/15/17 12:20 Fungal Culture Resulted Abscess Abdomen Pending 01/15/17 12:20 Acid Fast Stain - Final Resulted Abscess Abdomen NO ACID FAST BACILLI SEEN 01/15/17 12:20 Mycobacterial Culture Resulted Abscess Abdomen Pending Cardiovascular: Regular Lungs: Clear Abdomen: Other (MEG in place with SS drainage; lap sites c/d/i; ), Post-op tenderness Extremities: No edema Narrative Exam NGT removed A/P Assessment and Plan 51 year old male with POD5 Dx lap appy, drainage of abscess -Continue IVF -Cipro/Flagyl -Start clears -NGT removed -+BM -Encouraged mobilization -Labs in AM -Okay for Lovenox from GS standpoint Attending Statement patient seen at bedside feels better start clears Attestation The exam, history, and the medical decision-making described in the above note were completed with the assistance of the mid-level provider. I reviewed and agree with the findings presented. I attest that I had a [id number] encounter with the patient on the same day, and personally performed and documented my assessment and findings in the medical record. Sandra Null January 20, 2017 11:31 Jam Serrano MD January 27, 2017 22:24
[2017-01-20 12:00] VITALS: BP 119/74; PULSE 78; RESP 18; TEMP 96.9; O2SAT 96
[2017-01-20] MEDS: ENOXAPARIN SODIUM 40 MG/0.4 ML SYRINGE SQ SCH (15:28)
[2017-01-20] MEDS: BUDESONIDE-FORMOTEROL 80/4.5 MCG INHALER INH SCH ×2 (15:30→21:54)
[2017-01-20 16:00] VITALS: BP 140/90; PULSE 88; RESP 19; TEMP 96.6; O2SAT 96
[2017-01-20 20:00] VITALS: BP 125/76; PULSE 72; RESP 20; TEMP 97.9; O2SAT 97
[2017-01-20 22:53] LABS: C. DIFF EPI 027 PRESUMPTIVE NEGATIVE (NEGATIVE); C. DIFF TOXIN PCR NEGATIVE (NEGATIVE)
[2017-01-21] VITALS: BP 147/85; PULSE 80; RESP 20; TEMP 96.8; O2SAT 96
[2017-01-21] MEDS: D5-1/2 NS + KCL 20 MEQ INJ 1,000 ML IV SCH ×4 (02:11→21:57)
[2017-01-21] MEDS: metroNIDAZOLE 500 MG INJ 100 ML IV SCH ×3 (05:19→21:53)
[2017-01-21 06:20] LABS: AUTOMATED NEUTROPHIL # 12.9 TH/MM3 (1.8-7.7); BASOPHIL % 0.2 % (0.0-2.0); EOSINOPHIL # 0.2 TH/MM3 (0-0.4); EOSINOPHIL % 1.4 % (0.0-4.0); HEMATOCRIT 40.1 % (39.0-51.0); HEMO FLAGS DIFF FINAL; LYMPH % 10.9 % (9.0-44.0); LYMPHOCYTE # 1.8 TH/MM3 (1.0-4.8); MEAN CELL VOLUME 93.7 FL (80.0-100.0); MEAN CORPUSCULAR HEMOGLOBIN 30.8 PG (27.0-34.0); MEAN CORPUSCULAR HGB CONC 32.8 % (32.0-36.0); MONO % 8.9 % (0.0-8.0); NEUT % 78.6 % (16.0-70.0); PLATELET COUNT 293 TH/MM3 (150-450); RED BLOOD COUNT 4.28 MIL/MM3 (4.50-5.90); RED CELL DISTRIBUTION WIDTH 13.4 % (11.6-17.2); WHITE BLOOD COUNT 16.4 TH/MM3 (4.0-11.0)
[2017-01-21 06:42] LABS: BICARBONATE 25.2 MEQ/L (21.0-32.0); POTASSIUM 3.9 MEQ/L (3.5-5.1)
[2017-01-21 08:00] VITALS: BP 119/77; PULSE 79; RESP 10; TEMP 98.2; O2SAT 96
[2017-01-21] MEDS: CIPROFLOXACIN 400 MG PREMIX 200 ML IV SCH ×2 (08:18→21:53)
[2017-01-21] MEDS: PANTOPRAZOLE SODIUM 40 MG VIAL IV PUSH SCH (08:19)
[2017-01-21] MEDS: BUDESONIDE-FORMOTEROL 80/4.5 MCG INHALER INH SCH ×2 (08:21→21:53)
[2017-01-21] MEDS: SODIUM CHLORIDE 0.9% FLUSH 10 ML FLUSH IV FLUSH SCH ×2 (08:21→21:00)
--- NOTE | 2017-01-21 10:13 | HHI.PR ---
Subjective Remarks overall doing fine. no fever. abdominal pain is mild. no nausea or vomiting. Objective Vitals Vital Signs Date Time Temp Pulse Resp B/P Pulse Ox O2 Delivery O2 Flow Rate FiO2 01/21/17 08:00 98.2 79 10 119/77 96 01/21/17 00:00 96.8 80 20 147/85 96 01/20/17 21:50 Room Air 01/20/17 20:00 97.9 72 20 125/76 97 01/20/17 16:04 Room Air 01/20/17 16:00 96.6 88 19 140/90 96 01/20/17 12:00 96.9 78 18 119/74 96 01/20/17 12:00 96.9 78 18 119/74 96 I/O 01/20/17 01/20/17 01/20/17 01/21/17 01/21/17 01/21/17 07:00 15:00 23:00 07:00 15:00 23:00 Intake Total 1008 ml 0 ml 2013 ml 859 ml Output Total 1020 ml 450 ml 100 ml 880 ml Balance -12 ml -450 ml 1913 ml -21 ml Intake Oral 0 ml 120 ml 0 ml IV Total 1008 ml 1893 ml 859 ml Output Urine Total 800 ml 450 ml 850 ml Gastric Drainage Total 200 ml Drainage Total 20 ml 100 ml 30 ml # Voids 4 1 # Bowel Movements 1 3 1 Result Diagram: 01/21/17 0528 01/21/17 0528 Imaging Last Impressions Abdomen X-Ray 01/19/17 0000 Signed Impressions: Service Date/Time: Thursday, January 19, 2017 13:55 - CONCLUSION: Surgical drain present. NG tube in satisfactory position. Persistent gaseous dilatation of bowel which appears somewhat improved Abdiaziz Murphy MD Abdomen/Pelvis CT 01/15/17 0000 Signed Impressions: Service Date/Time: December 09:06 - CONCLUSION: 1. Interval increase in the size of the abscess in the upper pelvis. There is surrounding inflammatory change. 2. Findings consistent with a small bowel obstruction with transition point in the pelvis. The distal small bowel is decompressed. Several loops are slightly more prominent. There is no free air. 3. Interval placement of a nasogastric tube with the tip in the distal stomach or pylorus. Valentino Davis MD Consultation 01/12/17 0000 Signed Impressions: Service Date/Time: Thursday, January 12, 2017 00:00 - CONCLUSION: Abscess seen centrally is not amenable to percutaneous CT-guided drainage. Juan Pablo Pearl MD Objective Remarks GENERAL: This is a well-nourished, well-developed patient, in no apparent distress with NG tube in place. CARDIOVASCULAR: Regular rate and regular rhythm without murmurs, gallops, or rubs. RESPIRATORY: Clear to auscultation. Breath sounds equal bilaterally. No wheezes , rales, or rhonchi. GASTROINTESTINAL: Abdomen soft, non-tender, nondistended. drain in place. MUSCULOSKELETAL: Extremities without clubbing, cyanosis, or edema. NEURO: Alert & Oriented x4 to person, place, time, situation. Moves all ext x4 Procedures Diagnostic laparoscopy, Laparoscopic appendectomy on 01/15/2017 Medications and IVs Current Medications Sodium Chloride (NS Flush) 2 ml UNSCH PRN IV FLUSH FLUSH AFTER USING IV ACCESS ; Start 01/11/17 at 17:45; Stop 01/11/17 at 22:42; Status DC Iohexol 90 ml 90 ml STK-MED ONCE IV Last administered on 01/11/17 18:54; Start 01/11/17 at 18:54; Stop 01/11/17 at 18:55; Status DC Ampicillin Sodium/ Sulbactam Sodium/ Sodium Chloride (Unasyn Inj/NS Inj) 100 ml @ 200 mls/hr ONCE ONCE IV Last administered on 01/11/17 19:51; Start at 19:30; Stop 01/11/17 at 19:59; Status DC Lorazepam (Ativan Inj) 1 mg ONCE ONCE IV PUSH Last administered on 01/11/17 21:15; Start 01/11/17 at 21:15; Stop 01/11/17 at 21:16; Status DC Lidocaine HCl 1 applic 1 applic ONCE ONCE TOPICAL Last administered on 21:15; Start 01/11/17 at 21:15; Stop 01/11/17 at 21:16; Status DC Sodium Chloride 1,000 ml @ 999 mls/hr BOLUS ONCE IV Last administered on 01/11 21:30; Start 01/11/17 at 21:30; Stop 01/11/17 at 22:32; Status DC Sodium Chloride (NS 1000 ml Inj) 1,000 ml @ 125 mls/hr Q8H IV Last administered on 01/13/17 07:43; Start 01/11/17 at 22:34; Stop 01/13/17 at 09:58 ; Status DC Sodium Chloride (NS Flush) 2 ml UNSCH PRN IV FLUSH FLUSH AFTER USING IV ACCESS ; Start 01/11/17 at 22:45 Sodium Chloride (NS Flush) 2 ml BID IV FLUSH Last administered on 01/21/17 08: 21; Start 01/12/17 at 09:00 Acetaminophen (Tylenol) 650 mg Q4H PRN PO TEMP > 100.4; Start 01/11/17 at 22:45 Ondansetron HCl (Zofran Inj) 4 mg Q6H PRN IVP NAUSEA OR VOMITING Last administered on 01/20/17 21:54; Start 01/11/17 at 22:45 Acetaminophen (Tylenol) 650 mg Q6H PRN PO PAIN SCALE 1 TO 2; Start 01/11/17 at 22:45 Morphine Sulfate (Morphine Inj) 2 mg Q1H PRN IV PAIN SCALE 1-10 (INTRACTABLE) Last administered on 01/20/17 06:35; Start 01/11/17 at 22:45 Naloxone HCl (Narcan Inj) 0.4 mg UNSCH PRN IV SEE LABEL COMMENTS; Start at 22:45 Pantoprazole Sodium (Protonix Inj) 40 mg Q24H IV PUSH Last administered on 08:19; Start 01/12/17 at 09:00 Albuterol/ Ipratropium (Duoneb Neb) 1 ampule Q2HR NEB PRN NEB SOB/WHEEZING; Start 01/11/17 at 22:45 Phenol (Chloraseptic [place]) 2 spray Q2H PRN OROPHARYNG ngt pain Last administered on 01/12/17 05:28; Start 01/12/17 at 00:30 Patient Own Medication Advair 100-50 mcg one p... BID INH ; Start 01/12/17 at 00 :45; Status UNV Pneumococcal Polyvalent Vaccine (Pneumovax-23 Inj) 25 mcg ONCE ONCE IM ; Start 01/12/17 at 09:00; Stop 01/12/17 at 09:01; Status DC Influenza Virus Vaccine (Flu (Quadrivalent) Vaccine Inj) 0.5 ml ONCE ONCE IM ; Start 01/12/17 at 09:00; Stop 01/12/17 at 09:01; Status DC Budesonide/ Formoterol Fumarate 2 puff 2 puff BID INH Last administered on 08:21; Start 01/12/17 at 09:00 Ciprofloxacin/ Dextrose 200 ml @ 200 mls/hr Q12HR IV Last administered on 08:18; Start 01/12/17 at 21:00 Metronidazole (Flagyl 500 Mg Inj) 100 ml @ 100 mls/hr Q8HR IV Last administered on 01/12/17 17:44; Start 01/12/17 at 17:00; Stop 01/12/17 at 22:25 ; Status DC Diphenhydramine HCl 25 mg 25 mg ONCE ONCE IV PUSH Last administered on 22:04; Start 01/12/17 at 21:00; Stop 01/12/17 at 21:01; Status DC Metronidazole 100 ml @ 100 mls/hr Q8HR IV Last administered on 01/21/17 05:19 ; Start 01/13/17 at 01:00 Potassium Chloride/Dextrose/ Sod Cl (D5-1/2 NS + KCl 20 Meq Inj) 1,000 ml @ 125 mls/hr Q8H IV Last administered on 01/21/17 02:11; Start 01/13/17 at 10:00 Enoxaparin Sodium (Lovenox Inj) 40 mg Q24H SQ Last administered on 01/20/17 15: 28; Start 01/13/17 at 14:00 Diphenhydramine HCl (Benadryl Inj) 25 mg ONCE ONCE IV PUSH Last administered on 01/13/17 22:29; Start 01/13/17 at 20:00; Stop 01/13/17 at 20:01; Status DC Potassium Chloride 30 meq 30 meq ONCE ONCE PO ; Start 01/14/17 at 09:45; Stop 01/14/17 at 09:45; Status DC Potassium Chloride (KCl 20 Meq Premix Inj) 100 ml @ 50 mls/hr Q2H IV Last administered on 01/14/17 14:22; Start 01/14/17 at 10:00; Stop 01/14/17 at 13:59 ; Status DC Iohexol (Omnipaque 350 Inj) 95 ml STK-MED ONCE IV Last administered on 09:18; Start 01/15/17 at 09:18; Stop 01/15/17 at 09:19; Status DC Midazolam HCl (Versed Inj) 2 mg STK-MED ONCE .ROUTE Last administered on 11:27; Start 01/15/17 at 11:23; Stop 01/15/17 at 11:24; Status DC Famotidine (Pepcid Inj) 20 mg STK-MED ONCE .ROUTE Last administered on 11:25; Start 01/15/17 at 11:24; Stop 01/15/17 at 11:25; Status DC Bupivacaine HCl/ Epinephrine Bitart (Marcaine-Epi Pf 0.25% Inj) 30 ml STK-MED ONCE .ROUTE Last administered on 01/15/17 12:09; Start 01/15/17 at 11:42; Stop 01/15/17 at 11:43; Status DC Fentanyl Citrate (fentaNYL INJ) 250 mcg STK-MED ONCE .ROUTE ; Start 01/15/17 at 14:03; Stop 01/15/17 at 14:04; Status DC Fentanyl Citrate (fentaNYL INJ) 100 mcg STK-MED ONCE .ROUTE ; Start 01/15/17 at 14:03; Stop 01/15/17 at 14:04; Status DC Miscellaneous Information ALL NURSING DEPARTME... UNSCH PRN .XX SEE LABEL COMMENTS; Start 01/15/17 at 13:44; Stop 01/16/17 at 13:43; Status DC Magnesium Sulfate/ Dextrose 100 ml @ 100 mls/hr Q1H IV Last administered on 17:28; Start 01/16/17 at 17:15; Stop 01/16/17 at 18:31; Status DC Sodium Phosphate 15 mmol/Sodium Chloride 155 ml @ 38.75 mls/ hr ONCE ONCE IV Last administered on 01/16/17 18:16; Start 01/16/17 at 18:00; Stop 01/16/17 at 21:59; Status DC Magnesium Sulfate/ Dextrose 100 ml @ 100 mls/hr Q1H IV Last administered on 20:10; Start 01/16/17 at 21:00; Stop 01/16/17 at 21:59; Status DC Sodium Phosphate/ Sodium Chloride (Sodium Phosphate Inj/NS Inj) 155 ml @ 38.75 mls/ hr ONCE ONCE IV Last administered on 01/17/17 11:35; Start 01/17/17 at 10:00; Stop 01/17/17 at 13:59; Status DC Zolpidem Tartrate (Ambien) 10 mg HS PRN PO INSOMNIA Last administered on 00:33; Start 01/18/17 at 21:00 A/P Assessment and Plan A/P (1) Sepsis- due to intraabdominal abscess s/p laparoscopic drainage of the abscess- Blood cultures no growth to date/ fluid culture with e-coli continue IV ciprofloxacin and IV Flagyl. continue with pain control. ID and surgery following. (2) Small bowel obstruction General surgery consulted . GS initially recommended medical management, patient is sp diagnostic laparoscopy with appendectomy. Continue IV fluids. Continue to follow general surgery recommendations. (3) COPD (chronic obstructive pulmonary disease)/ asthma Seems to be stable. Continue DuoNeb's as needed. (4) Hypophosphatemia Due to nutritional deficiency. replaced. DVT prophylaxis with Lovenox. Annie Franco MD January 21, 2017 10:13
[2017-01-21 12:00] VITALS: BP 122/80; PULSE 83; RESP 16; TEMP 97.7; O2SAT 96
--- NOTE | 2017-01-21 12:09 | HHI.PR ---
Subjective Subjective Notes Resting in bed Tolerating clears Objective Vitals/I&O Vital Signs Date Time Temp Pulse Resp B/P Pulse Ox O2 Delivery O2 Flow Rate FiO2 01/21/17 08:00 98.2 79 10 119/77 96 01/20/17 21:50 Room Air Labs Laboratory Tests Test 01/20/17 01/21/17 20:20 05:28 Stool C. difficile Toxin (PCR) NEGATIVE Stl C. difficile Toxin PRESUMPTIVE Epiderm 027 NEGATIVE White Blood Count 16.4 Red Blood Count 4.28 Hemoglobin 13.2 Hematocrit 40.1 Mean Corpuscular Volume 93.7 Mean Corpuscular Hemoglobin 30.8 Mean Corpuscular Hemoglobin 32.8 Concent Red Cell Distribution Width 13.4 Platelet Count 293 Mean Platelet Volume 9.8 Neutrophils (%) (Auto) 78.6 Lymphocytes (%) (Auto) 10.9 Monocytes (%) (Auto) 8.9 Eosinophils (%) (Auto) 1.4 Basophils (%) (Auto) 0.2 Neutrophils # (Auto) 12.9 Lymphocytes # (Auto) 1.8 Monocytes # (Auto) 1.5 Eosinophils # (Auto) 0.2 Basophils # (Auto) 0.0 CBC Comment DIFF FINAL Differential Comment Sodium Level 139 Potassium Level 3.9 Chloride Level 105 Carbon Dioxide Level 25.2 Anion Gap 9 Blood Urea Nitrogen 5 Creatinine 0.82 Estimat Glomerular Filtration 99 Rate Random Glucose 112 Calcium Level 8.3 Cardiovascular: Regular Lungs: Clear Abdomen: Other (lap sites c/d/i; MEG with serous drainage; minimally tender with palpation ) Extremities: No edema Narrative Exam NGT removed A/P Assessment and Plan 51 year old male with POD6 Dx lap appy, drainage of abscess -Continue IVF -Cipro/Flagyl -Continue clears -+BM -Encouraged mobilization -Labs in AM -Okay for Lovenox from GS standpoint Attending Statement patient seen at bedside pt tolerating clears advance slowly pt progressing Attestation The exam, history, and the medical decision-making described in the above note were completed with the assistance of the mid-level provider. I reviewed and agree with the findings presented. I attest that I had a [id number] encounter with the patient on the same day, and personally performed and documented my assessment and findings in the medical record. Sandra Null January 21, 2017 12:09 Jam Serrano MD January 29, 2017 21:50
[2017-01-21] MEDS: ENOXAPARIN SODIUM 40 MG/0.4 ML SYRINGE SQ SCH (14:54)
[2017-01-21 16:00] VITALS: BP 124/76; PULSE 73; RESP 16; TEMP 98.7; O2SAT 96
[2017-01-21 20:00] VITALS: BP 130/73; PULSE 81; RESP 20; TEMP 98; O2SAT 96
[2017-01-22] VITALS: BP 124/70; PULSE 78; RESP 20; TEMP 97.6; O2SAT 95
[2017-01-22] MEDS: metroNIDAZOLE 500 MG INJ 100 ML IV SCH ×3 (05:30→21:16)
[2017-01-22 05:38] LABS: AUTOMATED NEUTROPHIL # 9.1 TH/MM3 (1.8-7.7); BASOPHIL % 0.4 % (0.0-2.0); EOSINOPHIL # 0.2 TH/MM3 (0-0.4); EOSINOPHIL % 1.7 % (0.0-4.0); HEMATOCRIT 38.4 % (39.0-51.0); HEMO FLAGS DIFF FINAL; LYMPH % 15.5 % (9.0-44.0); LYMPHOCYTE # 1.9 TH/MM3 (1.0-4.8); MEAN CORPUSCULAR HEMOGLOBIN 30.9 PG (27.0-34.0); MEAN CORPUSCULAR HGB CONC 32.8 % (32.0-36.0); MONO % 9.4 % (0.0-8.0); PLATELET COUNT 300 TH/MM3 (150-450); RED BLOOD COUNT 4.08 MIL/MM3 (4.50-5.90); RED CELL DISTRIBUTION WIDTH 13.4 % (11.6-17.2); WHITE BLOOD COUNT 12.4 TH/MM3 (4.0-11.0)
[2017-01-22 05:59] LABS: ANION GAP 6 MEQ/L (5-15); AST (GOT) 18 U/L (15-37); BICARBONATE 26.2 MEQ/L (21.0-32.0); BLOOD UREA NITROGEN 4 MG/DL (7-18); CHLORIDE 108 MEQ/L (98-107); GLOMERULAR FILTRATION RATE 98 ML/MIN (>89); POTASSIUM 4.1 MEQ/L (3.5-5.1); SODIUM (NA) 140 MEQ/L (136-145)
[2017-01-22 06:03] LABS: ALKALINE PHOSPHATASE 76 U/L (45-117); ALT (GPT) 23 U/L (12-78); TOTAL BILIRUBIN ADULT 0.3 MG/DL (0.2-1.0)
--- NOTE | 2017-01-22 08:43 | HHI.PR ---
Subjective Remarks overall doing fine. mild abdominal pain. no nausea or vomiting. no fever. Objective Vitals Vital Signs Date Time Temp Pulse Resp B/P Pulse Ox O2 Delivery O2 Flow Rate FiO2 01/22/17 00:00 97.6 78 20 124/70 95 01/21/17 21:50 Room Air 01/21/17 20:00 98.0 81 20 130/73 96 01/21/17 16:00 98.7 73 16 124/76 96 01/21/17 12:00 97.7 83 16 122/80 96 I/O 01/21/17 01/21/17 01/21/17 01/22/17 01/22/17 01/22/17 07:00 15:00 23:00 07:00 15:00 23:00 Intake Total 859 ml 1660 ml 2039 ml 1376 ml Output Total 880 ml 20 ml 870 ml 610 ml Balance -21 ml 1640 ml 1169 ml 766 ml Intake Oral 0 ml 660 ml 480 ml 480 ml IV Total 859 ml 1000 ml 1559 ml 896 ml Output Urine Total 850 ml 850 ml 600 ml Drainage Total 30 ml 20 ml 20 ml 10 ml # Voids 4 # Bowel Movements 4 0 0 Result Diagram: 01/22/17 0453 01/22/17 0453 Imaging Last Impressions Abdomen X-Ray 01/19/17 0000 Signed Impressions: Service Date/Time: Thursday, January 19, 2017 13:55 - CONCLUSION: Surgical drain present. NG tube in satisfactory position. Persistent gaseous dilatation of bowel which appears somewhat improved Abdiaziz Murphy MD Abdomen/Pelvis CT 01/15/17 0000 Signed Impressions: Service Date/Time: December 09:06 - CONCLUSION: 1. Interval increase in the size of the abscess in the upper pelvis. There is surrounding inflammatory change. 2. Findings consistent with a small bowel obstruction with transition point in the pelvis. The distal small bowel is decompressed. Several loops are slightly more prominent. There is no free air. 3. Interval placement of a nasogastric tube with the tip in the distal stomach or pylorus. Valentino Davis MD Consultation 01/12/17 0000 Signed Impressions: Service Date/Time: Thursday, January 12, 2017 00:00 - CONCLUSION: Abscess seen centrally is not amenable to percutaneous CT-guided drainage. Juan Pablo Pearl MD Objective Remarks GENERAL: This is a well-nourished, well-developed patient, in no apparent distress with NG tube in place. CARDIOVASCULAR: Regular rate and regular rhythm without murmurs, gallops, or rubs. RESPIRATORY: Clear to auscultation. Breath sounds equal bilaterally. No wheezes , rales, or rhonchi. GASTROINTESTINAL: Abdomen soft, non-tender, nondistended. drain in place. MUSCULOSKELETAL: Extremities without clubbing, cyanosis, or edema. NEURO: Alert & Oriented x4 to person, place, time, situation. Moves all ext x4 Procedures Diagnostic laparoscopy, Laparoscopic appendectomy on 01/15/2017 Medications and IVs Current Medications Sodium Chloride (NS Flush) 2 ml UNSCH PRN IV FLUSH FLUSH AFTER USING IV ACCESS ; Start 01/11/17 at 17:45; Stop 01/11/17 at 22:42; Status DC Iohexol 90 ml 90 ml STK-MED ONCE IV Last administered on 01/11/17 18:54; Start 01/11/17 at 18:54; Stop 01/11/17 at 18:55; Status DC Ampicillin Sodium/ Sulbactam Sodium/ Sodium Chloride (Unasyn Inj/NS Inj) 100 ml @ 200 mls/hr ONCE ONCE IV Last administered on 01/11/17 19:51; Start at 19:30; Stop 01/11/17 at 19:59; Status DC Lorazepam (Ativan Inj) 1 mg ONCE ONCE IV PUSH Last administered on 01/11/17 21:15; Start 01/11/17 at 21:15; Stop 01/11/17 at 21:16; Status DC Lidocaine HCl 1 applic 1 applic ONCE ONCE TOPICAL Last administered on 21:15; Start 01/11/17 at 21:15; Stop 01/11/17 at 21:16; Status DC Sodium Chloride 1,000 ml @ 999 mls/hr BOLUS ONCE IV Last administered on 01/11 21:30; Start 01/11/17 at 21:30; Stop 01/11/17 at 22:32; Status DC Sodium Chloride (NS 1000 ml Inj) 1,000 ml @ 125 mls/hr Q8H IV Last administered on 01/13/17 07:43; Start 01/11/17 at 22:34; Stop 01/13/17 at 09:58 ; Status DC Sodium Chloride (NS Flush) 2 ml UNSCH PRN IV FLUSH FLUSH AFTER USING IV ACCESS ; Start 01/11/17 at 22:45 Sodium Chloride (NS Flush) 2 ml BID IV FLUSH Last administered on 01/21/17 08: 21; Start 01/12/17 at 09:00 Acetaminophen (Tylenol) 650 mg Q4H PRN PO TEMP > 100.4; Start 01/11/17 at 22:45 Ondansetron HCl (Zofran Inj) 4 mg Q6H PRN IVP NAUSEA OR VOMITING Last administered on 01/20/17 21:54; Start 01/11/17 at 22:45 Acetaminophen (Tylenol) 650 mg Q6H PRN PO PAIN SCALE 1 TO 2; Start 01/11/17 at 22:45 Morphine Sulfate (Morphine Inj) 2 mg Q1H PRN IV PAIN SCALE 1-10 (INTRACTABLE) Last administered on 01/20/17 06:35; Start 01/11/17 at 22:45 Naloxone HCl (Narcan Inj) 0.4 mg UNSCH PRN IV SEE LABEL COMMENTS; Start at 22:45 Pantoprazole Sodium (Protonix Inj) 40 mg Q24H IV PUSH Last administered on 08:19; Start 01/12/17 at 09:00 Albuterol/ Ipratropium (Duoneb Neb) 1 ampule Q2HR NEB PRN NEB SOB/WHEEZING; Start 01/11/17 at 22:45 Phenol (Chloraseptic [employer]) 2 spray Q2H PRN OROPHARYNG ngt pain Last administered on 01/12/17 05:28; Start 01/12/17 at 00:30 Patient Own Medication Advair 100-50 mcg one p... BID INH ; Start 01/12/17 at 00 :45; Status UNV Pneumococcal Polyvalent Vaccine (Pneumovax-23 Inj) 25 mcg ONCE ONCE IM ; Start 01/12/17 at 09:00; Stop 01/12/17 at 09:01; Status DC Influenza Virus Vaccine (Flu (Quadrivalent) Vaccine Inj) 0.5 ml ONCE ONCE IM ; Start 01/12/17 at 09:00; Stop 01/12/17 at 09:01; Status DC Budesonide/ Formoterol Fumarate 2 puff 2 puff BID INH Last administered on 21:53; Start 01/12/17 at 09:00 Ciprofloxacin/ Dextrose 200 ml @ 200 mls/hr Q12HR IV Last administered on 21:53; Start 01/12/17 at 21:00 Metronidazole (Flagyl 500 Mg Inj) 100 ml @ 100 mls/hr Q8HR IV Last administered on 01/12/17 17:44; Start 01/12/17 at 17:00; Stop 01/12/17 at 22:25 ; Status DC Diphenhydramine HCl 25 mg 25 mg ONCE ONCE IV PUSH Last administered on 22:04; Start 01/12/17 at 21:00; Stop 01/12/17 at 21:01; Status DC Metronidazole 100 ml @ 100 mls/hr Q8HR IV Last administered on 01/22/17 05:30 ; Start 01/13/17 at 01:00 Potassium Chloride/Dextrose/ Sod Cl (D5-1/2 NS + KCl 20 Meq Inj) 1,000 ml @ 125 mls/hr Q8H IV Last administered on 01/21/17 21:57; Start 01/13/17 at 10:00 ; Stop 01/22/17 at 06:57; Status DC Enoxaparin Sodium (Lovenox Inj) 40 mg Q24H SQ Last administered on 01/21/17 14: 54; Start 01/13/17 at 14:00 Diphenhydramine HCl (Benadryl Inj) 25 mg ONCE ONCE IV PUSH Last administered on 01/13/17 22:29; Start 01/13/17 at 20:00; Stop 01/13/17 at 20:01; Status DC Potassium Chloride 30 meq 30 meq ONCE ONCE PO ; Start 01/14/17 at 09:45; Stop 01/14/17 at 09:45; Status DC Potassium Chloride (KCl 20 Meq Premix Inj) 100 ml @ 50 mls/hr Q2H IV Last administered on 01/14/17 14:22; Start 01/14/17 at 10:00; Stop 01/14/17 at 13:59 ; Status DC Iohexol (Omnipaque 350 Inj) 95 ml STK-MED ONCE IV Last administered on 09:18; Start 01/15/17 at 09:18; Stop 01/15/17 at 09:19; Status DC Midazolam HCl (Versed Inj) 2 mg STK-MED ONCE .ROUTE Last administered on 11:27; Start 01/15/17 at 11:23; Stop 01/15/17 at 11:24; Status DC Famotidine (Pepcid Inj) 20 mg STK-MED ONCE .ROUTE Last administered on 11:25; Start 01/15/17 at 11:24; Stop 01/15/17 at 11:25; Status DC Bupivacaine HCl/ Epinephrine Bitart (Marcaine-Epi Pf 0.25% Inj) 30 ml STK-MED ONCE .ROUTE Last administered on 01/15/17 12:09; Start 01/15/17 at 11:42; Stop 01/15/17 at 11:43; Status DC Fentanyl Citrate (fentaNYL INJ) 250 mcg STK-MED ONCE .ROUTE ; Start 01/15/17 at 14:03; Stop 01/15/17 at 14:04; Status DC Fentanyl Citrate (fentaNYL INJ) 100 mcg STK-MED ONCE .ROUTE ; Start 01/15/17 at 14:03; Stop 01/15/17 at 14:04; Status DC Miscellaneous Information ALL NURSING DEPARTME... UNSCH PRN .XX SEE LABEL COMMENTS; Start 01/15/17 at 13:44; Stop 01/16/17 at 13:43; Status DC Magnesium Sulfate/ Dextrose 100 ml @ 100 mls/hr Q1H IV Last administered on 17:28; Start 01/16/17 at 17:15; Stop 01/16/17 at 18:31; Status DC Sodium Phosphate 15 mmol/Sodium Chloride 155 ml @ 38.75 mls/ hr ONCE ONCE IV Last administered on 01/16/17 18:16; Start 01/16/17 at 18:00; Stop 01/16/17 at 21:59; Status DC Magnesium Sulfate/ Dextrose 100 ml @ 100 mls/hr Q1H IV Last administered on 20:10; Start 01/16/17 at 21:00; Stop 01/16/17 at 21:59; Status DC Sodium Phosphate/ Sodium Chloride (Sodium Phosphate Inj/NS Inj) 155 ml @ 38.75 mls/ hr ONCE ONCE IV Last administered on 01/17/17 11:35; Start 01/17/17 at 10:00; Stop 01/17/17 at 13:59; Status DC Zolpidem Tartrate (Ambien) 10 mg HS PRN PO INSOMNIA Last administered on 00:33; Start 01/18/17 at 21:00 A/P Assessment and Plan A/P (1) Sepsis- due to intraabdominal abscess s/p laparoscopic drainage of the abscess- Blood cultures no growth to date/ fluid culture with e-coli continue IV ciprofloxacin and IV Flagyl. continue with pain control. ID and surgery following. (2) Small bowel obstruction General surgery consulted . GS initially recommended medical management, patient is sp diagnostic laparoscopy with appendectomy. Continue IV fluids. Continue to follow general surgery recommendations. (3) COPD (chronic obstructive pulmonary disease)/ asthma Seems to be stable. Continue DuoNeb's as needed. (4) Hypophosphatemia Due to nutritional deficiency. replaced. DVT prophylaxis with Lovenox. Annie Franco MD January 22, 2017 08:43
[2017-01-22] MEDS: SODIUM CHLORIDE 0.9% FLUSH 10 ML FLUSH IV FLUSH SCH ×2 (08:54→20:03)
[2017-01-22] MEDS: CIPROFLOXACIN 400 MG PREMIX 200 ML IV SCH ×2 (08:54→20:03)
[2017-01-22] MEDS: BUDESONIDE-FORMOTEROL 80/4.5 MCG INHALER INH SCH ×2 (08:54→20:03)
[2017-01-22] MEDS: PANTOPRAZOLE SODIUM 40 MG VIAL IV PUSH SCH (08:55)
[2017-01-22 09:34] VITALS: BP 119/76; PULSE 71; RESP 16; TEMP 97.6; O2SAT 95
[2017-01-22 12:00] VITALS: BP 110/71; PULSE 79; RESP 16; TEMP 96.9; O2SAT 95
[2017-01-22] MEDS: ENOXAPARIN SODIUM 40 MG/0.4 ML SYRINGE SQ SCH (14:22)
--- NOTE | 2017-01-22 15:56 | HHI.IDPN ---
Subjective Subjective Remarks doing better tolerating full diet still liquid stool but C.diff is negative Antibiotics cipro flaygl Allergies: Coded Allergies: No Known Allergies (Unverified , 01/11/17) Objective . Vital Signs Date Time Temp Pulse Resp B/P Pulse Ox O2 Delivery O2 Flow Rate FiO2 01/22/17 12:00 96.9 79 16 110/71 95 01/22/17 09:34 97.6 71 16 119/76 95 01/22/17 00:00 97.6 78 20 124/70 95 01/21/17 21:50 Room Air 01/21/17 20:00 98.0 81 20 130/73 96 01/21/17 16:00 98.7 73 16 124/76 96 01/21/17 01/21/17 01/22/17 15:00 23:00 07:00 Intake Total 1660 ml 2039 ml 1376 ml Output Total 20 ml 870 ml 610 ml Balance 1640 ml 1169 ml 766 ml Intake Oral 660 ml 480 ml 480 ml IV Total 1000 ml 1559 ml 896 ml Output Urine Total 850 ml 600 ml Drainage Total 20 ml 20 ml 10 ml # Voids 4 # Bowel Movements 4 0 0 . Laboratory Tests Test 01/21/17 01/22/17 05:28 04:53 White Blood Count 16.4 TH/MM3 12.4 TH/MM3 Red Blood Count 4.28 MIL/MM3 4.08 MIL/MM3 Hemoglobin 13.2 GM/DL 12.6 GM/DL Hematocrit 40.1 % 38.4 % Mean Corpuscular Volume 93.7 FL 94.0 FL Mean Corpuscular Hemoglobin 30.8 PG 30.9 PG Mean Corpuscular Hemoglobin 32.8 % 32.8 % Concent Red Cell Distribution Width 13.4 % 13.4 % Platelet Count 293 TH/MM3 300 TH/MM3 Mean Platelet Volume 9.8 FL 9.6 FL Neutrophils (%) (Auto) 78.6 % 73.0 % Lymphocytes (%) (Auto) 10.9 % 15.5 % Monocytes (%) (Auto) 8.9 % 9.4 % Eosinophils (%) (Auto) 1.4 % 1.7 % Basophils (%) (Auto) 0.2 % 0.4 % Neutrophils # (Auto) 12.9 TH/MM3 9.1 TH/MM3 Lymphocytes # (Auto) 1.8 TH/MM3 1.9 TH/MM3 Monocytes # (Auto) 1.5 TH/MM3 1.2 TH/MM3 Eosinophils # (Auto) 0.2 TH/MM3 0.2 TH/MM3 Basophils # (Auto) 0.0 TH/MM3 0.0 TH/MM3 CBC Comment DIFF FINAL DIFF FINAL Differential Comment Laboratory Tests Test 01/21/17 01/22/17 05:28 04:53 Sodium Level 139 MEQ/L 140 MEQ/L Potassium Level 3.9 MEQ/L 4.1 MEQ/L Chloride Level 105 MEQ/L 108 MEQ/L Carbon Dioxide Level 25.2 MEQ/L 26.2 MEQ/L Anion Gap 9 MEQ/L 6 MEQ/L Blood Urea Nitrogen 5 MG/DL 4 MG/DL Creatinine 0.82 MG/DL 0.83 MG/DL Estimat Glomerular Filtration 99 ML/MIN 98 ML/MIN Rate Random Glucose 112 MG/DL 105 MG/DL Calcium Level 8.3 MG/DL 8.7 MG/DL Total Bilirubin 0.3 MG/DL Aspartate Amino Transf 18 U/L (AST/SGOT) Alanine Aminotransferase 23 U/L (ALT/SGPT) Alkaline Phosphatase 76 U/L Total Protein 5.8 GM/DL Albumin 2.4 GM/DL Imaging Last Impressions Abdomen X-Ray 01/19/17 0000 Signed Impressions: Service Date/Time: Thursday, January 19, 2017 13:55 - CONCLUSION: Surgical drain present. NG tube in satisfactory position. Persistent gaseous dilatation of bowel which appears somewhat improved Abdiaziz Murphy MD Abdomen/Pelvis CT 01/15/17 0000 Signed Impressions: Service Date/Time: December 09:06 - CONCLUSION: 1. Interval increase in the size of the abscess in the upper pelvis. There is surrounding inflammatory change. 2. Findings consistent with a small bowel obstruction with transition point in the pelvis. The distal small bowel is decompressed. Several loops are slightly more prominent. There is no free air. 3. Interval placement of a nasogastric tube with the tip in the distal stomach or pylorus. Valentino Davis MD Consultation 01/12/17 0000 Signed Impressions: Service Date/Time: Thursday, January 12, 2017 00:00 - CONCLUSION: Abscess seen centrally is not amenable to percutaneous CT-guided drainage. Juan Pablo Pearl MD Physical Exam CONSTITUTIONAL/GENERAL: This is an adequately nourished patient, in no apparent distress. SKIN: No jaundice, rashes, or lesions. S EYES: No scleral icterus. CARDIOVASCULAR: Regular rate and rhythm without murmurs, gallops, or rubs. No JVD. Peripheral pulses symmetric. RESPIRATORY/CHEST: Symmetric, unlabored respirations. Clear to auscultation. Breath sounds equal bilaterally. No wheezes, rales, or rhonchi. GASTROINTESTINAL: Abdomen soft, less tender, just mildly distended. Drain in place in inferior abd with serosag dc No hepato-splenomegaly, or palpable masses. MUSCULOSKELETAL: Extremities without clubbing, cyanosis, or edema. Assessment & Plan Remarks Perforated diverticula, intraabdominal abscess - growing vo S E.coli Diarrhea, negative c.diff taking PO Persistent leukocytosis - resolving - cont cipro, flagyl until two days after resolution of fever, leukocytosis, and ileus, with a maximum of 10 days of antimicrobial therapy change to PO will sign off please call for further issues Bebe Jenkins MD January 22, 2017 15:55
[2017-01-22 16:00] VITALS: BP 119/74; PULSE 82; RESP 16; TEMP 97.5; O2SAT 97
[2017-01-22 20:39] VITALS: BP 112/76; PULSE 79; RESP 17; TEMP 98.7; O2SAT 97
--- NOTE | 2017-01-22 21:54 | HHI.PR ---
Subjective Subjective Notes no issues wbc improving, tolerating diet Objective Vitals/I&O Vital Signs Date Time Temp Pulse Resp B/P Pulse Ox O2 Delivery O2 Flow Rate FiO2 01/22/17 20:39 98.7 79 17 112/76 97 01/21/17 21:50 Room Air Labs Laboratory Tests Test 01/22/17 04:53 White Blood Count 12.4 Red Blood Count 4.08 Hemoglobin 12.6 Hematocrit 38.4 Mean Corpuscular Volume 94.0 Mean Corpuscular Hemoglobin 30.9 Mean Corpuscular Hemoglobin 32.8 Concent Red Cell Distribution Width 13.4 Platelet Count 300 Mean Platelet Volume 9.6 Neutrophils (%) (Auto) 73.0 Lymphocytes (%) (Auto) 15.5 Monocytes (%) (Auto) 9.4 Eosinophils (%) (Auto) 1.7 Basophils (%) (Auto) 0.4 Neutrophils # (Auto) 9.1 Lymphocytes # (Auto) 1.9 Monocytes # (Auto) 1.2 Eosinophils # (Auto) 0.2 Basophils # (Auto) 0.0 CBC Comment DIFF FINAL Differential Comment Sodium Level 140 Potassium Level 4.1 Chloride Level 108 Carbon Dioxide Level 26.2 Anion Gap 6 Blood Urea Nitrogen 4 Creatinine 0.83 Estimat Glomerular Filtration 98 Rate Random Glucose 105 Calcium Level 8.7 Total Bilirubin 0.3 Aspartate Amino Transf 18 (AST/SGOT) Alanine Aminotransferase 23 (ALT/SGPT) Alkaline Phosphatase 76 Total Protein 5.8 Albumin 2.4 Cardiovascular: Regular Lungs: Clear Abdomen: Other (soft mild distension, incisions c/d/i) A/P Assessment and Plan perforated diverticulitis vs acute perforated appy SBO, IR unable to drain abscess s/p Dx lap appy, drainage of abscess PLAN reg diet pain control oob abx d/c rodolfo if wbc improves and prior to d/c likely d/c tomorrow Jam Serrano MD January 22, 2017 21:54
[2017-01-23 00:30] VITALS: BP 113/60; PULSE 74; RESP 18; TEMP 98; O2SAT 98
[2017-01-23] MEDS: metroNIDAZOLE 500 MG INJ 100 ML IV SCH (05:08)
[2017-01-23 06:09] LABS: AUTOMATED NEUTROPHIL # 7.3 TH/MM3 (1.8-7.7); BASOPHIL % 0.3 % (0.0-2.0); EOSINOPHIL # 0.2 TH/MM3 (0-0.4); EOSINOPHIL % 2.1 % (0.0-4.0); HEMATOCRIT 34.9 % (39.0-51.0); HEMO FLAGS DIFF FINAL; LYMPH % 15.1 % (9.0-44.0); LYMPHOCYTE # 1.5 TH/MM3 (1.0-4.8); MEAN CELL VOLUME 93.5 FL (80.0-100.0); MEAN CORPUSCULAR HEMOGLOBIN 32.2 PG (27.0-34.0); MEAN CORPUSCULAR HGB CONC 34.4 % (32.0-36.0); MONO % 9.4 % (0.0-8.0); NEUT % 73.1 % (16.0-70.0); PLATELET COUNT 288 TH/MM3 (150-450); RED BLOOD COUNT 3.73 MIL/MM3 (4.50-5.90); RED CELL DISTRIBUTION WIDTH 13.7 % (11.6-17.2)
[2017-01-23 08:00] VITALS: BP 126/85; PULSE 81; RESP 19; TEMP 96.7; O2SAT 95
--- NOTE | 2017-01-23 09:31 | HHI.PR ---
Subjective Remarks resting comfortably with no distress. pain is minimal. no nausea or vomiting. afebrile. Objective Vitals Vital Signs Date Time Temp Pulse Resp B/P Pulse Ox O2 Delivery O2 Flow Rate FiO2 01/23/17 08:00 96.7 81 19 126/85 95 01/23/17 00:30 98.0 74 18 113/60 98 01/22/17 20:39 98.7 79 17 112/76 97 01/22/17 16:00 97.5 82 16 119/74 97 01/22/17 12:00 96.9 79 16 110/71 95 01/22/17 09:34 97.6 71 16 119/76 95 I/O 01/22/17 01/22/17 01/22/17 01/23/17 01/23/17 01/23/17 07:00 15:00 23:00 07:00 15:00 23:00 Intake Total 1376 ml 895 ml 480 ml 818 ml Output Total 610 ml 615 ml 610 ml Balance 766 ml 895 ml -135 ml 208 ml Intake Oral 480 ml 360 ml 480 ml 380 ml IV Total 896 ml 535 ml 438 ml Output Urine Total 600 ml 600 ml 600 ml Drainage Total 10 ml 15 ml 10 ml # Voids 2 # Bowel Movements 0 2 Result Diagram: 01/23/17 0503 01/22/17 0453 Imaging Last Impressions Abdomen X-Ray 01/19/17 0000 Signed Impressions: Service Date/Time: Thursday, January 19, 2017 13:55 - CONCLUSION: Surgical drain present. NG tube in satisfactory position. Persistent gaseous dilatation of bowel which appears somewhat improved Abdiaziz Murphy MD Abdomen/Pelvis CT 01/15/17 0000 Signed Impressions: Service Date/Time: December 09:06 - CONCLUSION: 1. Interval increase in the size of the abscess in the upper pelvis. There is surrounding inflammatory change. 2. Findings consistent with a small bowel obstruction with transition point in the pelvis. The distal small bowel is decompressed. Several loops are slightly more prominent. There is no free air. 3. Interval placement of a nasogastric tube with the tip in the distal stomach or pylorus. Valentino Davis MD Consultation 01/12/17 0000 Signed Impressions: Service Date/Time: Thursday, January 12, 2017 00:00 - CONCLUSION: Abscess seen centrally is not amenable to percutaneous CT-guided drainage. Juan Pablo Pearl MD Objective Remarks GENERAL: This is a well-nourished, well-developed patient, in no apparent distress with NG tube in place. CARDIOVASCULAR: Regular rate and regular rhythm without murmurs, gallops, or rubs. RESPIRATORY: Clear to auscultation. Breath sounds equal bilaterally. No wheezes , rales, or rhonchi. GASTROINTESTINAL: Abdomen soft, non-tender, nondistended. drain in place. MUSCULOSKELETAL: Extremities without clubbing, cyanosis, or edema. NEURO: Alert & Oriented x4 to person, place, time, situation. Moves all ext x4 Procedures Diagnostic laparoscopy, Laparoscopic appendectomy on 01/15/2017 Medications and IVs Current Medications Sodium Chloride (NS Flush) 2 ml UNSCH PRN IV FLUSH FLUSH AFTER USING IV ACCESS ; Start 01/11/17 at 17:45; Stop 01/11/17 at 22:42; Status DC Iohexol 90 ml 90 ml STK-MED ONCE IV Last administered on 01/11/17 18:54; Start 01/11/17 at 18:54; Stop 01/11/17 at 18:55; Status DC Ampicillin Sodium/ Sulbactam Sodium/ Sodium Chloride (Unasyn Inj/NS Inj) 100 ml @ 200 mls/hr ONCE ONCE IV Last administered on 01/11/17 19:51; Start at 19:30; Stop 01/11/17 at 19:59; Status DC Lorazepam (Ativan Inj) 1 mg ONCE ONCE IV PUSH Last administered on 01/11/17 21:15; Start 01/11/17 at 21:15; Stop 01/11/17 at 21:16; Status DC Lidocaine HCl 1 applic 1 applic ONCE ONCE TOPICAL Last administered on 21:15; Start 01/11/17 at 21:15; Stop 01/11/17 at 21:16; Status DC Sodium Chloride 1,000 ml @ 999 mls/hr BOLUS ONCE IV Last administered on 01/11 21:30; Start 01/11/17 at 21:30; Stop 01/11/17 at 22:32; Status DC Sodium Chloride (NS 1000 ml Inj) 1,000 ml @ 125 mls/hr Q8H IV Last administered on 01/13/17 07:43; Start 01/11/17 at 22:34; Stop 01/13/17 at 09:58 ; Status DC Sodium Chloride (NS Flush) 2 ml UNSCH PRN IV FLUSH FLUSH AFTER USING IV ACCESS ; Start 01/11/17 at 22:45 Sodium Chloride (NS Flush) 2 ml BID IV FLUSH Last administered on 01/22/17 20: 03; Start 01/12/17 at 09:00 Acetaminophen (Tylenol) 650 mg Q4H PRN PO TEMP > 100.4; Start 01/11/17 at 22:45 Ondansetron HCl (Zofran Inj) 4 mg Q6H PRN IVP NAUSEA OR VOMITING Last administered on 01/20/17 21:54; Start 01/11/17 at 22:45 Acetaminophen (Tylenol) 650 mg Q6H PRN PO PAIN SCALE 1 TO 2; Start 01/11/17 at 22:45 Morphine Sulfate (Morphine Inj) 2 mg Q1H PRN IV PAIN SCALE 1-10 (INTRACTABLE) Last administered on 01/20/17 06:35; Start 01/11/17 at 22:45 Naloxone HCl (Narcan Inj) 0.4 mg UNSCH PRN IV SEE LABEL COMMENTS; Start at 22:45 Pantoprazole Sodium (Protonix Inj) 40 mg Q24H IV PUSH Last administered on 08:55; Start 01/12/17 at 09:00 Albuterol/ Ipratropium (Duoneb Neb) 1 ampule Q2HR NEB PRN NEB SOB/WHEEZING; Start 01/11/17 at 22:45 Phenol (Chloraseptic [place]) 2 spray Q2H PRN OROPHARYNG ngt pain Last administered on 01/12/17 05:28; Start 01/12/17 at 00:30 Patient Own Medication Advair 100-50 mcg one p... BID INH ; Start 01/12/17 at 00 :45; Status UNV Pneumococcal Polyvalent Vaccine (Pneumovax-23 Inj) 25 mcg ONCE ONCE IM ; Start 01/12/17 at 09:00; Stop 01/12/17 at 09:01; Status DC Influenza Virus Vaccine (Flu (Quadrivalent) Vaccine Inj) 0.5 ml ONCE ONCE IM ; Start 01/12/17 at 09:00; Stop 01/12/17 at 09:01; Status DC Budesonide/ Formoterol Fumarate 2 puff 2 puff BID INH Last administered on 20:03; Start 01/12/17 at 09:00 Ciprofloxacin/ Dextrose 200 ml @ 200 mls/hr Q12HR IV Last administered on 20:03; Start 01/12/17 at 21:00 Metronidazole (Flagyl 500 Mg Inj) 100 ml @ 100 mls/hr Q8HR IV Last administered on 01/12/17 17:44; Start 01/12/17 at 17:00; Stop 01/12/17 at 22:25 ; Status DC Diphenhydramine HCl 25 mg 25 mg ONCE ONCE IV PUSH Last administered on 22:04; Start 01/12/17 at 21:00; Stop 01/12/17 at 21:01; Status DC Metronidazole 100 ml @ 100 mls/hr Q8HR IV Last administered on 01/23/17 05:08 ; Start 01/13/17 at 01:00 Potassium Chloride/Dextrose/ Sod Cl (D5-1/2 NS + KCl 20 Meq Inj) 1,000 ml @ 125 mls/hr Q8H IV Last administered on 01/21/17 21:57; Start 01/13/17 at 10:00 ; Stop 01/22/17 at 06:57; Status DC Enoxaparin Sodium (Lovenox Inj) 40 mg Q24H SQ Last administered on 01/22/17 14: 22; Start 01/13/17 at 14:00 Diphenhydramine HCl (Benadryl Inj) 25 mg ONCE ONCE IV PUSH Last administered on 01/13/17 22:29; Start 01/13/17 at 20:00; Stop 01/13/17 at 20:01; Status DC Potassium Chloride 30 meq 30 meq ONCE ONCE PO ; Start 01/14/17 at 09:45; Stop 01/14/17 at 09:45; Status DC Potassium Chloride (KCl 20 Meq Premix Inj) 100 ml @ 50 mls/hr Q2H IV Last administered on 01/14/17 14:22; Start 01/14/17 at 10:00; Stop 01/14/17 at 13:59 ; Status DC Iohexol (Omnipaque 350 Inj) 95 ml STK-MED ONCE IV Last administered on 09:18; Start 01/15/17 at 09:18; Stop 01/15/17 at 09:19; Status DC Midazolam HCl (Versed Inj) 2 mg STK-MED ONCE .ROUTE Last administered on 11:27; Start 01/15/17 at 11:23; Stop 01/15/17 at 11:24; Status DC Famotidine (Pepcid Inj) 20 mg STK-MED ONCE .ROUTE Last administered on 11:25; Start 01/15/17 at 11:24; Stop 01/15/17 at 11:25; Status DC Bupivacaine HCl/ Epinephrine Bitart (Marcaine-Epi Pf 0.25% Inj) 30 ml STK-MED ONCE .ROUTE Last administered on 01/15/17 12:09; Start 01/15/17 at 11:42; Stop 01/15/17 at 11:43; Status DC Fentanyl Citrate (fentaNYL INJ) 250 mcg STK-MED ONCE .ROUTE ; Start 01/15/17 at 14:03; Stop 01/15/17 at 14:04; Status DC Fentanyl Citrate (fentaNYL INJ) 100 mcg STK-MED ONCE .ROUTE ; Start 01/15/17 at 14:03; Stop 01/15/17 at 14:04; Status DC Miscellaneous Information ALL NURSING DEPARTME... UNSCH PRN .XX SEE LABEL COMMENTS; Start 01/15/17 at 13:44; Stop 01/16/17 at 13:43; Status DC Magnesium Sulfate/ Dextrose 100 ml @ 100 mls/hr Q1H IV Last administered on 17:28; Start 01/16/17 at 17:15; Stop 01/16/17 at 18:31; Status DC Sodium Phosphate 15 mmol/Sodium Chloride 155 ml @ 38.75 mls/ hr ONCE ONCE IV Last administered on 01/16/17 18:16; Start 01/16/17 at 18:00; Stop 01/16/17 at 21:59; Status DC Magnesium Sulfate/ Dextrose 100 ml @ 100 mls/hr Q1H IV Last administered on 20:10; Start 01/16/17 at 21:00; Stop 01/16/17 at 21:59; Status DC Sodium Phosphate/ Sodium Chloride (Sodium Phosphate Inj/NS Inj) 155 ml @ 38.75 mls/ hr ONCE ONCE IV Last administered on 01/17/17 11:35; Start 01/17/17 at 10:00; Stop 01/17/17 at 13:59; Status DC Zolpidem Tartrate (Ambien) 10 mg HS PRN PO INSOMNIA Last administered on 00:33; Start 01/18/17 at 21:00 A/P Assessment and Plan A/P (1) Sepsis- due to intraabdominal abscess s/p laparoscopic drainage of the abscess- Blood cultures no growth to date/ fluid culture with e-coli continue ciprofloxacin and Flagyl. ID evaluated and signed off. general surgery following. (2) Small bowel obstruction patient is sp diagnostic laparoscopy with appendectomy. general surgery following. (3) COPD (chronic obstructive pulmonary disease)/ asthma Seems to be stable. Continue DuoNeb's as needed. (4) Hypophosphatemia Due to nutritional deficiency. replaced. DVT prophylaxis with Lovenox. Discharge Planning dc home when cleared by general surgery. see med list. f/u; pcp and surgery. d/w the patient and RN. time spent 31 min. Annie Franco MD January 23, 2017 09:31
[2017-01-23] MEDS ORDERED: METR-1 PO (09:32)
[2017-01-23] MEDS ORDERED: CIPR-9 PO (09:32)
--- NOTE | 2017-01-23 09:32 | HHI.DCPOC ---
Discharge Care Plan Diagnosis: (1) Intra-abdominal abscess Your Health Problems Are: Inflammation Chronic Pain Goals to Promote Your Health * To prevent worsening of your condition and complications * To maintain your health at the optimal level Directions to Meet Your Goals Take your medications as prescribed Follow your dietary instruction Follow activity as directed Keep your appointments as scheduled Take your immunizations and boosters as scheduled If your symptoms worsen call your PCP, if no PCP go to Urgent Care Center or Emergency Room Smoking is Dangerous to Your Health. Avoid second hand smoke Call the 24-hour hour crisis hotline for domestic abuse at Annie Franco MD January 23, 2017 09:32
--- NOTE | 2017-01-23 09:33 | HHI.DS ---
Discharge Summary Admission Date Jan 11, 2017 at 21:36 Discharge Date: January 23, 2017 Admitting Diagnosis SEPSIS, abdominal abscess, SBO. (1) Sepsis ICD Code: A41.9 Diagnosis: Principal (2) Intestinal diverticular abscess ICD Code: K63.0 Diagnosis: Principal (3) Small bowel obstruction ICD Code: K56.69 Diagnosis: Principal (4) COPD (chronic obstructive pulmonary disease) ICD Code: J44.9 Diagnosis: Secondary (5) Asthma ICD Code: J45.909 Diagnosis: Secondary (6) Leukocytosis ICD Code: D72.829 Diagnosis: Principal (7) Intra-abdominal abscess ICD Code: K65.1 Diagnosis: Principal (8) Ileus ICD Code: K56.7 Diagnosis: Principal (9) Hypophosphatemia ICD Code: E83.39 Diagnosis: Secondary Procedures Diagnostic laparoscopy, Laparoscopic appendectomy on 01/15/2017 Brief History - From Admission 51-year-old male with a history of asthma presented to the ED for evaluation of worsening symptoms abdominal pain 4 days rated and 8/10 in intensity associated with emesis and nausea. The pain is sharp and patient denies any traumatic event, prior surgical history. He reports, the pain to have started as an acute and sudden onset without any warning. He has had significant decrease by mouth intake CT abdomen in ED revealed perforated diverticulitis along with small bowel obstruction with WBC of 28,000. He reports some shortness of breath however no chest pain or GI bleed CBC/BMP: 01/23/17 0503 01/22/17 0453 Significant Findings Laboratory Tests Test 01/21/17 01/22/17 01/23/17 05:28 04:53 05:03 White Blood Count 16.4 TH/MM3 12.4 TH/MM3 (4.0-11.0) (4.0-11.0) Red Blood Count 4.28 MIL/MM3 4.08 MIL/MM3 3.73 MIL/MM3 (4.50-5.90) (4.50-5.90) (4.50-5.90) Neutrophils (%) (Auto) 78.6 % 73.0 % 73.1 % (16.0-70.0) (16.0-70.0) (16.0-70.0) Monocytes (%) (Auto) 8.9 % (0.0-8.0) 9.4 % (0.0-8.0) 9.4 % (0.0-8.0) Neutrophils # (Auto) 12.9 TH/MM3 9.1 TH/MM3 (1.8-7.7) (1.8-7.7) Monocytes # (Auto) 1.5 TH/MM3 1.2 TH/MM3 (0-0.9) (0-0.9) Blood Urea Nitrogen 5 MG/DL (7-18) 4 MG/DL (7-18) Random Glucose 112 MG/DL (74-106) Calcium Level 8.3 MG/DL (8.5-10.1) Hemoglobin 12.6 GM/DL 12.0 GM/DL (13.0-17.0) (13.0-17.0) Hematocrit 38.4 % 34.9 % (39.0-51.0) (39.0-51.0) Chloride Level 108 MEQ/L (98-107) Total Protein 5.8 GM/DL (6.4-8.2) Albumin 2.4 GM/DL (3.4-5.0) Imaging Last Impressions Abdomen X-Ray 01/19/17 0000 Signed Impressions: Service Date/Time: Thursday, January 19, 2017 13:55 - CONCLUSION: Surgical drain present. NG tube in satisfactory position. Persistent gaseous dilatation of bowel which appears somewhat improved Abdiaziz Murphy MD Abdomen/Pelvis CT 01/15/17 0000 Signed Impressions: Service Date/Time: December 09:06 - CONCLUSION: 1. Interval increase in the size of the abscess in the upper pelvis. There is surrounding inflammatory change. 2. Findings consistent with a small bowel obstruction with transition point in the pelvis. The distal small bowel is decompressed. Several loops are slightly more prominent. There is no free air. 3. Interval placement of a nasogastric tube with the tip in the distal stomach or pylorus. Valentino Davis MD Consultation 01/12/17 0000 Signed Impressions: Service Date/Time: Thursday, January 12, 2017 00:00 - CONCLUSION: Abscess seen centrally is not amenable to percutaneous CT-guided drainage. Juan Pablo Pearl MD PE at Discharge GENERAL: This is a well-nourished, well-developed patient, in no apparent distress with NG tube in place. CARDIOVASCULAR: Regular rate and regular rhythm without murmurs, gallops, or rubs. RESPIRATORY: Clear to auscultation. Breath sounds equal bilaterally. No wheezes , rales, or rhonchi. GASTROINTESTINAL: Abdomen soft, non-tender, nondistended. drain in place. MUSCULOSKELETAL: Extremities without clubbing, cyanosis, or edema. NEURO: Alert & Oriented x4 to person, place, time, situation. Moves all ext x4 Hospital Course (1) Sepsis- due to intraabdominal abscess s/p laparoscopic drainage of the abscess- Blood cultures no growth to date/ fluid culture with e-coli continue ciprofloxacin and Flagyl. ID evaluated and signed off. general surgery following. (2) Small bowel obstruction patient is sp diagnostic laparoscopy with appendectomy. general surgery following. (3) COPD (chronic obstructive pulmonary disease)/ asthma Seems to be stable. Continue DuoNeb's as needed. (4) Hypophosphatemia Due to nutritional deficiency. replaced. DVT prophylaxis with Lovenox. Pt Condition on Discharge: Good Discharge Disposition: Discharge Home Discharge Time: > 30 minutes Discharge Instructions DIET: Follow Instructions for: Heart Healthy Diet Activities you can perform: Regular-No Restrictions Follow up Referrals: PCP Follow-up Surgical New Medications: Ciprofloxacin (Cipro) 500 Mg Tab 500 MG PO BID Infection Days 2 Ref 0 TAB Metronidazole (Flagyl) 500 Mg Tab 500 MG PO TID Infection Days 2 Ref 0 TAB Continued Medications: Albuterol 8.5 GM Inh (Proair Hfa 8.5 GM Inh) 90 Mcg/Act Aer 2 PUFF INH Q6H 108 mcg/actuation PRN SHORTNESS OF BREATH #1 Ref 3 INHALER Fluticasone-Salmeterol Inh (Advair Diskus Inh) 100-50 Mcg/Blist Aer 1 PUFF INH BID Rinse mouth after use. Asthma Management #1 Ref 3 INHALER Annie Franco MD January 23, 2017 09:33
[2017-01-23] MEDS: CIPROFLOXACIN 400 MG PREMIX 200 ML IV SCH (09:41)
[2017-01-23] MEDS: BUDESONIDE-FORMOTEROL 80/4.5 MCG INHALER INH SCH (09:41)
[2017-01-23] MEDS: SODIUM CHLORIDE 0.9% FLUSH 10 ML FLUSH IV FLUSH SCH (09:42)
[2017-01-23] MEDS: PANTOPRAZOLE SODIUM 40 MG VIAL IV PUSH SCH (09:42)
[2017-01-23 12:00] VITALS: BP 120/72; PULSE 82; RESP 17; TEMP 97.3; O2SAT 95
[2017-01-23] MEDS ORDERED: PERC5TAB12 PO (13:27)
--- NOTE | 2017-01-23 15:42 | HHI.PR ---
Subjective Subjective Notes no issues, tolerating diet, +bms wbc normal Objective Vitals/I&O Vital Signs Date Time Temp Pulse Resp B/P Pulse Ox O2 Delivery O2 Flow Rate FiO2 01/23/17 12:00 97.3 82 17 120/72 95 01/23/17 09:00 Room Air Labs Laboratory Tests Test 01/23/17 05:03 White Blood Count 10.0 Red Blood Count 3.73 Hemoglobin 12.0 Hematocrit 34.9 Mean Corpuscular Volume 93.5 Mean Corpuscular Hemoglobin 32.2 Mean Corpuscular Hemoglobin 34.4 Concent Red Cell Distribution Width 13.7 Platelet Count 288 Mean Platelet Volume 9.7 Neutrophils (%) (Auto) 73.1 Lymphocytes (%) (Auto) 15.1 Monocytes (%) (Auto) 9.4 Eosinophils (%) (Auto) 2.1 Basophils (%) (Auto) 0.3 Neutrophils # (Auto) 7.3 Lymphocytes # (Auto) 1.5 Monocytes # (Auto) 0.9 Eosinophils # (Auto) 0.2 Basophils # (Auto) 0.0 CBC Comment DIFF FINAL Differential Comment Cardiovascular: Regular Lungs: Clear Abdomen: Other (soft incisions c/d/i, rodolfo serous) A/P Assessment and Plan perforated diverticulitis vs acute perforated appy SBO, IR unable to drain abscess s/p Dx lap appy, drainage of abscess PLAN reg diet pain control oob abx per id d/c rodolfo if wbc improves and prior to d/c d/c home today Jam Serrano MD January 23, 2017 15:42
== END 2017-01-23 16:30 | disposition home or self-care (01) | DRG 854 ==
LOC: NEPD 17:24 → NEDA 21:36 → N07B 23:32
PROVIDERS: ADMIT Internal Medicine; ATTEND Internal Medicine
PROC: 0DTJ4ZZ Resection of Appendix, Percutaneous Endoscopic Approach (ICD-10-PCS; principal; 2017-01-15 11:33)
PROC: 0W9J4ZZ Drainage of Pelvic Cavity, Percutaneous Endoscopic Approach (ICD-10-PCS; 2017-01-15 11:33)
DX: A41.9 Sepsis, unspecified organism (principal); K56.60 Unspecified intestinal obstruction; K57.20 Diverticulitis of large intestine with perforation and abscess without bleeding; K56.7 Ileus, unspecified; E83.39 Other disorders of phosphorus metabolism; J44.9 Chronic obstructive pulmonary disease, unspecified; J45.909 Unspecified asthma, uncomplicated; E87.6 Hypokalemia; B96.20 Unspecified Escherichia coli [E. coli] as the cause of diseases classified elsewhere
CPT/HCPCS: 74000; 74177; 76937; 80048; 80053; 81001; 83605; 83690; 83735; 84100; 85025; 85027; 87015; 87040; 87070; 87102; 87116; 87205; 87206; 87493; 88304; 93005; 96365; 96375; C9113; J0295; J0744; J1200; J1650; J2060; J2250; J2270; J2405; J3010; J3475; J3480; J7030; J7060; J7120; Q9967

== ENCOUNTER → 2017-03-13 | Outpatient (CLI) | payer OTHER ==
[~2017-03-13] MED LIST changes: +CIPR-9 PO; +METR-1 PO; +PERC5TAB12 PO
--- NOTE | 2017-03-13 10:01 | RADRPT ---
EXAM DATE/TIME: 03/13/2017 09:28 [facility] COMPARISON: No previous studies available for comparison. INDICATIONS : Left sided back/flank mass. MEDICAL HISTORY : Asthma. Dyspnea. SURGICAL HISTORY : Appendectomy. Right ankle surgery. Orthopedic surgery, right foot. Intestine cyst removal. ENCOUNTER: Initial ACUITY: > 1 year PAIN SCORE: 0/10 LOCATION: Left flank AREA EVALUATED: Left neck mass. FINDINGS: The examination demonstrates a well-circumscribed hyperechoic mass measuring 7.5 x 1.1 cm. This appea rs well encapsulated and is within the deep subcutaneous soft tissues. This would be most consistent with a lipoma. Clinical followup to ensure this does not enlarge is warranted. CONCLUSION: 1. The patient's palpable mass corresponds to a 7.5 x 1.1 cm well-circumscribed hyperechoic lesion. T his is most consistent with lipoma. Clinical followup to ensure this is not a large would be warrante d. If there is clinical enlargement further workup would be recommended. Anand Ott MD on March 13, 2017 at 9:58 Board Certified Radiologist. This report was verified electronically.
== END ==
LOC: HRAD 08:55
PROVIDERS: ATTEND Family Medicine
DX: R22.1 Localized swelling, mass and lump, neck (principal)
CPT/HCPCS: 76999

== ENCOUNTER → 2017-04-06 | Outpatient (CLI) | payer OTHER ==
[~2017-04-06] MED LIST changes: -CIPR-9 PO; +IOHEXOL 350 MG/ML 10 ML VIAL (for RAD DIAG) IV ONE; -METR-1 PO; -PERC5TAB12 PO
--- NOTE | 2017-04-06 14:42 | RADRPT ---
EXAM DATE/TIME: 04/06/2017 14:24 [facility] COMPARISON: CT ABDOMEN & PELVIS W CONTRAST, January 15, 2017, 9:06. INDICATIONS : Perforated diverticulum, possible abscess. IV CONTRAST: 82 cc Omnipaque 350 (iohexol) IV ORAL CONTRAST: Prescribed oral contrast ingested. RADIATION DOSE: 9.63 CTDIvol (mGy) MEDICAL HISTORY : None SURGICAL HISTORY : Appendectomy. ENCOUNTER: Initial ACUITY: 1 day PAIN SCALE: 3/10 LOCATION: Bilateral lower quadrant TECHNIQUE: Volumetric scanning of the abdomen and pelvis was performed. Using automated exposure control and ad justment of the mA and/or kV according to patient size, radiation dose was kept as low as reasonably achievable to obtain optimal diagnostic quality images. DICOM format image data is available electro nically for review and comparison. FINDINGS: LOWER LUNGS: The visualized lower lungs are clear. LIVER: Homogeneous density without lesion. There is no dilation of the biliary tree. No calcified gallston es. SPLEEN: Normal size without lesion. PANCREAS: Within normal limits. KIDNEYS: Normal in size and shape. There is no mass, stone or hydronephrosis. ADRENAL GLANDS: Within normal limits. VASCULAR: There is no aortic aneurysm. BOWEL/MESENTERY: The stomach, small bowel, and colon demonstrate no acute abnormality. There is no free intraperitone al air or fluid. ABDOMINAL WALL: Within normal limits. RETROPERITONEUM: There is no lymphadenopathy. BLADDER: No wall thickening or mass. REPRODUCTIVE: Within normal limits. INGUINAL: There is no lymphadenopathy or hernia. MUSCULOSKELETAL: Within normal limits for patient age. CONCLUSION: Normal examination. The bowel gas pattern is unremarkable without any evidence of obstruction or infl ammation. Mckinley Jacinto MD on April 06, 2017 at 14:40 Board Certified Radiologist. This report was verified electronically.
== END ==
LOC: HRAD 11:50
PROVIDERS: ATTEND Family Medicine
DX: K65.1 Peritoneal abscess (principal); K57.80 Diverticulitis of intestine, part unspecified, with perforation and abscess without bleeding; K56.7 Ileus, unspecified
CPT/HCPCS: 74177; Q9967

== ENCOUNTER → 2017-05-04 | Day surgery (SDC) | payer OTHER ==
[~2017-05-04] MED LIST changes: -IOHEXOL 350 MG/ML 10 ML VIAL (for RAD DIAG) IV ONE; +PROPOFOL 500 MG/50 ML BTL IV ONE
--- NOTE | 2017-05-04 14:12 | GIPROC ---
[facility] [address] [facility], [address] COLONOSCOPY PROCEDURE REPORT EXAM DATE: 05/04/2017 PATIENT NAME: Elvis Nixon MR #: [id number] BIRTHDATE: 1965 ENDOSCOPIST: Ellen Drummond MD ORDER #: [id number] PACKING ROOM SUPERVISOR: Kaitlin Fowler RN STATUS: outpatient INDICATIONS: The patient is a 51 yr old male here for a colonoscopy due to average risk patient for colon cancer PROCEDURE PERFORMED: Colonoscopy with polypectomy MEDICATIONS: None and Per Anesthesia. PREP QUALITY: fair ESTIMATED BLOOD LOSS: None CONSENT: The patient understands the risks and benefits of the procedure and understands that these risks include, but are not limited to: sedation, allergic reaction, infection, perforation and/or bleeding. Alternative means of evaluation and treatment include, among others: physical exam, x-rays, and/or surgical intervention. The patient elects to proceed with this endoscopic procedure. medical equipment was checked for proper function. Hand hygiene and appropriate measures for infection prevention was taken. After the risks, benefits and alternatives of the procedure were thoroughly explained, Informed consent was verified, confirmed and timeout was successfully executed by the treatment team. A digital exam revealed no abnormalities of the rectum The EC-[id number] ([id number]) and [id number] ([id number]) endoscope was introduced through the anus and advanced to the cecum, which was identified by both the appendix and ileocecal valve. The instrument was then slowly withdrawn as the colon was fully examined. COLON FINDINGS: Moderate diverticulosis was noted in the sigmoid colon and descending colon. Small polyp in the sigmoid removed completely. The colon mucosa was otherwise normal. Retroflexed views revealed no abnormalities The scope was then completely withdrawn from the patient and the procedure terminated. ADVERSE EVENTS: There were no complications. IMPRESSIONS: 1. Moderate diverticulosis was noted in the sigmoid colon and descending colon 2. Small polyp in the sigmoid removed completely 3. The colon mucosa was otherwise normal 4. Retroflexed views revealed no abnormalities 5. Revealed no abnormalities of the rectum RECOMMENDATIONS: 1. Await biopsy results. Biopsy results will not be ready for 7-10 days. If you don't hear from us in two weeks, call our office for results. 2. Yearly hemoccult 3. High fiber diet RECALL: Return 5 years Colonoscopy Ellen Drummond MD eSigned: Ellen Drummond MD 05/04/2017 2:12 PM cc: Adela Zarate M.D.
== END | disposition home or self-care (01) ==
LOC: ESDC 11:55
PROVIDERS: ATTEND Hospitalist
DX: Z12.11 Encounter for screening for malignant neoplasm of colon (principal); D12.5 Benign neoplasm of sigmoid colon; K57.90 Diverticulosis of intestine, part unspecified, without perforation or abscess without bleeding
CPT/HCPCS: 88305

== ENCOUNTER 2017-09-14 17:20 | Emergency (ER) | payer SELFPAY ==
[~2017-09-14] VITALS: Ht 175.3 cm; Wt 85.0 kg
[~2017-09-14 17:20] MED LIST changes: -PROPOFOL 500 MG/50 ML BTL IV ONE
[2017-09-14 17:24] VITALS: BP 133/91; PULSE 110; RESP 22; TEMP 99.5
[2017-09-14 17:44] VITALS: PULSE 107; RESP 22; O2SAT 94
[2017-09-14] MEDS ORDERED: methylPREDNISolone SOD SUCC 125 MG/2 ML VIAL IM ONE (18:00)
[2017-09-14] MEDS ORDERED: SODIUM CHLORIDE 0.9% FLUSH 10 ML FLUSH IVF PRN (18:00)
--- NOTE | 2017-09-14 18:10 | PD ---
HPI Chief Complaint: Cold / Flu Symptoms Time Seen by Provider: 17:39 Travel History International Travel<30 days: No Contact w/Intl Traveler<30days: No Traveled to known affect area: No History of Present Illness HPI 52-year-old male with history of COPD and asthma presents to the emergency room for evaluation of shortness of breath, productive cough, and upper respiratory symptoms for the past 4 days. Symptoms started off as a sore throat that developed into a productive cough with yellow sputum. He denies body aches or fevers. States he threw up after taking a lot of DayQuil/NyQuil but not otherwise. He had to use his rescue nebulizer treatments this morning and he has not had to do so in 2 years. He takes Advair daily. PFSH Past Medical History Asthma: Yes Blood Disorders: No Anxiety: Yes Depression: Yes Cardiovascular Problems: No COPD: Yes Diabetes: No Endocrine: No Genitourinary: No Immune Disorder: No Musculoskeletal: Yes Neurologic: No Psychiatric: Yes Reproductive: No Respiratory: Yes (ASTHMA) Thyroid Disease: No Past Surgical History Body Medical Devices: ROBSON LEFT LEG/ SCREWS/PLATE RIGHT ANKLE Other Surgery: Yes Social History Alcohol Use: Yes (occ) Tobacco Use: No Substance Use: Yes (marijuana) Allergies-Medications (Allergen,Severity, Reaction): Coded Allergies: No Known Allergies (Unverified , 03/19/17) Reported Meds & Prescriptions Reported Meds & Active Scripts Active Advair Diskus Inh (Fluticasone-Salmeterol Inh) 100-50 Mcg/Blist Aer 1 Puff INH BID Rinse mouth after use. Proair Hfa 8.5 GM Inh (Albuterol Sulfate) 90 Mcg/Act Aer 2 Puff INH Q6H PRN 108 mcg/actuation Review of Systems Except as stated in HPI: all other systems reviewed are Neg Physical Exam Narrative GENERAL: Well-nourished, well-developed male in no acute distress. Afebrile. Ambulatory. SKIN: Focused skin assessment warm/dry. HEAD: Normocephalic. EYES: No scleral icterus. No injection or drainage. ENT: Mucosa pink and moist. No significant erythema or exudates. No uvular edema. No uvular, palatal, or tonsillar deviation. Airway patent. Nasal turbinates appear normal without nasal blood, purulent drainage or septal hematoma. EARS: Bilateral pinnae and external canals appear within normal limits. Bilateral tympanic membranes without erythema, dullness or perforation. NECK: Supple, trachea midline. No JVD or lymphadenopathy. CARDIOVASCULAR: Regular rate and rhythm without murmurs, gallops, or rubs. RESPIRATORY: Breath sounds equal bilaterally. No accessory muscle use. Diffuse inspiratory and expiratory wheezes and rales bilaterally. Data Data Last Documented VS Vital Signs Date Time Temp Pulse Resp B/P (MAP) Pulse Ox O2 Delivery O2 Flow Rate FiO2 09/14/17 17:45 107 20 94 Room Air 09/14/17 17:24 99.5 133/91 (105) Orders Orders Influenzae A/B Antigen (09/14/17 17:59) Iv Access Insert/Monitor (09/14/17 17:59) Ecg Monitoring (09/14/17 17:59) Oximetry (09/14/17 17:59) Oxygen Administration (09/14/17 17:59) Chest, Pa & Lat (09/14/17 17:59) Sodium Chloride 0.9% Flush (Ns Flush) (09/14/17 18:00) Methylprednisolone So Succ Inj (Solumedr (09/14/17 18:00) Albuterol-Ipratropium Neb (Duoneb Neb) (09/14/17 18:00) MDM Medical Decision Making Medical Screen Exam Complete: Yes Emergency Medical Condition: Yes Medical Record Reviewed: Yes Differential Diagnosis Pneumonia, COPD exacerbation, asthma, influenza Narrative Course 52-year-old male with history of COPD presents to the emergency room for evaluation of a productive cough of yellow sputum, sore throat, wheezing for the past 4 days. Denies fever, chills, or body aches. Physical exam reveals coarse lung sounds bilaterally with wheezes and rhonchi. Patient is 93% on room air. Slight increased work of breathing. Slightly tachycardic, likely secondary to albuterol nebulizer treatment he took just prior to arrival. Patient is positive for influenza. Chest x-ray is negative. I reassessed him after one breathing treatment without significant improvement in symptoms. He will be monitored in the emergency room after his next to breathing treatments to determine whether he improves enough to go home. Please refer to nighttime provider's note for disposition. Condition: Stable Umm Sloan Sep 14, 2017 18:09
[2017-09-14] MEDS: RESP: ALBUTEROL 2.5 MG/IPRATROPIUM 0.5 MG NEB (SCH) INH (18:26)
--- NOTE | 2017-09-14 18:35 | RADRPT ---
EXAM DATE/TIME: 09/14/2017 18:13 [facility] COMPARISON: CHEST PA & LAT, July 28, 2015, 21:42. INDICATIONS : Shortness of breath, cough. MEDICAL HISTORY : None. SURGICAL HISTORY : None. ENCOUNTER: Initial ACUITY: 1 day PAIN SCORE: 0/10 LOCATION: Bilateral chest FINDINGS: PA and lateral views of the chest. The lungs are clear. Cardiomediastinal silhouette within normal li mits. No evidence of pleural effusion or pneumothorax. Old anterior wedge deformity of the T12 verteb ral body. CONCLUSION: No acute cardiopulmonary disease identified. Roberth Bauman MD on September 14, 2017 at 18:32 Board Certified Radiologist. This report was verified electronically.
[2017-09-14] MEDS ORDERED: MORPHINE SULFATE 2 MG/ML INJ IV PUSH ONE (19:15)
[2017-09-14 19:38] VITALS: PULSE 92; RESP 16; O2SAT 95
[2017-09-14] MEDS ORDERED: PRED10PA2 PO (19:52)
--- NOTE | 2017-09-14 19:55 | PD ---
Physical Exam Date Seen by Provider: Sep 14, 2017 Narrative This patient was initially evaluated by BONNY Rodriguez. He came in with respiratory distress. He was found to have influenza. He has been treated with DuoNeb times and Solu-Medrol. On examination following the therapy, he has good breath sounds. He has diffuse expiratory wheezes. His respiratory rate is 18 and his oxygen saturation is 95% on room air. Data Data Last Documented VS Vital Signs Date Time Temp Pulse Resp B/P (MAP) Pulse Ox O2 Delivery O2 Flow Rate FiO2 09/14/17 19:38 92 16 95 Room Air 09/14/17 17:24 99.5 133/91 (105) Orders Orders Influenzae A/B Antigen (09/14/17 17:59) Iv Access Insert/Monitor (09/14/17 17:59) Ecg Monitoring (09/14/17 17:59) Oximetry (09/14/17 17:59) Oxygen Administration (09/14/17 17:59) Chest, Pa & Lat (09/14/17 17:59) Sodium Chloride 0.9% Flush (Ns Flush) (09/14/17 18:00) Methylprednisolone So Succ Inj (Solumedr (09/14/17 18:00) Albuterol-Ipratropium Neb (Duoneb Neb) (09/14/17 18:00) Morphine Inj (Morphine Inj) (09/14/17 19:15) Ed Discharge Order (09/14/17 19:53) MDM Supervised Visit with DAREN: Yes Narrative Course I, Dr. Yen, have reviewed the advance practice practitioner's documentation and am in agreement, met with the patient face to face, made the diagnosis, and the medical decision making was done by me. *My assessment and Findings: This patient has the flu associated with bronchospasm. He is much better following treatment. He has been sick for 5 days so it is too late for Tamiflu. He is being discharged home with instructions to use his pro-air as needed for difficulty breathing. He has been given a prescription for steroid taper. Diagnosis Primary Impression: Influenza Additional Impression: Bronchospasm Patient Instructions: General Instructions Departure Forms: Tests/Procedures Additional Instruction: Rest and drink plenty of fluids. Follow-up with a primary care physician. Return to the emergency room for worsening symptoms. Use your ProAir for shortness of breath. Scripts Prednisone (48) 10 mg tab Dose Pack (Prednisone (48) 10 mg tab Dose Pack) 10 Mg Dspk 10 MG PO DIRECTED for Inflammation, #1 DSPK 0 Refills Prov: Mariel Yen MD 09/14/17 Disposition: 01 DISCHARGE HOME Condition: Stable Mariel Yen MD Sep 14, 2017 19:55
== END 2017-09-14 20:07 | disposition home or self-care (01) ==
LOC: NEPD 17:20
DX: J11.1 Influenza due to unidentified influenza virus with other respiratory manifestations (principal); F41.9 Anxiety disorder, unspecified; F32.9 Major depressive disorder, single episode, unspecified; Z79.51 Long term (current) use of inhaled steroids
CPT/HCPCS: 71020; 87804; 94640; 94664; 96372; 99284; J2930